=== PATIENT | female | born 1990 | race Caucasian/White ===

== ENCOUNTER → 2018-07-16 16:11 | Outpatient (CLI) | payer SELFPAY ==
[2018-07-16 17:53] LABS: Hemoglobin 14.2 g/dl (12.0-15.0); Mean Corp Hgb Conc 34.6 g/gl (32-36); Mean Corpuscular Hgb 30.1 pg (27.0-32.0); Mean Platelet Vol. 10.9 fl (6.2-12.0); Platelet Count 227 K/mm3 (150-450); RBC Distribution Width CV 12.6 % (11.6-14.6); RBC Distribution Width SD 40.6 fl (35.1-43.9); Red Blood Count 4.71 M/mm3 (4.2-5.4); White Blood Count 7.9 K/mm3 (4.4-11.0)
[2018-07-16 17:55] LABS: Scan Indicated on CBC? Y/N NO
[2018-07-16 17:57] LABS: AST(SGOT) 16 U/L (15-37); Alanine Aminotransfer ALT/SGPT 34 U/L (13-56); Albumin, Serum 4.3 g/dL (3.2-5.0); Alkaline Phosphatase 28 U/L (45-117); Globulin 3.3 g/dL (2.2-4.2); Protein, Total 7.6 g/dL (6.4-8.2)
== END ==
PROVIDERS: Visit Provider Obstetrics & Gynecology
DX: R10.11 Right upper quadrant pain (principal)
CPT/HCPCS: 36415; 80076; 85027

== ENCOUNTER → 2018-07-29 | Outpatient (CLI) | payer SELFPAY ==
--- NOTE | 2018-07-29 07:37 | CT_ITS ---
STUDY: CT ABDOMEN WITH CONTRAST REASON FOR EXAM: Female, 27 years old. 1 1/2 year history of right upper quadrant pain. RADIATION DOSAGE (If Supplied By Facility): CTDIvol = ( 11.93 ) mGy, DLP = ( 534.23 ) mGycm TECHNIQUE: Transaxial images were obtained post I.V. administration of 100 IV/Oral Isovue 300, and with oral contrast. Sagittal and coronal images were reconstructed. Individualized dose optimization techniques were used for this CT. COMPARISON: None. FINDINGS: The visualized lung bases are unremarkable. The visualized portions of the heart are within normal limits. There is decreased attenuation of the liver consistent with steatosis. Normal gallbladder and extrahepatic biliary system. Normal spleen. Normal pancreas. Normal bilateral adrenal glands. Normal right kidney. Normal left kidney. There is a small hiatal hernia. Normal small intestine. Moderate amount of fecal material is seen in the colon. The appendix is visualized and appears normal. Normal abdominal aorta. Normal inferior vena cava. Normal retroperitoneum. Normal abdominal wall. Normal osseous structures. CT/Abdomen WITH IV Contrast IMPRESSION: Normal enhanced CT of the abdomen. Electronically Signed: Abdias Thornton, at 15:55 EDT , Service support ,
== END | disposition home or self-care (01) ==
LOC: CT 07:35
PROVIDERS: Family Provider Family Medicine; PCP Family Medicine; Referring Provider Obstetrics & Gynecology; Visit Provider Obstetrics & Gynecology
DX: R10.11 Right upper quadrant pain (principal)
CPT/HCPCS: 74160; Q9967

== ENCOUNTER → 2019-10-05 11:36 | Outpatient (CLI) | payer OTHER, SELFPAY ==
[2019-10-05 12:15] LABS: Absolute Lymphocyte Count 2.44 X10^3/uL (0.83-4.51); Absolute Neutrophil Count 3.7 X10^3/uL (2.0-7.7); Basophil# 0.02 X10^3/uL; Basophil% 0.3 % (0-1); Eosinophil# 0.09 X10^3/uL; Eosinophils% 1.4 % (0-5); Hematocrit 38.9 % (37-47); Hemoglobin 13.2 g/dL (12.0-15.0); Lymphocyte # 2.44 X10^3/ul (4.0); Lymphocyte % 36.6 % (19-41); Mean Corp Hgb Conc 33.9 g/dL (32-36); Mean Corpuscular Hgb 30.6 pg (27.0-32.0); Mean Platelet Vol. 10.5 fl (6.2-12.0); NRBC Flagged by Analyzer 0 % (0-5); Neutrophil % 55.5 % (47-70); Platelet Count 202 K/mm3 (150-450); RBC Distribution Width CV 11.9 % (11.6-14.6); RBC Distribution Width SD 39.1 fl (35.1-43.9); Red Blood Count 4.32 M/mm3 (4.2-5.4); White Blood Count 6.7 K/mm3 (4.4-11.0)
[2019-10-05 12:30] LABS: Color, Urine Yellow (Yellow); Glucose, Dipstick Normal (Normal); Ketone-Dipstick 5 mg/dl (Negative); Leukocyte Esterase-Dipstick 500 /ul (Negative); Nitrite-Dipstick Negative (Negative); Occult Blood-Urine 150 /ul (Negative); Protein-Dipstick 15 mg/dl (Negative); Urine Bilirubin Dipstick Negative (Negative); Urine Clarity Sl. Cloudy (Clear); Urine Urobilinogen Normal (Normal)
[2019-10-05 13:15] LABS: Thyroid Stim Hormone (TSH) 2.45 uIU/mL (0.358-3.74)
[2019-10-05 13:28] LABS: Amphetamine Urine VISTA NEGATIVE (<1000 ng/mL); Barbiturate Urine VISTA NEGATIVE (< 200 ng/mL); Benzodiazepine Urine VISTA NEGATIVE (< 200 ng/mL); Cocaine Urine VISTA NEGATIVE (< 300 ng/mL); Ecstacy Urine VISTA NEGATIVE (< 500 ng/mL); Methadone Urine VISTA NEGATIVE (< 300 ng/mL); PCP Urine VISTA NEGATIVE (< 25 ng/mL); THC Urine VISTA NEGATIVE (< 50 ng/mL); Vista UDS pH Range 5
[2019-10-05 13:42] LABS: HIV - WCH Non-Reactive (Nonreactive); Hepatitis B Surface Antigen Non-Reactive (Nonreactive); Hepatitis C Antibody Non-Reactive (Nonreactive); Rubella IgG > 500.0 IU/mL
[2019-10-07 06:07] LABS: Chlamydia By Nucleic Acid AMP Negative (Negative)
[2019-10-07 07:37] LABS: Gonococcus By Nucleic Acid AMP Negative (Negative)
[2019-10-07 11:06] LABS: Prenatal RPR NONREACTIVE (NONREACTIVE)
[2019-10-07 15:31] LABS: HPV Reflexed? NOT INDICATED
== END ==
PROVIDERS: PCP Family Medicine; Visit Provider Obstetrics & Gynecology
DX: Z34.81 Encounter for supervision of other normal pregnancy, first trimester (principal); Z11.3 Encounter for screening for infections with a predominantly sexual mode of transmission; Z12.4 Encounter for screening for malignant neoplasm of cervix
CPT/HCPCS: 36415; 80307; 81002; 84443; 85025; 86703; 86762; 86803; 87086; 87088; 87340; 87491; 87591; 88175; G0145

== ENCOUNTER → 2020-02-23 08:59 | Outpatient (CLI) | payer OTHER, SELFPAY ==
[2020-02-23 11:30] LABS: Hematocrit 33.1 % (37-47); Mean Corp Hgb Conc 33.2 g/dL (32-36); Mean Corpuscular Hgb 30.6 pg (27.0-32.0); Mean Corpuscular Volume 92.2 fL (81-99); Mean Platelet Vol. 10.6 fl (6.2-12.0); Platelet Count 179 K/mm3 (150-450); RBC Distribution Width CV 13.5 % (11.6-14.6); Red Blood Count 3.59 M/mm3 (4.2-5.4); White Blood Count 5.7 K/mm3 (4.4-11.0)
[2020-02-23 11:33] LABS: Glucose Challenge Gest 1H 50g 169 mg/dL (70-140)
== END ==
PROVIDERS: PCP Family Medicine; Visit Provider Obstetrics & Gynecology
DX: Z34.83 Encounter for supervision of other normal pregnancy, third trimester (principal)
CPT/HCPCS: 36415; 82950; 85027

== ENCOUNTER → 2020-03-02 09:49 | Outpatient (CLI) | payer OTHER, SELFPAY ==
[2020-03-02 11:37] LABS: Glucose GTT-Gestation. Fasting 72 mg/dL (<105)
[2020-03-02 13:02] LABS: Glucose GTT-Gestational 1 Hr 118 mg/dL (<190)
[2020-03-02 13:04] LABS: Glucose GTT-Gestational 2 Hr 129 mg/dL (<165)
[2020-03-02 14:35] LABS: Glucose GTT-Gestational 3 Hr 122 L (<145)
== END ==
PROVIDERS: PCP Family Medicine; Referring Provider Obstetrics & Gynecology; Visit Provider Obstetrics & Gynecology
DX: O24.912 Unspecified diabetes mellitus in pregnancy, second trimester (principal); Z3A.00 Weeks of gestation of pregnancy not specified
CPT/HCPCS: 36415; 82951; 82952

== ENCOUNTER → 2020-04-19 11:50 | Outpatient (CLI) | payer OTHER, SELFPAY ==
[2016-12-05 06:56] VITALS: BMI 30.4
== END ==
PROVIDERS: PCP Family Medicine; Visit Provider Obstetrics & Gynecology
DX: Z36.85 Encounter for antenatal screening for Streptococcus B (principal)
CPT/HCPCS: 87081

== ENCOUNTER 2020-05-13 23:50 | Outpatient (CLI) | payer SELFPAY, OTHER ==
[2016-12-05 06:56] VITALS: BMI 30.4
[2020-05-14 00:07] VITALS: BP 132/86; PULSE 97; TEMP 36.4; O2SAT 99
[2020-05-14 00:17] VITALS: BMI 32.9
--- NOTE | 2020-05-14 09:52 | OB.TRI.HP_ITS ---
History of Present Illness Date of Service: 05/13/20 Was patient seen by the physician?: No Reason For Visit: RULE OUT LABOR Date of Service: 05/13/20 Final LE: 05/17/20 Final LE Source: US <20 weeks Gestational age: 39 Weeks and 3 Days History of Present Illness: 39+ week intrauterine presents with some contractions. Concerned she might be in labor. Allergies No Known Allergies Allergy (Verified 05/14/20 00:18) Physical Exam Vitals: Vital Signs Temp Pulse BP Pulse Ox 97.6 F L 97 132/86 H 99 05/14/20 00:07 05/14/20 00:07 05/14/20 00:07 05/14/20 00:07 NST - FHR Rate Baby A NST Reactive:: Yes FHR Category:: Category I Impression/Plan 39+ week intrauterine with some false labor. No change after monitori ng. Reactive nonstress test. To return with labor or for follow-up in the office per routine.
== END 2020-05-14 03:10 | disposition home or self-care (01) ==
LOC: WPOUT 23:59 → WP 05-14 00:09
PROVIDERS: PCP Family Medicine; Visit Provider Obstetrics & Gynecology
DX: O47.1 False labor at or after 37 completed weeks of gestation (principal); Z3A.39 39 weeks gestation of pregnancy
CPT/HCPCS: 59025; 59050; 99218; G0378

== ENCOUNTER 2020-05-17 14:46 | Inpatient (IN) | payer SELFPAY, OTHER ==
[2020-05-17] VITALS (35 sets, daily range): BP systolic 100–141; BP diastolic 55–83; PULSE 83–100; TEMP 36.1–38.1; O2SAT 89–99; BMI 34.1
[2020-05-17] MEDS: Lactated Ringers 1,000 ML 50 ML IV (15:37)
[2020-05-17] MEDS: Lactated Ringers 500 ML 999 ML IV (15:37)
[2020-05-17 16:18] LABS: Absolute Lymphocyte Count 1.76 X10^3/uL (0.83-4.51); Absolute Neutrophil Count 5.7 X10^3/uL (2.0-7.7); Basophil# 0.01 X10^3/uL; Basophil% 0.1 % (0-1); Eosinophil# 0.03 X10^3/uL; Eosinophils% 0.4 % (0-5); Hematocrit 32.9 % (37-47); Hemoglobin 10.9 g/dL (12.0-15.0); Lymphocyte # 1.76 X10^3/ul (4.0); Lymphocyte % 22.1 % (19-41); Mean Corp Hgb Conc 33.1 g/dL (32-36); Mean Corpuscular Hgb 29.3 pg (27.0-32.0); Mean Corpuscular Volume 88.4 fL (81-99); Mean Platelet Vol. 10.6 fl (6.2-12.0); Monocyte# 0.42 X10^3/uL; Monocyte% 5.3 % (0-10); NRBC Flagged by Analyzer 0 % (0-5); Neutrophil # 5.71 X10^3/uL (2.7-7.7); Neutrophil % 71.7 % (47-70); POSITIVE COUNT YES; Platelet Count 171 K/mm3 (150-450); RBC Distribution Width CV 14.8 % (11.6-14.6); RBC Distribution Width SD 47.4 fl (35.1-43.9); Red Blood Count 3.72 M/mm3 (4.2-5.4)
[2020-05-17 16:37] LABS: Differential Indicated SCAN CRITERIA MET
[2020-05-17] MEDS: fentaNYL-bupivacaine (epidural) 100 ML BAG EPIDURAL (17:17)
[2020-05-17 17:25] LABS: Platelet Estimate ADEQUATE (ADEQ); Red Cell Morphology NORM C+C NORMAL (NORM C&C)
[2020-05-17] MEDS: Oxytocin 30 units/NS 500 ml 30 UNITS/500 ML IV.SOLN IV (18:07)
--- NOTE | 2020-05-17 19:28 | PCM.HP.BLA ---
History and Physical Date of Admission: 05/17/20 ACOG ANTEPARTUM RECORD - HISTORY AND PHYSICAL (05/17/2020) Name: ZAN SANTOS History of this : This is a 29 year old [id number] presents at 40 wks + 0 days gestation in active labor. OB Physician: Froilan Parker MD [place] Physician: Sigifredo ...................................................................... : 1990 Age: 29 Address: [address] [place] [address] Phone: ([phone] Insurance Carrier: [employer] [id number] Emergency Contact: WILLIAM VAUGHNMARCO A [phone] ...................................................................... Final LE: 05/17/20 By Ultrasound: 12 weeks 0 days PARITY: (G-Total Pregnancies P-Fullterm,Premature,Induced AB,Spont AB, Ectopics, Multiple,Living) LE CONFIRMATION: By LMP: 08/11/19 Initial Exam: 05/17/20 By First Ultrasound Exam: 05/12/20 Final LE: 05/17/20 OB PROBLEM LIST: 4 hour 2nd stage with her first child, vac assisted vaginal delivery BILATERAL HYDRONEPHROSIS, HYDROURETER --resolved EPDS on 10/05/2019 = 2 Formula feeding Hx of UTI's MALE msAFP/CF/SMA screening declined Plans to have an epidural Weekly headaches since - Resolved with peppermint oil ALLERGIES: No Known Drug Allergies MEDICATIONS: Calcium 600 600 mg calcium (1,500 mg) tablet Mybite Calcium + DHA 28 mg iron- 975 mcg-200 mg combo pack One pill by mouth once a day SOCIAL HISTORY: Smoking - Never Alcohol Use - denies drinking Diet - moderate, balanced diet and caffeine < 2 drinks per day Lifestyle - Exercise - active 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 Drug Use - denies use of street drugs Sexual Activity - Residence - lives with Place of - [place], [place] Spouse-Sig Other Name - William Santos Spouse-Sig Other Occupation - [employer] Spouse-Sig Other Phone No - [phone] Children Name(s) - Monse Barraza PRIOR DELIVERY HISTORY DEL DATE GEST LAB WT LB WT OZ TYPE ANES LABOR TX 13 Dec 10 39 24 8 1 Vacuu Epidural No ANTEPARTUM FLOW CHART VISIT RTC FU F F CO U U DATE WK MD WKS HT PN HR M SS BP ED WT CO GL D EF ST __ ____ ___ __ __ ___ __ __ __ ___ __ __ __ ___ __ 16 Apr JMW 1 38 V + + 130/76 sl 193 tr - S Apr JMW 1 37 + + 122/68 sl 193 - - 04 Apr JMW 1 37 V + + 128/72 sl 194 - - ft 75 PH 24 Mar JMW 1 36 V + + 110/64 sl 193 tr - ft 50 -2 09 Mar SHM 2 33 V + + 116/78 0 190 - - Feb SHM 2 33 V + + 128/72 0 187 tr ne 13 Mar 25 SHM 1 30 V + + 130/72 0 187 ne ne Feb 20 SHM 2 29 V + + 118/68 0 185 tr ne 02 Feb 16 SHM 4 24 ? + + 110/76 0 182 - - 04 Jan 13 SHM 4 + 118/76 0 181 tr - 07 Dec 09 SHM 4 + + 128/74 0 182 - - 09 Nov 05 SHM 4 + + 130/82 0 177 tr - ANTEPARTUM NOTE(S): May 09 2020: Ctxs-mild, Good FM May 04 2020: Low Pressure,Good FM Apr 27 2020: Low Pressure, Good FM Apr 19 2020: GBS Today,LARC form signed,Good FM Apr 04 2020: Mar 22 2020: Mar 08 2020: Feb 22 2020: US, GCT/labs today Jan 26 2020: see note Dec 29 2019: Comp u/s today, doing well Nov 30 2020: Nov 03 2019: very tired COMPREHENSIVE ANTEPARTUM NOTE(S): Apr 27 2020: H taken to OB. tkg Apr 11 2020: MFM US 04/10/20: LANA wnl, EFW 2748g (6lb1oz in 63rd%). b/l hydronephrosis with hydroureter (r. 5.4 and L. pelvix 7.1mm). Pt declined Peds Uro consultation. Apr 04 2020: Zan is here for a appt at 33.6 w. Baby active. No concerns today. Sleeping better the past week or so. Tired with 3 yo at home. DRC. Apr 04 2020: [facility] follow up pending for pyelectasis this week. Feels less anxious about transition from 1 to 2 little ones. Discussed packing hospital bag later this month. Mar 22 2020: Zan is here for PNV, Feeling really good. Ready at home. Having good FM. No edema noted. Eating and taking fluids without difficulty, No concerns today. Urine tr and neg. LSS Mar 22 2020: pyelectasis, reviewed MFM recommendations for surveillance. US scheduled with MFM in 2 weeks. Pt understands that abnormality is more common in fetuses with DS however overall risk for DS associated with isolated dilation is low. Discussed aneuploidy screening further, pt declines. c/o low back pain, discussed PT vs. chiropractry. Pt plans to f/u with chiropractor. Mar 09 2020: MFM eval 03/09/20 appreciated: EFW 1576g (55th%), LANA 14.6cm with bilateral hydronephrosis and hydroureter. Recommend: -q4week growth and renal assessment at [facility] - consultation with Peds Uro - MFM to arrange. -Normal delivery indications. -Peds eval prior to hospital discharge to r/o need for additional eval. -Amoxicillin ppx 10mg/kg per day neonatally - renal US and Ped Mar 08 2020: Zan is here for PNV. Has no concerns for today. States that she feels real good. Able to eat and drinking plenty of fluids. Having good FM. Mentions that she does get some swelling in her feet by end of day but no edema noted presently. LSS Mar 08 2020: No complaints. MFM appt tomorrow to evaluated pyelectasis. PTL, FM precautions. Feb 23 2020: Zan is here for PNV. Having US today as well as GCT/labs. States she is feeling very well. Headaches are gone. Eating and takig fluids without difficulty. Good FM. No edema noted. Urine dipped tr and neg. LSS Feb 23 2020: pyelectasis persists. EFW 1236g (56th%), LANA 16.6cm. Refer to MFM. PTL precautions. Discussed PPBC. Plans condoms. Jan 26 2020: Zan is here for visit. She is feeling well except for R sciatic pain. Does not have pain all the time but does have this intermittently. Reviewed may consider Chiropractor, Massage, heating pad. Glucola given with instructions. LMT Jan 26 2020: Discussed exercises to improve sciatica. May also consider PT, chiropractry. PTL, ROM precautions. Dec 29 2019: Zan is here for comp u/s today. She is doing well, without question or concern. LMT Dec 29 2019: Headaches improved with peppermint oil temporally. Anatomy scan today, AGA, 65th%, mildly dilated renal pelvices bilaterally, anatomy otherwise wnl, POSTERIOR placenta. Ok for . Discussed renal pelvis anatomy, potential for increased risk for UTI , possible obstruction vs. variant. No other soft markers noted. Plan for rpt US at 28-32wga - if persists will refer to [facility]. Dec 01 2019: Declines genetics testing. She has been having SOLER's more often. Most of the time they are resolved w/Tylenol and rest. Wearing her glasses also offer some help. Switched Ca-Mg-Zn supplement to night time, which helped her daytime fatigue. Encouraged plenty of water. Could also try Zyrtec or Claritin during the day and Benadryl @ bedtime for SOLER's. Denies any associated visual disturbances. BP WNL t Dec 01 2019: Headaches improved since changing timing of vitamins/supplements to evening. I also recommended APAP/caffeine/benadryl for persistent headaches. Discussed movement. Discomforts of . Nov 04 2019: TELEHEALTH NOB VISIT, TOTAL TIME: 30 MINUTES. Zan is a 29 year old with an LE of 05/17/2020, current GA is 12 w 1 d. She reports that, aside form fatigue and weekly headaches, she is feeling well. Discussed making sure that she is getting plenty of water, eating regularly with protein included throughout the day, and resting. She is taking a supplement containing Magnesium/Calcium/Zinc Nov 03 2019: More fatigue than with first . Advised this is pretty normal and should start to improve soon. CBC was WNL, no anemia. LMT +++++++++NEW +++++++++ Nov 03 2019: Reviewed labs wnl, Rh positive. Inquires about progesterone supplementation for her mood, hx baby blues. Discussed potential benefits . Do not recommend at this time. Will take Magnesium to help with sleep. Like has fatigue, CBC wnl. REVIEW OF SYSTEMS: GENERAL - Denies fever, or chills SKIN - Denies rash, new skin lesions, or change in moles EYES - Denies blurred vision, or change in visual acuity EARS - Denies ear pain, or difficulty hearing NOSE - Denies nasal congestion, discharge, or bleeding MOUTH - Denies sore throat, or difficulty swallowing NECK - Denies pain or swelling RESPIRATORY - Denies shortness of breath, cough, wheezing CARDIOVASCULAR - Denies palpitations, chest pain, orthopnea, PND, peripheral edema, syncope or claudication GASTROINTESTINAL - Denies nausea, vomiting, diarrhea, constipation, Denies abdominal pain, melena and or bright red blood GENITOURINARY - Denies dysuria, frequency of urination, urgency, or hesitancy MUSCULOSKELETAL - Denies joint or muscle pain, or back pain NEUROLOGICAL - Denies localized numbness, weakness, or tingling PSYCHIATRIC - Denies depression, anxiety, substance abuse or suicide attempts ENDOCRINE - Denies heat or cold intolerance, weight loss or gain, increasing thirst HEMATO-IMMUNOLOGIC - Denies easy bruising, bleeding, oral ulcerations or recurrent infections GENETICS SCREENING: Age 35+ years: No Thalassemia: No Neural Tube Defect: No Down Syndrome: No SHANON-SACHS: No Sickle Cell Disease: No Hemophilia: No Musc. Dystrophy: No Cystic Fibrosis: No-declines screening [place] Chorea: No Mental Retardation: No Fragile X: No Other genetic: No Other defects: No SABs/still births: No Drugs since LMP: No INFECTION HISTORY: High risk AIDS: No High risk Hepatitis: No Exposed to TB: No Exposed to Herpes: No Rash/viral illness since LMP: No History of STD: No MENSTRUAL HISTORY: *Menses Amount/Duration: extendedMenses Regularity: IrregularFrequency: monthlyMenarche (Age Onset): 15* PAST SUMMARY: PARITY: 1. Total Pregnancies............ 2 2. Full Term Pregnancies........ 1 3. Premature.................... 0 4. Abortions - Induced.......... 0 5. Abortions - Spontaneous...... 0 6. Ectopics..................... 0 7. Multiple Births.............. 0 8. Living Children.............. 1 PAST #1: Date of :.................. 12/06/16 Gestation Weeks:................ 39 Length of labor(hours):......... 24 Sex:............................ F Weight-lbs:............... 8 Weight-oz:................ 1 Type of Delivery:............... Vacuum Type of Anesthesia:............. Epidural Place of Delivery:.............. [place] Treatment of Labor?:.... No Comment: 4 HR 2ND STAGE PHYSICAL EXAMINATION General Appearence: 29 yo female in no acute distress Vital Signs: AF, VSS Heart: RRR without rubs or gallops Lungs: CTA x 2 Breasts: deferred Abdomen: gravid Pelvis: Cervix: 4/90 BBOW Presentation: cephalic Station: -2 Fetus: Size: AGA Movement: present Heart: present LAB TEST(S) ORDERED SINCE:08/21/19 02/23/2020 GLUCOSE CHALLENGE GEST 1H 50G 02/23/2020 CBC-COMPLETE BLOOD CNT NO DIFF 10/07/2019 RPR 10/07/2019 PAP I-G W/RFX HRHPV-APTIMA 10/07/2019 CULTURE, URINE 10/07/2019 CHLAMYDIA/GC KEIKO APTIMA 10/05/2019 URINE DRUG SCREEN (VISTA) 10/05/2019 URINALYSIS, ROUTINE (DIPSTICK) 10/05/2019 THYROID STIM HORMONE (TSH) 10/05/2019 RUBELLA IGG 10/05/2019 T AND S-NO CHARGE W/PNP 10/05/2019 HIV - [facility] 10/05/2019 HEPATITIS C ANTIBODY 10/05/2019 HEPATITIS B SURFACE ANTIGEN 10/05/2019 CBC W/DIFF, AUTOMATED 05/17/2020 TYPE AND SCREEN 05/17/2020 COVID 19 AG RAPID (RN COLLECT) 05/17/2020 CBC W/DIFF, AUTOMATED 04/22/2020 CULTURE, GROUP B STREPTOCOCCUS 03/02/2020 GESTATIONAL GTT 3HR 100G == ==== Order Observation Description Value Ref_Range A* Site == ==== COVID 19 AG RAP NOTE [facility]~[address] [place], [address]~ TYPE AND SCRE AB SCREEN GEL NEGATIVE ML CBC W/DIFF, AUT NOTE [facility] CBC W/DIFF, AUT PLT EST ADEQUATE ADEQ ML CBC W/DIFF, AUT RED CELL MORPH NORM C+C NORMAL NORM C C ML CULTURE, GROUP NOTE [facility] GESTATIONAL GTT NOTE [facility] GESTATIONAL GTT GLU GTT-FASTING 72 mg/dL <105 ML GLUCOSE TOLERANCE TEST FOR Reference Interval GESTATIONAL DIABETES Fasting <105 mg/dL 1 hour <190 mg/dl 2 hour <165 mg/dl 3 hour <145 mg/dl GESTATIONAL GTT GLU GTT- 1HR 118 mg/dL <190 ML GESTATIONAL GTT GLU GTT- 2HR 129 mg/dL <165 ML GESTATIONAL GTT GLU GTT- 3HR 122 L <145 ML GLUCOSE CHALLEN NOTE [facility] GLUCOSE CHALLEN GLU GEST 50G 1H 169 mg/dL 70-140 H ML CBC-COMPLETE BL NOTE [facility] CBC-COMPLETE BL WBC 5.7 K/mm3 4.4-11.0 ML CBC-COMPLETE BL RBC 3.59 M/mm3 4.2-5.4 L ML CBC-COMPLETE BL HGB 11.0 g/dL 12.0-15.0 L ML CBC-COMPLETE BL HCT 33.1 % 37-47 L ML CBC-COMPLETE BL MCV 92.2 fL 81-99 ML CBC-COMPLETE BL MCH 30.6 pg 27.0-32.0 ML CBC-COMPLETE BL MCHC 33.2 g/dL 32-36 ML CBC-COMPLETE BL RDW CV 13.5 % 11.6-14.6 ML CBC-COMPLETE BL RDW SD 45.0 fl 35.1-43.9 H ML CBC-COMPLETE BL PLT 179 K/mm3 150-450 ML CBC-COMPLETE BL MPV 10.6 fl 6.2-12.0 ML RPR NOTE [facility] RPR RPR NONREACTIVE NONREACTIVE ML CULTURE, URINE NOTE [facility] HEPATITIS C ANT NOTE [facility] HEPATITIS C ANT HEPATITIS C AB Non-Reactive Nonreactive ML Non Reactive: < 0.8 Equivocal: >/= 0.8 to < 1.0 Reactive: >/= 1.0 The CDC recommends that a reactive/equivocal HCV antibody result be followed up by the HCV Nucleic Acid Amplification test (137184) HEPATITIS B MELISSA NOTE [facility] HEPATITIS B MELISSA HEPB SURFACE AG Non-Reactive Nonreactive ML HIV - [facility] NOTE [facility] HIV - [facility] HIV - [facility] Non-Reactive Nonreactive ML RUBELLA IGG NOTE [facility] RUBELLA IGG RUBELLA IGG > 500.0 IU/mL ML Antibody results Interpretation of Immune Status < 5 IU/ml Presumed Non-immune 5 - < 10 IU/ml Equivocal > or = 10 IU/ml Presumed Immune URINE DRUG SCRE NOTE [facility] URINE DRUG SCRE TO BE CONFIRMED ML CONFIRMATORY TESTING FOR ALL POSITIVE URINE DRUG SCREEN RESULTS WILL ONLY BE SENT OUT UPON PHYSICIAN ORDER. VISTA Urine Drug Screen methods provide only preliminary analytical test results. A more specific alternate chemical method must be used in order to obtain a confirmed analytical result. Gas chromatography/mass spectrometery (GC/MS) is the preferred confirmatory method. Clinical consideration and professional judgement should be applied to any drug of abuse test result, particularly when preliminary positive results are used. URINE TCA TESTING MUST BE ORDERED SEPARATELY. USE TEST MNEMONIC: UTCA URINE DRUG SCRE VISTA UDS PH 5 ML URINE DRUG SCRE AMPHETAMINES NEGATIVE <1000 ng/mL ML URINE DRUG SCRE BARBITIURATES NEGATIVE < 200 ng/mL ML URINE DRUG SCRE BENZODIAZIPINE NEGATIVE < 200 ng/mL ML URINE DRUG SCRE COCAINE NEGATIVE < 300 ng/mL ML URINE DRUG SCRE ECSTACY NEGATIVE < 500 ng/mL ML URINE DRUG SCRE METHADONE NEGATIVE < 300 ng/mL ML URINE DRUG SCRE OPIATES NEGATIVE < 300 ng/mL ML URINE DRUG SCRE PCP NEGATIVE < 25 ng/mL ML URINE DRUG SCRE THC NEGATIVE < 50 ng/mL ML THYROID STIM HO NOTE [facility] THYROID STIM HO TSH 2.45 uIU/mL 0.358-3.74 ML Reason for Type AND Screen/Red Cells: Surgery? N [facility]~[address] [place], [address]~ T AND BLOOD TYPE GEL A POSITIVE N ML T AND AB SCREEN GEL NEGATIVE N ML URINALYSIS, ROU NOTE [facility] URINALYSIS, ROU COLOR Yellow Yellow ML URINALYSIS, ROU CLARITY Sl. Cloudy Clear ML URINALYSIS, ROU GLUCOSE, UR Normal mg/dl Normal ML URINALYSIS, ROU BILIRUBIN URINE Negative mg/dL Negative ML URINALYSIS, ROU KETONE UR 5 mg/dl Negative H ML URINALYSIS, ROU SP.GR. DIPSTX 1.020 1.002-1.030 ML URINALYSIS, ROU PH UR 6.0 5.0 - 8.0 ML URINALYSIS, ROU PROT DIPSTX 15 mg/dl Negative H ML URINALYSIS, ROU UROBILI Normal mg/dl Normal ML URINALYSIS, ROU NITRITE UR Negative Negative ML URINALYSIS, ROU OCCULT BLOOD-UR 150 /ul Negative H ML URINALYSIS, ROU LEUK ESTERASE 500 /ul Negative H ML CBC W/DIFF, AUT NOTE [facility] CBC W/DIFF, AUT WBC 6.7 K/mm3 4.4-11.0 ML CBC W/DIFF, AUT RBC 4.32 M/mm3 4.2-5.4 ML CBC W/DIFF, AUT HGB 13.2 g/dL 12.0-15.0 ML CBC W/DIFF, AUT HCT 38.9 % 37-47 ML CBC W/DIFF, AUT MCV 90.0 fL 81-99 ML CBC W/DIFF, AUT MCH 30.6 pg 27.0-32.0 ML CBC W/DIFF, AUT MCHC 33.9 g/dL 32-36 ML CBC W/DIFF, AUT RDW CV 11.9 % 11.6-14.6 ML CBC W/DIFF, AUT RDW SD 39.1 fl 35.1-43.9 ML CBC W/DIFF, AUT PLT 202 K/mm3 150-450 ML CBC W/DIFF, AUT MPV 10.5 fl 6.2-12.0 ML CBC W/DIFF, AUT NEUT% 55.5 % 47-70 ML CBC W/DIFF, AUT LY% 36.6 % 19-41 ML CBC W/DIFF, AUT MONO% 6.0 % 0-10 ML CBC W/DIFF, AUT EO% 1.4 % 0-5 ML CBC W/DIFF, AUT BASO% 0.3 % 0-1 ML CBC W/DIFF, AUT IM GRAN % 0.200 % 0.0-0.9 ML IG% - Immature Granulocytes (promyelocytes, myelocytes and metamyelocytes) > 1% indicates that a LEFT SHIFT is Present. CBC W/DIFF, AUT ABSOLUTE NEUT 3.7 X10 3/uL 2.0-7.7 ML CBC W/DIFF, AUT ABSOLUTE LYMPH 2.44 X10 3/uL 0.83-4.51 ML CBC W/DIFF, AUT NRBC, FLAGGED 0 % 0-5 ML PAP I-G W/RFX H NOTE [facility] PAP I-G W/RFX H DIAGN Comment . LC NEGATIVE FOR INTRAEPITHELIAL LESION OR MALIGNANCY. PAP I-G W/RFX H ADEQ Comment . LC Satisfactory for evaluation. Endocervical and/or squamous metaplastic cells (endocervical component) are present. PAP I-G W/RFX H PERFORM Comment . DREW Tuttle, [employer] Office Telephone Clerk (ASCP) PAP I-G W/RFX H TEST METHOD Comment . LC This liquid based ThinPrep(R) pap test was screened with the use of an image guided system. PAP I-G W/RFX H COMM . . LC PAP I-G W/RFX H PAPSMR Comment . LC The Pap smear is a screening test designed to aid in the detection of premalignant and malignant conditions of the uterine cervix. It is not a diagnostic procedure and should not be used as the sole means of detecting cervical cancer. Both false-positive and false-negative reports do occur. PAP I-G W/RFX H HPV RFLX Comment . LC The HPV DNA reflex criteria were not met with this specimen result therefore, no HPV testing was performed. Performed at: [address] [id number] Facilities Operator: Radha Thompson MD, Phone: [phone] CHLAMYDIA/GC NA NOTE [facility] CHLAMYDIA/GC NA CHLAMY,NUC ACID Negative Negative LC CHLAMYDIA/GC NA GC BY NUC ACID Negative Negative LC Performed at: =[address] [id number] Facilities Operator: Radha Thompson MD, Phone: [phone] COVID AG -RAPID *Negative results from patients with symptom onset beyond five days should be treated as presumptive and confirmed by a molecular assay if clinically necessary. Negative results should not be used as the sole basis for treatment or for patient management. *Positive results do not differentiate between SARS-CoV and SARS-CoV-2. If differentation of the specific SARS virus is desired an additional sample and an additional order is required. * This test has not been FDA cleared or approved; the test has been authorized by FDA under an Emergency Use Authorization (EAU) for use by laboratories certified under CLIA that meet the requirements to perform moderate, high, or waived complexity tests. Normal Reference Range: Negative Testing performed on [employer] analyzer CHRISTINA (lateral flow immunofluorescent assay) SARS-CoV-2 (COVID 19) Negative A POSITIVE BEULAH Culture Group B Beta Streptococcus is not isolated. CULTURE TUBE IN MICRO. THANK YOU. Urine Culture ORGANISM 1: Mixed Gram Positive Organisms Supply Count 11,000-25,000 MIX CULTURE Mixed contaminants. Submit a new specimen if indicated. == ==== Impression /Plan: 40 wks + 0 days intrauterine in active labor. Preparations in progress for delivery.
[2020-05-17] MEDS: Oxytocin 30 units/NS 500 ml 30 UNITS/500 ML IV.SOLN 334 UNITS IV (20:47)
[2020-05-17] MEDS: Methylergonovine 0.2 MG/ML Ampul IM (20:55)
--- NOTE | 2020-05-17 20:59 | PCM.OPRPT ---
Vaginal Delivery Maternal Presentation: Active Labor Amniotic Membrane Rupture Type: Artificial Amniotic Fluid Description: Clear Final LE: 05/17/20 Final EL Source: US <20 weeks Gestational age: 40 Weeks and 0 Days [place] doctor who attended delivery (if requested by OB): Lida Cifuentes Date of Procedure: 05/17/20 Pre-Operative Diagnosis: IUP Post-Operative Diagnosis: IUP Surgery/ Procedure Performed: Spontaneous Vaginal Delivery Type of Anesthesia: Epidural Description of Procedure: Spontaneous vaginal delivery of a viable male infant with Apgars of 8/8 from an occiput anterior presentation with clear amniotic fluid and normal three-vessel placenta. First-degree midline episiotomy extended to a second-degree midline laceration repaired with 3-0 Rapide suture under epidural. Sponges okay. Delivery physician: Froilan Parker MD. Presentation: Vertex Placental Delivery Description: Spontaneous Placenta Disposition: [facility] Cord Vessel Description: 3 Vessels Cord Entanglement: None Estimated Blood Loss: 250 cc A gender: Male (1 minute): 8 (5 minute): 8 Episiotomy Description: Midline, 1st degree Laceration: Midline, 2nd degree Medications given after delivery: IV Pitocin, IM Methergin Complications: None
--- NOTE | 2020-05-17 21:01 | DCINST_ITS ---
<Froilan Parker - Last Filed: 05/17/20 21:01> Discharge Diet: No Restrictions Discharge Activity: May Shower, May Take a Tub Bath May resume sexual activity in: 4-6 weeks Additional Activity Instructions:: Nothing in the vagina for 4-6 weeks. You may return to work/school in 6 weeks. Call your doctor if you observe: Inability to urinate, Inability to have a bowel movement, Using more than one pad per hour Additional Instructions: If you experience any of the following, contact your healthcare provider. * Bleeding that soaks a pad every hour for 2 hours * Fever 100.4 or higher * Unrelieved incision or abdominal pain * Swelling, redness, discharge or bleeding from your incision or episiotomy site * Your incision begins to separate * Problems urinating (including inability to urinate or burning while urinating). * Visual changes * Severe headache * Flu-like symptoms * Pain or redness in one of both of your breasts * Pain, warmth, tenderness or swelling in your legs, especially the calf area * Frequent nausea and vomiting * Symptoms of depression or anxiety If you experience any of the following, call 911 or go to the nearest Emergency Room. * Chest pain * Problems breathing * Seizure activity * Partial or complete paralysis of a body part, slurred speech, weakness or drooping of the face, or a sudden inability to walk or hold your balance Allergies/Adverse Reactions: Allergies No Known Allergies Allergy (Verified 05/14/20 00:18) Medications to take at Discharge Calcium Carbonate [Calcium] 500 mg PO DAILY 12/05/16 No122/Iron/Folic Acid [ Multi Tablet] 1 tab PO DAILY 12/05/16 Docusate Sodium [Colace] 100 mg PO BID PRN PRN #60 capsule 12/06/16 Ibuprofen [Motrin] 800 mg PO TID PRN PRN #30 tablet 12/06/16 Ferrous Gluconate 325 mg PO BIDCM #60 tablet 12/07/16 Calcium Carb,Gluc/Mag Ox,Gluc [Calcium Magnesium Caplet] 1 each PO DAILY 05/14/20 Please Follow Up With: Froilan Parker MD - [phone] When: Call to make an appointment with your doctor in 6 weeks. Primary Care Physician: Mu Mei MD [Primary Care Provider] - Test Results: Test results from this visit will be discussed in further detail at your follow- up appointment, if applicable. <Fox Singletary - Last Filed: 05/19/20 08:42> Additional Instructions: If you experience any of the following, contact your healthcare provider. * Bleeding that soaks a pad every hour for 2 hours * Fever 100.4 or higher * Unrelieved incision or abdominal pain * Swelling, redness, discharge or bleeding from your incision or episiotomy site * Your incision begins to separate * Problems urinating (including inability to urinate or burning while urinating). * Visual changes * Severe headache * Flu-like symptoms * Pain or redness in one of both of your breasts * Pain, warmth, tenderness or swelling in your legs, especially the calf area * Frequent nausea and vomiting * Symptoms of depression or anxiety If you experience any of the following, call 911 or go to the nearest Emergency Room. * Chest pain * Problems breathing * Seizure activity * Partial or complete paralysis of a body part, slurred speech, weakness or drooping of the face, or a sudden inability to walk or hold your balance Test Results: Test results from this visit will be discussed in further detail at your follow- up appointment, if applicable.
[2020-05-17] MEDS: Ibuprofen 600 MG Tablet PO (21:45)
[2020-05-17] MEDS: 0.9% Saline Lock 10 ML Syringe IV (23:20)
[2020-05-18 04:05] VITALS: BP 112/62; PULSE 85; RESP 16; TEMP 36.5
[2020-05-18 08:00] VITALS: BP 117/72; PULSE 88; RESP 16; TEMP 36.3; O2SAT 98
[2020-05-18] MEDS: Acetaminophen 500 MG Tablet 1000 MG PO ×2 (08:01→21:09)
--- NOTE | 2020-05-18 09:49 | PN.OBGYN_ITS ---
Subjective: Patient without complaints. Bottlefeeding. Minimal vaginal bleeding reported. Thinking about going home today but unsure. - Physical Exam Vitals/I&O's: Vital Signs Temp Pulse Resp BP Pulse Ox 97.3 F L 88 16 117/72 98 05/18/20 08:00 05/18/20 08:00 05/18/20 08:00 05/18/20 08:00 05/18/20 08:00 Oxygen Delivery Method Room Air Weight: 192 lb 10.944 oz Body Mass Index (BMI) 34.1 Intake and Output for Last 24 Hours 05/16/20 05/17/20 05/18/20 23:59 23:59 23:59 Intake Total 1398.23 / 1398.23 Output Total 550 / 550 200 / 200 Balance 848.23 / 848.23 -200 / -200 Microbiology Past 72 Hours 05/17/20 15:59 Mucosa - Nose SARS-CoV-2 Antigen (Rapid) - Final Laboratory Results 05/17/20 15:50: WBC 8.0, RBC 3.72 L, Hgb 10.9 L, Hct 32.9 L, MCV 88.4, MCH 29.3, MCHC 33.1, RDW Std Deviation 47.4 H, RDW Coeff of Ken 14.8 H, Plt Count 171, MPV 10.6, Immature Gran % (Auto) 0.400, Neut % (Auto) 71.7 H, Lymph % (Auto) 22.1, [place] % (Auto) 5.3, Eos % (Auto) 0.4, Baso % (Auto) 0.1, Absolute Neuts (auto) 5.7, Absolute Lymphs (auto) 1.76, Nucleated RBC % 0, Platelet Estimate ADEQUATE, RBC Morphology NORM C+C 05/17/20 15:50: Blood Type A POSITIVE, Antibody Screen NEGATIVE Current Medications Acetaminophen (Acetaminophen 500 Mg Tablet) 1,000 mg PO Q8H PRN PRN PRN Reason: Pain Score 1-3 Last Admin: 05/18/20 08:01 Dose: 1,000 mg Documented by: Bisacodyl (Bisacodyl 10 Mg Suppository) 10 mg RC UD PRN PRN Reason: If no BM Dibucaine (Dibucaine 30 Gm Tube) 1 applic TOPICAL TID PRN PRN; Protocol PRN Reason: Discomfort Hydrocortisone (Hydrocortisone 2.5% Crm) 1 applic TOPICAL TID PRN PRN; Protocol PRN Reason: Discomfort Ibuprofen (Ibuprofen 600 Mg Tablet) 600 mg PO Q6H PRN PRN PRN Reason: Pain Score 1-3 Last Admin: 05/17/20 21:45 Dose: 600 mg Documented by: Methylergonovine Maleate (Methylergonovine 0.2 Mg/Ml Ampul) 0.2 mg IM X1 PRN PRN Reason: Excess bleeding/uterine atony Last Admin: 05/17/20 20:55 Dose: 0.2 mg Documented by: Ondansetron HCl (Ondansetron 4 Mg/2 Ml Vial) 4 mg IV Q4H PRN PRN PRN Reason: Nausea Oxycodone HCl (Oxycodone 5 Mg Tablet) 5 - 10 mg PO Q4H PRN PRN PRN Reason: Pain Score 4-10 Senna/Docusate Sodium (Senna/Docusate Sodium 1 Tablet) 1 - 2 tablet PO DAILY PRN PRN PRN Reason: Constipation Simethicone (Simethicone 80 Mg Tablet) 80 mg PO PCHS PRN PRN Reason: Indigestion/Stomach pain Sodium Chloride (0.9% Saline Lock 10 Ml Syringe) 5 - 15 ml IV UD PRN PRN Reason: SALINE FLUSH Last Admin: 05/17/20 23:20 Dose: 10 ml Documented by: Zolpidem Tartrate (Zolpidem Tartrate 5 Mg Tablet) 5 mg PO QHS PRN PRN PRN Reason: Insomnia Medical Necessity - Tobacco Use Smoking Status: Never smoker Assessment/Plan All Active Problems Vacuum extraction, delivered, current hospitalization (Acute) 39 weeks gestation of (Acute) Doing well day #2 status post routine spontaneous vaginal delivery. Home-going instructions given in case the patient decides to go home later today.
[2020-05-18 11:45] VITALS: BP 102/52; PULSE 102; RESP 18; TEMP 36.3; O2SAT 98
[2020-05-18 16:00] VITALS: BP 109/71; PULSE 88; RESP 16; TEMP 36.3; O2SAT 99
[2020-05-18 21:01] VITALS: BP 109/67; PULSE 98; RESP 16; TEMP 36.6
[2020-05-19 02:39] VITALS: BP 111/71; PULSE 83; RESP 16; TEMP 37
[2020-05-19 08:00] VITALS: BP 115/71; PULSE 87; RESP 16; TEMP 36.2; O2SAT 97
--- NOTE | 2020-05-19 08:42 | PCM.PN.OB ---
Subjective: No overnight complaints. - Physical Exam Vitals/I&O's: Vital Signs Temp Pulse Resp BP Pulse Ox 97.2 F L 87 16 115/71 97 05/19/20 08:00 05/19/20 08:00 05/19/20 08:00 05/19/20 08:00 05/19/20 08:00 Oxygen Delivery Method Room Air Weight: 192 lb 10.944 oz Body Mass Index (BMI) 34.1 Intake and Output for Last 24 Hours 05/17/20 05/18/20 05/19/20 23:59 23:59 23:59 Intake Total 1398.23 / 1398.23 Output Total 550 / 550 200 / 200 Balance 848.23 / 848.23 -200 / -200 General: Alert, Oriented x3, Cooperative, No apparent distress HEENT: Atraumatic, Normocephalic Oral: Moist Mucosa Neck: Supple Abdomen: Soft, Non Tender, - - Uterus firm and below umbilicus Extremities: No clubbing, No cyanosis, No edema Neurological: Neuro grossly intact Psych/Mental Status: Normal Affect, Appropriate, Alert and oriented to time, place, person, mood and affect Microbiology Past 72 Hours 05/17/20 15:59 Mucosa - Nose SARS-CoV-2 Antigen (Rapid) - Final Current Medications Acetaminophen (Acetaminophen 500 Mg Tablet) 1,000 mg PO Q8H PRN PRN PRN Reason: Pain Score 1-3 Last Admin: 05/18/20 21:09 Dose: 1,000 mg Documented by: Bisacodyl (Bisacodyl 10 Mg Suppository) 10 mg RC UD PRN PRN Reason: If no BM Dibucaine (Dibucaine 30 Gm Tube) 1 applic TOPICAL TID PRN PRN; Protocol PRN Reason: Discomfort Hydrocortisone (Hydrocortisone 2.5% Crm) 1 applic TOPICAL TID PRN PRN; Protocol PRN Reason: Discomfort Ibuprofen (Ibuprofen 600 Mg Tablet) 600 mg PO Q6H PRN PRN PRN Reason: Pain Score 1-3 Last Admin: 05/17/20 21:45 Dose: 600 mg Documented by: Methylergonovine Maleate (Methylergonovine 0.2 Mg/Ml Ampul) 0.2 mg IM X1 PRN PRN Reason: Excess bleeding/uterine atony Last Admin: 05/17/20 20:55 Dose: 0.2 mg Documented by: Ondansetron HCl (Ondansetron 4 Mg/2 Ml Vial) 4 mg IV Q4H PRN PRN PRN Reason: Nausea Oxycodone HCl (Oxycodone 5 Mg Tablet) 5 - 10 mg PO Q4H PRN PRN PRN Reason: Pain Score 4-10 Senna/Docusate Sodium (Senna/Docusate Sodium 1 Tablet) 1 - 2 tablet PO DAILY PRN PRN PRN Reason: Constipation Simethicone (Simethicone 80 Mg Tablet) 80 mg PO PCHS PRN PRN Reason: Indigestion/Stomach pain Sodium Chloride (0.9% Saline Lock 10 Ml Syringe) 5 - 15 ml IV UD PRN PRN Reason: SALINE FLUSH Last Admin: 05/17/20 23:20 Dose: 10 ml Documented by: Zolpidem Tartrate (Zolpidem Tartrate 5 Mg Tablet) 5 mg PO QHS PRN PRN PRN Reason: Insomnia Medical Necessity - Tobacco Use Smoking Status: Never smoker Assessment/Plan All Active Problems Vacuum extraction, delivered, current hospitalization (Acute) 39 weeks gestation of (Acute) day 2. Pain well controlled. Minimal lochia. Okay to discharge home today if okay with community development planner
== END 2020-05-19 11:10 | disposition home or self-care (01) | DRG 807 ==
LOC: WPOUT 14:52 → WP 20:51
PROVIDERS: Admitting Provider Obstetrics & Gynecology; PCP Family Medicine; Referring Provider Obstetrics & Gynecology; Visit Provider Obstetrics & Gynecology
DX: O70.1 Second degree perineal laceration during delivery (principal); Z37.0 Single live birth; Z3A.40 40 weeks gestation of pregnancy; Z87.440 Personal history of urinary (tract) infections
CPT/HCPCS: 59025; 59050; 85025; 86850; 86900; 86901; 87426; 99218; J7120; A4216; G0378

== ENCOUNTER → 2021-08-20 | Outpatient (CLI) | payer OTHER, SELFPAY ==
[2021-08-20 11:32] LABS: Hemoglobin A1c 5.3 % (3.8-5.6)
[2021-08-20 11:54] LABS: ALB/GLOB Ratio 1.1 RATIO (0.9-2.4); AST(SGOT) 13 U/L (15-37); Alanine Aminotransfer ALT/SGPT 28 U/L (13-56); Albumin, Serum 3.7 g/dL (3.2-5.0); Alkaline Phosphatase 26 U/L (45-117); Anion Gap 7 (5-15); BUN 16 mg/dL (7-18); BUN/Creat Ratio 23.9 RATIO (10-20); Calcium,Total 8.8 mg/dL (8.5-10.1); Chloride 105 mmol/L (98-107); Creatinine, Serum 0.67 mg/dL (0.55-1.02); EST Glomerular Filtration Rate 111 mL/min (>60); Est Glom Filt Rate - Afr Amer 134 mL/min (>60); Estradiol 113.5 pg/mL; Globulin 3.5 g/dL (2.2-4.2); Glucose 97 mg/dL (74-106); Potassium 3.8 mmol/L (3.5-5.1); Protein, Total 7.2 g/dL (6.4-8.2); Sodium Level 137 mmol/L (136-145); T4 Free Direct 0.83 ng/dL (0.76-1.46); Thyroid Stim Hormone (TSH) 3.32 uIU/mL (0.358-3.74)
[2021-08-20 11:59] LABS: Vitamin D,25 Hydroxy 30.8 ng/mL
[2021-08-21 07:55] LABS: Sex Hormone-binding Globulin 24.6 nmol/L (24.6-122.0)
[2021-08-25 15:35] LABS: Anti-Thyroglobulin AB < 1.0 IU/mL (0.0-0.9); Thyroglobulin, Serum Qt. 6.3 ng/mL (1.5-38.5)
== END | disposition home or self-care (01) ==
PROVIDERS: PCP Family Medicine; Visit Provider Obstetrics & Gynecology
DX: E03.9 Hypothyroidism, unspecified (principal); R63.5 Abnormal weight gain; L65.8 Other specified nonscarring hair loss; K75.81 Nonalcoholic steatohepatitis (NASH); R10.811 Right upper quadrant abdominal tenderness
CPT/HCPCS: 36415; 80053; 82306; 82627; 82670; 83036; 83525; 84144; 84270; 84432; 84439; 84443; 84481; 86800; 82626

== ENCOUNTER 2024-07-05 07:00 | Inpatient (IN) | payer SELFPAY, OTHER ==
[2024-07-05] VITALS (40 sets, daily range): BP systolic 105–137; BP diastolic 56–87; PULSE 73–100; RESP 16; TEMP 36.1–37.1; O2SAT 92–99; BMI 35.3
[2024-07-05] MEDS: Lactated Ringers 1,000 ML 50 ML IV (08:30)
[2024-07-05] MEDS: Oxytocin 15 Units/NS 250ml 15 UNITS/250 ML IV.SOLN 2 UNITS IV (08:45)
[2024-07-05 08:48] LABS: Absolute Lymphocyte Count 2.07 X10^3/uL (0.83-4.51); Absolute Neutrophil Count 4.5 X10^3/uL (2.0-7.7); Basophil# 0.03 X10^3/uL; Basophil% 0.4 % (0-1); Eosinophil# 0.07 X10^3/uL; Hematocrit 35.7 % (37-47); Hemoglobin 11.9 g/dL (12.0-15.0); Lymphocyte # 2.07 X10^3/ul (0.83-4.51); Lymphocyte % 29.4 % (19-41); Mean Corp Hgb Conc 33.3 g/dL (32-36); Mean Corpuscular Hgb 29.3 pg (27.0-32.0); Mean Corpuscular Volume 87.9 fL (81-99); Mean Platelet Vol. 10.2 fl (6.2-12.0); Monocyte# 0.37 X10^3/uL; Monocyte% 5.3 % (0-10); NRBC Flagged by Analyzer 0 % (0-5); Neutrophil # 4.45 X10^3/uL (2.7-7.7); Neutrophil % 63.2 % (47-70); Platelet Count 174 K/mm3 (150-450); RBC Distribution Width CV 15.6 % (11.6-14.6); RBC Distribution Width SD 50.3 fl (35.1-43.9); Red Blood Count 4.06 M/mm3 (4.2-5.4)
[2024-07-05 09:56] LABS: AST(SGOT) 13 U/L (<=31); Alanine Aminotransfer ALT/SGPT 10 U/L (<=34); Creatinine, Serum 0.46 mg/dL (0.70-1.20); EST Glomerular Filtration Rate 131 (>60); Estimated Creatinine Clearance 196.21 ml/min (50-250); Uric Acid 5.3 mg/dL (2.6-6.0)
[2024-07-05 09:58] LABS: Syphilis Antibodies Nonreactive (Nonreactive)
[2024-07-05 10:08] LABS: Protein, Urine (Random) 8.2 mg/dL (0.0-12.0); Protein:Creat Ratio 239 mg/g CRE (0-200)
[2024-07-05] MEDS: Lactated Ringers 1,000 ML 999 ML IV (10:41)
[2024-07-05] MEDS: fentaNYL-bupivacaine (epidural) 100 ML BAG EPIDURAL (11:45)
--- NOTE | 2024-07-05 12:31 | HP.PCM.OB_ITS ---
HPI - General General Date of Admission: 07/05/24 Date of Service: 07/05/24 Chief Complaint: IOL HPI Narrative ZAN SANTOS, is a 33 F who presents for scheduled IOL. Offers no complaints. [facility] Medical History (Updated 07/05/24 @ 12:[address] Karla Howard, DO) Superficial varicosities Headache Home Medications ?Medication ?Instructions ?Recorded ?Last Taken ?Type vit 122-ferrous fumarate 1 tab PO DAILY pregn glen 12/05/16 07/04/24 History 27 mg iron-folic acid 800 mcg tablet ( Multi) ferrous gluconate 324 mg (37.5 mg 325 mg (1.0031 x 324 mg (37.5 mg 12/07/16 07/04/24 Rx iron) tablet iron)) PO BIDCM anemia #60 T ABLETS calcium 500 mg 1 each PO DAILY cramps and s leep 05/14/20 07/04/24 History (carb,gluconate)-magnesium 250 mg (gluc,oxide) tablet Allergy/AdvReac Type Severity Reaction Status Date / Time No Known Allergies Allergy Verified 07/05/24 07:33 Social History Smoking Status: Never smoker History Elective abortions Hx Para 2 Spontaneous abortions Hx # Term Pregnancies Ectopic pregnancies Hx # Pregnancies Multiple births # of living children NST FHR Rate Baby A FHR Category:: Category I Vital Signs Vital Signs Vital Signs: 07/05/24 07:18 07/05/24 07:18 07/05/24 07:19 Temperature Temperature Source Pulse Rate 89 Respiratory Rate Blood Pressure 133/87 H BP Systolic 133 BP Diastolic 87 Pulse Ox 97 07/05/24 07:19 07/05/24 08:57 07/05/24 08:57 Temperature Temperature Source Pulse Rate 93 89 Respiratory Rate Blood Pressure 115/65 BP Systolic 115 BP Diastolic 65 Pulse Ox 07/05/24 08:57 07/05/24 08:57 07/05/24 09:03 Temperature Temperature Source Temporal Pulse Rate 88 Respiratory Rate Blood Pressure BP Systolic BP Diastolic Pulse Ox 92 07/05/24 09:03 07/05/24 09:03 07/05/24 09:03 Temperature 97.9 F Temperature Source Pulse Rate Respiratory Rate 16 Blood Pressure BP Systolic BP Diastolic Pulse Ox 97 07/05/24 10:19 07/05/24 10:19 07/05/24 10:19 Temperature Temperature Source Temporal Pulse Rate 83 Respiratory Rate Blood Pressure 119/73 BP Systolic 119 BP Diastolic 73 Pulse Ox 07/05/24 10:19 07/05/24 10:19 07/05/24 10:19 Temperature 98.0 F Temperature Source Pulse Rate Respiratory Rate 16 Blood Pressure BP Systolic BP Diastolic Pulse Ox 98 07/05/24 11:32 07/05/24 11:32 07/05/24 11:37 Temperature Temperature Source Pulse Rate 80 74 Respiratory Rate Blood Pressure BP Systolic BP Diastolic Pulse Ox 99 07/05/24 11:37 07/05/24 11:38 07/05/24 11:38 Temperature Temperature Source Pulse Rate 75 Respiratory Rate Blood Pressure 131/78 H BP Systolic 131 BP Diastolic 78 Pulse Ox 99 07/05/24 11:41 07/05/24 11:41 07/05/24 11:41 Temperature Temperature Source Pulse Rate 80 Respiratory Rate 16 Blood Pressure 130/77 H BP Systolic 130 BP Diastolic 77 Pulse Ox 07/05/24 11:42 07/05/24 11:42 07/05/24 11:44 Temperature Temperature Source Pulse Rate 86 Respiratory Rate Blood Pressure BP Systolic BP Diastolic Pulse Ox 98 94 07/05/24 11:46 07/05/24 11:47 07/05/24 11:47 Temperature Temperature Source Pulse Rate 82 Respiratory Rate 16 Blood Pressure 127/76 H BP Systolic 127 BP Diastolic 76 Pulse Ox 07/05/24 11:47 07/05/24 11:47 07/05/24 11:47 Temperature Temperature Source Pulse Rate 82 Respiratory Rate Blood Pressure 124/71 H BP Systolic 124 BP Diastolic 71 Pulse Ox 97 07/05/24 11:51 07/05/24 11:51 07/05/24 11:51 Temperature Temperature Source Pulse Rate 95 Respiratory Rate 16 Blood Pressure 130/74 H BP Systolic 130 BP Diastolic 74 Pulse Ox 07/05/24 11:52 07/05/24 11:52 07/05/24 11:56 Temperature Temperature Source Temporal Pulse Rate 90 Respiratory Rate Blood Pressure BP Systolic BP Diastolic Pulse Ox 98 07/05/24 11:56 07/05/24 11:56 07/05/24 11:57 Temperature 97.8 F Temperature Source Pulse Rate 88 Respiratory Rate 16 Blood Pressure BP Systolic BP Diastolic Pulse Ox 07/05/24 11:57 07/05/24 11:57 07/05/24 11:57 Temperature Temperature Source Pulse Rate 83 Respiratory Rate Blood Pressure 118/56 L BP Systolic 118 BP Diastolic 56 Pulse Ox 97 07/05/24 12:02 07/05/24 12:02 07/05/24 12:02 Temperature Temperature Source Pulse Rate 85 Respiratory Rate Blood Pressure 111/59 L BP Systolic 111 BP Diastolic 59 Pulse Ox 96 07/05/24 12:02 07/05/24 12:02 07/05/24 12:02 Temperature Temperature Source Pulse Rate 86 Respiratory Rate 16 Blood Pressure BP Systolic BP Diastolic Pulse Ox 97 07/05/24 12:07 07/05/24 12:07 07/05/24 12:07 Temperature Temperature Source Pulse Rate 92 Respiratory Rate 16 Blood Pressure 105/57 L BP Systolic 105 BP Diastolic 57 Pulse Ox 07/05/24 12:07 07/05/24 12:12 07/05/24 12:12 Temperature Temperature Source Pulse Rate 96 Respiratory Rate Blood Pressure 109/67 BP Systolic 109 BP Diastolic 67 Pulse Ox 98 07/05/24 12:12 07/05/24 12:17 07/05/24 12:17 Temperature Temperature Source Pulse Rate 82 Respiratory Rate Blood Pressure BP Systolic BP Diastolic Pulse Ox 97 93 Weight Weight: 205 lb 11.06 oz Body Mass Index (BMI) 35.3 Physical Exam Const alert and no apparent distress General Appearance: comfortable Narrative: Cvx /-1, vertex Labs Labs Labs: Blood Type A POSITIVE Antibody Screen NEGATIVE Hct 35.7 % (37-47) L Hgb 11.9 g/dL (12.0-15.0) L Syphilis Total Ab Nonreactive (Nonreactive) Rubella IgG Antibody > 500.0 IU/mL Hep Bs Antigen Non-Reactive (Nonreactive) Hepatitis C Antibody Non-Reactive (Nonreactive) Hepatitis C Ab (EIA) <0.1 s/co ratio (0.0-0.9) Chlamydia DNA (KEIKO) Negative (Negative) N.gonorrhoeae DNA (KEIKO) Negative (Negative) HIV 1&2 Antibody Non-Reactive (Nonreactive) Glucose 1 Hr 50 gm 169 mg/dL (70-140) H Gest Glucose Tolerance MG/DL Group B Strep DNA Negative (Negative) Rhogam given: No Assessment & Plan (1) 40 weeks gestation of : PLAN: Discussed r/b/a elective IOL and patient desires to proceed. Cvx 3/50/-1, vertex and head well applied. AROM performed for clear fluid. Pitocin per protocol. GBS negative. Pelvis adequate and EFW < 3500 grams. Amticipate vaginal delivery. (2) Elective induction of labor planned:
--- NOTE | 2024-07-05 16:17 | EX.PCM.OBVAG ---
Assessment & Plan (1) 40 weeks gestation of : (2) Elective induction of labor planned: (3) Vaginal delivery: (4) Second degree perineal laceration: Vaginal Delivery Maternal Presentation Maternal Presentation: Elective Induction Type of Induction: Pitocin and Amniotomy Vaginal Delivery Information Procedure Performed: Spontaneous Vaginal Delivery Surgeon/Practitioner: Karla Howard Date of Procedure: 07/05/24 Pre-Procedure Diagnosis: 40 week gestation, elective IOL Post-Procedure Diagnosis: As above Type of anesthesia: Epidural Special Medications: None Estimated Blood Loss: 250 mL Fluids Replaced: N/A Findings Description of procedure: The patient was complete and pushing. The head of the infant delivered in FAN position. A tight nuchal cord x 1 was noted around the neck without compression. The anterior shoulder was delivered through the nuchal cord, followed by the posterior shoulder and body without any traction, force, delay. A vigorous viable male was placed on maternal abdomen. The cord was clamped and cut after a 60 second delay by the father of the baby. Placenta was delivered spontaneously and noted to be normal-appearing and intact with a three-vessel cord. 3-0 Vicryl was used to repair second-degree perineal laceration in usual fashion. Fundus firm and bleeding scant. A vaginal sweep was performed. Sharp and sponge counts were correct. Procedure findings: Vigorous VMI Apgars 8, 9. Normal appearing placenta with 3 VC Presentation: Vertex Amniotic Membrane Rupture Type: Artificial Amniotic Fluid Description: Clear Placental Delivery Description: Spontaneous Cord Vessel Description: 3 Vessels Cord Entanglement: Around neck x 1, tight Nuchal Cord Compression: Without compression Infant A Gender: Male (1 minute): 8 (5 minute): 9 Delayed Cord Clamping: Yes Machine Design Checker tray service worker: No Post Vaginal Deli Medications given after delivery: IV Pitocin Episiotomy Description: None Laceration: 2nd degree Complication Complications: No
[2024-07-05] MEDS: Oxytocin 15 Units/NS 250ml 15 UNITS/250 ML IV.SOLN 83 UNITS IV (16:25)
[2024-07-05] MEDS: 0.9% Saline Lock 10 ML Syringe IV (19:45)
[2024-07-05] MEDS: Ibuprofen 600 MG Tablet PO (23:19)
[2024-07-06 04:45] VITALS: BP 107/67; PULSE 90; RESP 16; TEMP 36.4; O2SAT 98
[2024-07-06 07:28] VITALS: BP 127/83; PULSE 91; RESP 16; O2SAT 97
[2024-07-06] MEDS: Benzocaine/Lanolin/Aloe Vera 85 GM Spray 1 SPRAY TOPICAL (07:48)
[2024-07-06] MEDS: Ibuprofen 600 MG Tablet PO (07:48)
--- NOTE | 2024-07-06 08:49 | PN.OBGYN_ITS ---
Subjective Subjective Denies complaints Objective Data Objective Data Vital Signs: Vital Signs Temp Pulse Resp BP Pulse Ox O2 Del Method 97.6 F L 91 16 127/83 H 97 Room Air 07/06/24 04:45 07/06/24 07:28 07/06/24 07:28 07/06/24 07:28 07/06/24 07:28 07/06/24 07:28 Oxygen Delivery Method Room Air Weight: 205 lb 11.06 oz Body Mass Index (BMI) 35.3 Intake & Output: Intake and Output for Last 24 Hours 07/04/24 07/05/24 07/06/24 23:59 23:59 23:59 Intake Total 2596.71 / 2596.71 Output Total 1050 / 1050 400 / 400 Balance 1546.71 / 1546.71 -400 / -400 Lab / Micro Data 07/05/24 08:30 07/05/24 08:30 Labs: Laboratory Results - last 24 hr 07/05/24 08:30: Creatinine 0.46 L, Estim Creat Clear Calc 196.21, Est GFR (MDRD) Non-Af 131, Uric Acid 5.3, AST 13, ALT 10, Syphilis Total Ab Nonreactive, Blood Type A POSITIVE, Antibody Screen NEGATIVE 07/05/24 09:30: U Random Total Protein 8.2, Urine Creatinine 34.40, P rotein/Creatinin Ratio 239 H Physical Exam Const alert, oriented x3 and no apparent distress HEENT normocephalic GI soft to palpation, non-tender and non-distended GI Narrative: fundus firm, mid & below umbilicus Extremity normal to inspection and no calf tenderness Assessment & Plan (1) Vaginal delivery: COMMENT: PPD#1 PLAN: Plan D/c home per patient request
--- NOTE | 2024-07-06 08:51 | PCM.DC.SUM ---
Providers Date of Admission: 07/05/24 Primary Care Physician: Dr. Mu Mei MD Reason For Visit: VAGINAL DELIVERY Diagnosis Discharge Diagnosis (1) Vaginal delivery: Status: Acute Code(s): O80 - Encounter for full-term uncomplicated delivery Plan D/c home per patient request Medications at Discharge Home Medications vit 122-ferrous fumarate 27 mg iron-folic acid 800 mcg tablet ( Multi) 1 tab PO DAILY 12/05/16 calcium 500 mg (carb,gluconate)-magnesium 250 mg (gluc,oxide) tablet 1 each PO DAILY cramps and sleep 05/14/20 acetaminophen 500 mg tablet 1,000 mg (2 x 500 mg) PO Q6H PRN PRN Pain 1-10 Or Fever #0 tabs 07/06/24 ibuprofen 600 mg tablet 600 mg PO Q6H PRN PRN Pain Score 1-10 #0 tabs 07/06/24 Hospital Course Operations None Procedures None Summary of Care Provided Minutes Spent on Discharge: 15 Weight / BMI Weight Weight: 205 lb 11.06 oz Body Mass Index (BMI) 35.3 ABG / Lab / Microbiology Data 07/05/24 08:30 07/05/24 08:30 Laboratory: Laboratory Results - last 24 hr 07/05/24 08:30: Creatinine 0.46 L, Estim Creat Clear Calc 196.21, Est GFR (MDRD) Non-Af 131, Uric Acid 5.3, AST 13, ALT 10, Syphilis Total Ab Nonreactive, Blood Type A POSITIVE, Antibody Screen NEGATIVE 07/05/24 09:30: U Random Total Protein 8.2, Urine Creatinine 34.40, Protein/Creatinin Ratio 239 H D/C Instructions Discharge Diet: No restrictions Discharge Activity: May Shower May resume sexual activity in: 6 weeks Weight Bearing Status: Weight bearing as tolerated Call your doctor if you observe: Fever of 101 or Higher, Coldness, Increased Pain, Change in Color, Inability to urinate, Inability to have a bowel movement, Using more than 1 pad per hour, Shortness of breath, Dizziness, Fainting spells, Chest pain, Increased palpitations (irregular heartbeat), Calf discomfort and Uncontrolled pain DC O2, CPAP, BIPAP Needs Home O2 Discharge instructions: No Please Follow Up With: Karla Howard DO When: Follow up in 2 and 6 weeks for visits. Meaningful Use Info Meaningful Use Meaningful Use Diagnoses (Choose all that apply): None applicable Ischemic Stroke Statin Dosing Therapy Reference: STATIN DOSE THERAPY REFERENCE: * Patients > 75 years receive moderate or high dose statin therapy. * Patients 75 years or YOUNGER should receive HIGH intensity statin dose unless contraindicated. You will be required to document reason for non-treatment if statin daily dose does not meet guidelines. HIGH DOSE STATIN THERAPY DAILY Atorvastatin > than or = to 40 mg Rosuvastatin > than or = to 20 mg Amlodipine + Atorvastatin > than or = to 2.5/40 mg Ezetimibe + Simvastatin 10/80 mg Simvastatin 80mg Discharge Plan Admission Admit Date/Time: 07/05/24 07:00 Primary Reason for Your Visit: vaginal delivery Attending Provider: Karla Howard Primary Care Provider: Mu Mei Discharge Orders/Prescriptions Prescriptions: New acetaminophen 500 mg Tablet 1,000 mg PO Q6H PRN PRN (Reason: Pain 1-10 Or Fever) Qty: 0 0RF ibuprofen 600 mg Tablet 600 mg PO Q6H PRN PRN (Reason: Pain Score 1-10) Qty: 0 0RF Continued Multi 1 EACH tablet 1 tab PO DAILY calcium carb,gluc-mag gluc,ox 1 EACH tablet 1 each PO DAILY Discontinued ferrous gluconate 325 MG tablet 325 mg PO BIDCM Qty: 60 1RF Referrals / Follow Up: Mu Mei MD [Primary Care Provider] - Disposition Disposition (needs filled in before D/C Order can be placed): Home, Self Care
[2024-07-06 12:08] VITALS: BP 119/81; PULSE 89; RESP 16; O2SAT 98
== END 2024-07-06 17:00 | disposition home or self-care (01) | DRG 807 ==
PROVIDERS: Obstetrics & Gynecology; Admitting Provider Obstetrics & Gynecology; PCP Family Medicine; Referring Provider Obstetrics & Gynecology; Visit Provider Obstetrics & Gynecology
DX: O69.81X0 Labor and delivery complicated by cord around neck, without compression, not applicable or unspecified (principal); Z37.0 Single live birth; O70.1 Second degree perineal laceration during delivery; Z3A.40 40 weeks gestation of pregnancy
CPT/HCPCS: 59025; 59050; 82565; 82570; 84156; 84450; 84460; 84550; 85025; 86780; 86850; 86900; 86901; 99221; A4216; G0378

== ENCOUNTER 2024-08-26 05:55 | Day surgery (SDC) | payer SELFPAY, OTHER ==
[2024-08-26] VITALS (9 sets, daily range): BP systolic 107–131; BP diastolic 73–93; PULSE 70–78; RESP 16; TEMP 36.2–36.4; O2SAT 95–99; BMI 32.8
--- OUTSIDE RECORDS SUMMARY | 2024-08-26 06:08 | XMS RPT_ITS | CCD ---
Author Organization [facility] Care Team Providers Care [employer] Worker Name Role Phone MU FITZGERALD Admitting Unavailable MU FITZGERALD Attending Unavailable MU FITZGERALD Primary Care Unavailable [facility] Attending Unavailable [facility] Primary Care Unavailable [facility] Admitting Unavailable Lia MEDINA, Mu Uribe Primary Care Provider Tea MEDINA, Froilan Haque Unavailable [phone] Alma MEDINA, Nilsa Christian Unavailable Mu Fitzgerald MD Unavailable Nanette LOCKHART, Mimi Peralta Unavailable Varun MARTE, Zulma Unavailable Unavailable Mutersbaperry TAYLORN, Rachel K Unavailable Unavai alexei Mcgrath PA-C, Ilsa Perez Unavailable Javier LOCKHART, Verena Perez Unavailable Tierney Jason MA Unavailable Unavailable Unavailable Unavailable Dr. Mu Fitzgerald MD Primary Care Provider Dr. Amelia Howard DO Admit Provider Dr. Amelia Howard DO Attending Provider Dr. Amelia Howard DO Referring Provider MU FITZGERALD Primary Care Unavailable JEANNA FERRERA Attending Unavailable MU FITZGERALD Primary Care Unavailable SARKIS WEBBER Referring Unavailable MU FITZGERALD Primary Care Unavailable VERENA GARCIA Attending Unavailable MU FITZGERALD Primary Care Unavailable SHIV MCKEON Attending Unavailable MU FITZGERALD Primary Care Unavailable SARKIS WEBBER Attending Unavailable MU FITZGERALD Primary Care Unavailable SHIV MCKEON Attending Unavailable SARA BLANKENSHIP Referring Unavail able MU FITZGERALD Primary Care Unavailable [facility] Primary Care Unavailable HAURY, SARKIS Referring Unavailable [facility] Primary Care Unavailable SARA BLANKENSHIP Attending Unavail able [facility] Primary Care Unavailable HAURY, SARKIS Referring Unavailable WISWELL, AMELIA Attending Unavailable [facility] Primary Care Unavailable MIKE, SHIV Attending Unavailable [facility] Primary Care Unavailable MIKE, KARMON Attending Unavailable [facility] Primary Care Unavailable WISWELL, AMELIA Attending Unavailable [facility] Primary Care Unavailable WISWELL, AMELIA Attending Unavailable [facility] Primary Care Unavailable [facility] Primary Care Unavailable WISWELL, AMELIA Attending Unavailable [facility] Primary Care Unavailable SELF Referring Unavailable HAURY, SARKIS Attending Unavailable [facility] Primary Care Unavailable WISWELL, AMELIA Attending Unavailable [facility] Primary Care Unavailable ALEXANDRA HARO Attending Unavailable [facility] Primary Care Unavailable WISWELL, AMELIA Attending Unavailable [facility] Primary Care Unavailable VERENA GARCIA Referring Unavailable Wiswell, Amelia Admitting Unavailable [facility] [place] Primary Care Unavailable Wiswell, Amelia Referring Unavailable Wiswell, Amelia Attending Unavailable Wiswell, Amelia Attending Unavailable [facility] Care Unavailable Wiswell, Amelia Referring Unavailable Medications Current Medications Medication Drug Class(es) Dates Sig (Normalized) Sig (Original) acetaminophen 500 mg oral tablet (1 source) Start: 07-06-2024 take 1-10 tablets by mouth every six hours as needed for pain Acetaminophen 500 mg Tablet Active 1000 mg PO EVERY 6 HOURS NEEDED as needed for Pain 1-10 Or Fever 0 July 06, 2024 12:00am Azithromycin (20 sources) Macrolide Antimicrobial Start: 05-13-2024 Zithromax Z-Suman 250 mg tablet ; 2 (two) Tabs day one, then one daily for 4 days for 5 days Quantity: 6 {Packet} Refills: 0 Ordered: 13-May-2024 MD Mu Fitzgerald Start: 13-May-2024 Start: 03-08-2024 End: 05-13-2024 Zithromax Z-Suman 250 mg table t ; 2 (two) Tabs day one, then one daily for 4 days for 0 days Quantity: 1 {Packet} Refills: 0 Ordered: 13-May-2024 ROSANNA Bond Start: 08-Mar-2024 End: 13-May-2024 Status: Inactive Start: 03-08-2024 Zithromax Z-Pa k 250 mg tablet ; 2 (two) Tabs day one, then one daily for 4 days for 0 days Quantity: 1 {Packet} Refills: 0 Ordered: 08-Mar-2024 CHANTELLE Herrera Start: 08-Mar-2024 Start: 08-01-2017 End: 12-25-2022 Zithromax Z-Suman 250 mg table t ; 2 (two) Tablet today and then 1 tablet daily x 4 days for 0 days Quantity: 1 {Package} Refills: 0 Ordered: 25-Dec-2022 ROSANNA Bond Zulma Start: 01-Aug-2017 End: 25-Dec-2022 Status: Inactive Ca Carb-Ca Gluc-Mg Ox-Mg Gluco (1 source) Start: 05-14-2020 take 1 mg by mouth once daily Ca Carb-Ca Gluc-Mg Ox-Mg Gluco Active 1 EACH PO DAILY May 14, 2020 12:00am Calcium Carb,Gluc-Mag Gluc,Ox 1 EACH tablet (1 source) Start: 05-14-2020 take 1 tablet by mouth once daily Calcium Carb,Gluc-Mag Gluc,Ox 1 EACH tablet Active 1 NMA PO DAILY May 14, 2020 12:00am ibuprofen 600 mg oral tablet (3 sources) Nonsteroidal Anti-inflammatory Drug Start: 07-06-2024 take 1 tablet by mouth every six hours as needed for pain Ibuprofen 600 mg Tablet Active 600 mg PO EVERY 6 HOURS NEEDED as needed for Pain Score 1-10 0 July 06, 2024 12:00am Start: 12-06-2016 End: 07-05-2024 take 1 tablet by mouth three times daily as needed for pain Ibuprofen (Motrin) 800 MG tablet Discontinued 800 mg PO 3 TIMES DAILY NEEDED as needed for Pain December 06, 2016 12:00am July 05, 2024 7:35am Hd426-Lyqo-Rpiow Acid ( Multi Tablet) 1 EACH tablet (1 source) Start: 12-05-2016 take 1 tablet by mouth once daily Xv841-Nben-Oryjm Acid ( Multi Tablet) 1 EACH tablet Active 1 TABLET PO DAILY December 05, 2016 12:00am Bt528-Mvkp-Ueqlf Acid ( Multi) 1 EACH tablet (1 source) Start: 12-05-2016 take 1 tablet by mouth once daily Xe561-Gyjy-Oosyc Acid ( Multi) 1 EACH tablet Active 1 {tbl} PO DAILY December 05, 2016 12:00am vits62/FA/om3/dha/epa ( GUMMY ORAL) (20 sources) vits62/FA/om3/dha/epa ( GUMMY ORAL) Take 2 Pieces by mouth once daily. Active Completed/Discontinued Medications Medication Drug Class(es) Dates Sig (Normalized) Sig (Original) amoxicillin 500 mg oral tablet (13 sources) Penicillin-class Antibacterial Start: 04-13-2012 End: 04-23-2012 take 1 tablet by mouth three times daily AMOXICILLIN, 500MG (Oral Tablet) ; 1 Tab three times daily for 10 days Quantity: 30 {Tab} Refills: 0 Ordered: 13-Apr-2012 CHANTELLE Fitzpatrick Start: 13-Apr-2012 End: 23-Apr-2012 Status: Inactive amoxicillin 875 mg / clavulanate 125 mg oral tablet (9 sources) Penicillin-class Antibacterial Start: 03-01-2024 End: 03-11-2024 amoxicillin 875 mg-potassium clavulanate 125 mg tablet ; 1 (one) tablet two times daily for 10 days Quantity: 20 {Tablet} Refills: 0 Ordered: 01-Mar-2024 CHANTELLE Herrera Start: 01-Mar-2024 End: 11-Mar-2024 Status: Inactive aspirin 81 mg delayed release oral tablet (4 sources) Platelet Aggregation Inhibitor, Nonsteroidal Anti-inflammatory Drug Start: 11-14-2023 End: 01-16-2024 take 1 tablet by mouth once daily aspirin, enteric coated (ECOTRIN LOW STRENGTH) 81 mg EC tablet Indications: Encounter for supervision of other normal in first trimester , 7 weeks gestation of , with uncertain dates in first trimester Take 1 tablet by mouth once daily. 90 tablet 3 11/14/2023 01/16/2024 Discontinued calcium carbonate 1250 mg oral tablet (2 sources) Start: 12-05-2016 End: 07-05-2024 take 1 tablet by mouth once daily Calcium Carbonate 500 MG tablet Discontinued 500 mg PO DAILY December 05, 2016 12:00am July 05, 2024 7:34am docusate sodium 100 mg oral capsule (2 sources) Start: 12-06-2016 End: 07-05-2024 take 1 capsule by mouth twice daily as needed for constipation Docusate Sodium (Colace) 100 MG capsule Discontinued 100 mg PO TWICE DAILY NEEDED as needed for Constipation 60 December 06, 2016 12:00am July 05, 2024 7:35am ferrous gluconate 324 mg oral tablet (2 sources) Start: 12-07-2016 End: 07-06-2024 take 1 tablet by mouth twice daily at mealtime Ferrous Gluconate 325 MG tablet Discontinued 325 mg PO TWICE DAILY WITH MEALS December 07, 2016 12:00am July 06, 2024 8:52am ferrous sulfate 325 mg oral tablet (20 sources) End: 08-16-2024 take 1 tablet by mouth once daily ferrous sulfate (IRON) 325 mg (65 mg iron) tablet Take 325 mg by mouth once daily. 08/16/2024 Discontinued methylPREDNISolone 4 mg oral tablet (13 sources) Corticosteroid Start: 12-19-2011 End: 08-01-2017 Medrol 4 MG Oral Tablet Therapy Pack ; take Tablet as directed for 0 days Quantity: 1 {package(s)} Refills: 0 Ordered: 01-Aug-2017 ROSANNA Glaser Start: 19-Dec-2011 End: 01-Aug-2017 Status: Inactive OTC NUTRITIONAL SUPPLEMENT (20 sources) End: 08-16-2024 take 1 tablet by mouth once daily OTC NUTRITIONAL SUPPLEMENT Take 1 tablet by mouth once daily. Calcium, Magnesium, and Zinc supplement 08/16/2024 Discontinued take 1 tablet by mouth once janine y OTC NUTRITIONAL SUPPLEMENT Take 1 tablet by mouth once daily. Calcium, Magnesium, and Zinc supplement Active Problems Active Problems Problem Classification Problem Date Documented Date Episodic/Chronic Abdominal pain (20 sources) Right upper quadrant pain; Translations: [Right upper quadrant pain] Onset: 01-06-2023 Episodic Allergic reactions (20 sources) Contact dermatitis; Translations: [Unspecified contact dermatitis, unspecified cause] 12-19-2011 Episodic Chronic obstructive pulmonary disease and bronchiectasis (20 sources) Bronchitis; Translations: [Bronchitis, not specified as acute or chronic] 12-25-2022 Episodic Contraceptive and procreative management (17 sources) Sterilization requested; Translations: [Encounter for sterilization] Onset: 04-23-2024 04-23-2024 Episodic Immunizations and screening for infectious disease (6 sources) Patient encounter status; Translations: [Encounter for screening for human papillomavirus (HPV)] 11-14-2023 Episodic OB-related trauma to perineum and vulva (2 sources) Second degree perineal laceration; Translations: [Second degree perineal laceration during delivery] 07-05-2024 Episodic Other complications of ; puerperium affecting management of mother (2 sources) Deliveries by vacuum extractor; Translations: [Complication of labor and delivery, unspecified] 12-06-2016 Episodic Other complications of (20 sources) Maternal obesity complicating , childbirth and the puerperium, antepartum; Translations: [Obesity complicating , first trimester] Onset: 11-14-2023 11-14-2023 Chronic Other complications of (6 sources) Obesity; Translations: [Obesity complicating , unspecified trimester] 02-26-2024 Chronic Other complications of (2 sources) Obesity complicating , second trimester; Translations: [Obesity complicating , childbirth, or the puerperium, antepartum condition or complication] Onset: 02-26-2024 02-26-2024 Chronic Other complications of (6 sources) Anemia in mother complicating , childbirth AND/OR puerperium; Translations: [Anemia complicating , third trimester] 05-06-2024 Chronic Other complications of (1 source) Anemia complicating , third trimester; Translations: [Anemia complicating , third trimester (HCC)] Onset: 06-11-2024 Chronic Other complications of (2 sources) Obesity complicating , unspecified trimester; Translations: [Obesity in , antepartum (HCC)] Onset: 02-26-2024 Chronic Other female genital disorders (1 source) Vaginal odor; Translations: [Other specified noninflammatory disorders of vagina] 03-31-2024 Episodic Other nutritional; endocrine; and metabolic disorders (1 source) Obesity caused by energy imbalance; Translations: [Class 1 obesity due to excess calories with body mass index (BMI) of 33.0 to 33.9 in adult, unspecified whether serious comorbidity present] 02-26-2024 Chronic Other nutritional; endocrine; and metabolic disorders (1 source) Body mass index (BMI) 33.0-33.9, adult; Translations: [Class 1 obesity due to excess calories with body mass index (BMI) of 33.0 to 33.9 in adult, unspecified whether serious comorbidity present] Onset: 02-26-2024 Chronic Other nutritional; endocrine; and metabolic disorders (1 source) Other obesity due to excess calories; Translations: [Class 1 obesity due to excess calories with body mass index (BMI) of 33.0 to 33.9 in adult, unspecified whether serious comorbidity present] Onset: 02-26-2024 Chronic Other nutritional; endocrine; and metabolic disorders (20 sources) Overweight in adulthood with body mass index of 25 or more but less than 30; Translations: [Body mass index (BMI) 27.0-27.9, adult] 12-25-2022 Episodic Other and delivery including normal (20 sources) Normal ; Translations: [Encounter for supervision of other normal , first trimester] Onset: 11-14-2023 11-14-2023 Episodic Comment on above: PPD#1 Other upper respiratory infections (20 sources) Upper respiratory infection; Translations: [Acute upper respiratory infection, unspecified] 03-01-2024 Episodic Residual codes; unclassified (2 sources) Gestation period, 39 weeks; Translations: [39 weeks gestation of ] 12-06-2016 Episodic Residual codes; unclassified (1 source) Gestation period, 7 weeks; Translations: [Less than 8 weeks gestation of ] 11-14-2023 Episodic Residual codes; unclassified (2 sources) Gestation period, 12 weeks; Translations: [12 weeks gestation of ] 12-19-2023 Episodic Residual codes; unclassified (1 source) Gestation period, 16 weeks; Translations: [16 weeks gestation of ] 01-16-2024 Episodic Residual codes; unclassified (2 sources) Gestation period, 21 weeks; Translations: [21 weeks gestation of ] 02-26-2024 Episodic Residual codes; unclassified (2 sources) Gestation period, 26 weeks; Translations: [26 weeks gestation of ] 03-26-2024 Episodic Residual codes; unclassified (1 source) Gestation period, 30 weeks; Translations: [30 weeks gestation of ] 04-23-2024 Episodic Residual codes; unclassified (1 source) Gestation period, 31 weeks; Translations: [31 weeks gestation of ] 05-06-2024 Episodic Residual codes; unclassified (1 source) Gestation period, 33 weeks; Translations: [33 weeks gestation of ] 05-19-2024 Episodic Residual codes; unclassified (1 source) Gestation period, 36 weeks; Translations: [36 weeks gestation of ] 06-04-2024 Episodic Residual codes; unclassified (1 source) Gestation period, 37 weeks; Translations: [37 weeks gestation of ] 06-11-2024 Episodic Residual codes; unclassified (3 sources) Gestation period, 40 weeks; Translations: [40 weeks gestation of ] 07-02-2024 Episodic Residual codes; unclassified (1 source) 40 weeks gestation of ; Translations: [40 weeks gestation of (HCC)] Onset: 07-02-2024 Episodic Residual codes; unclassified (1 source) 38 weeks gestation of ; Translations: [38 weeks gestation of (HCC)] Onset: 06-18-2024 Episodic Residual codes; unclassified (1 source) 37 weeks gestation of ; Translations: [37 weeks gestation of (HCC)] Onset: 06-11-2024 Episodic Unclassified (20 sources) [facility] Education - COMMON Onset: 11-14-2023 11-14-2023 Unclassified (20 sources) Education - [place] Onset: 11-14-2023 11-14-2023 Unclassified (9 sources) Number of Children 03-01-2024 Comment on above: 2. Unclassified (9 sources) Number of Pregnancies 03-01-2024 Comment on above: 3. Unclassified (9 sources) Vaginal deliveries 03-01-2024 Comment on above: 2. Unclassified (2 sources) Planned procedure 07-05-2024 Unclassified (1 source) Early Onset: 07-26-2024 Unclassified (1 source) Class 1 obesity due to excess calories with body mass index (BMI) of 33.0 to 33.9 in adult, unspecified whether serious comorbidity present; Translations: [Class 1 obesity due to excess calories with body mass index (BMI) of 33.0 to 33.9 in adult, unspecified whether serious comorbidity present] Onset: 02-26-2024 Past or Other Problems Problem Classification Problem Date Documented Date Episodic/Chronic Diabetes or abnormal glucose tolerance complicating ; childbirth; or the puerperium (15 sources) Abnormal glucose level; Translations: [Abnormal glucose complicating ] Onset: 04-26-2024 04-26-2024 Episodic Nausea and vomiting (20 sources) Nausea; Translations: [Nausea] Onset: 12-19-2023 12-19-2023 Episodic Other female genital disorders (1 source) Other specified noninflammatory disorders of vagina; Translations: [Vaginal discharge] Onset: 11-14-2023 Episodic Other screening for suspected conditions (not mental disorders or infectious disease) (2 sources) Encounter for screening for diabetes mellitus; Translations: [Encounter for screening for malformations] Onset: 02-26-2024 Episodic Residual codes; unclassified (20 sources) History of headache; Translations: [Personal history of other specified conditions] Onset: 11-14-2023 11-14-2023 Episodic Residual codes; unclassified (1 source) 26 weeks gestation of ; Translations: [26 weeks gestation of ] Onset: 04-23-2024 Episodic Residual codes; unclassified (1 source) 21 weeks gestation of ; Translations: [21 weeks gestation of ] Onset: 02-26-2024 Episodic Residual codes; unclassified (1 source) Less than 8 weeks gestation of ; Translations: [7 weeks gestation of ] Onset: 12-19-2023 Episodic Unclassified (13 sources) Abdominal pain - The onset of the abdominal pain has been gradual and has been occurring in an intermittent pattern for 2 months. The course has been increasing. The pain is described as a mild stabbing. The pain is located in the right upper quadrant and radiates to the left groin and right groin. The symptoms are aggravated by meals (1/2 to 1 hour after eating) (leafy greens and pizza make it worse) but have no relieving factors. The symptoms have been associated with bloating, diarrhea, heartburn, nausea and vomiting. Note for Abdominal pain: pt wonders if this is a hernia . reviewed by [facility] 12-25-2022 Unclassified (13 sources) Cold Symptoms - Symptoms include nasal congestion, runny nose, sore throat, scratchy throat, dry cough, productive cough and fever (low grade), but do not include ear pain, ear fullness or headache. The onset was gradual 1 week(s) ago. The symptoms occur constantly. The patient describes this as moderate in severity and worsening. Current treatment includes NSAIDs. Risk factors do not include child in daycare or smoking. The patient has been exposed to an individual with similar symptoms (daughter), but has not been exposed to an individual with a cough, an individual with an upper respiratory infection, an individual with strep or secondhand smoke. 08-01-2017 Unclassified (13 sources) Rash - The onset of the rash has been sudden and has been occurring in a persistent pattern for 4 days. The rash is characterized as red and raised above the skin. The rash was first seen on the face. There has been associated itching. Note for Rash: She has treated with otc cortisone cream as well as poison jennifer cream. It is mostly on the right side of her face and it is getting near her right eye. No eye drainage, no vision problems; it does hurt to blink. Was deer hunting this past weekend. Did use a spray while in the [place]. 12-19-2011 Unclassified (9 sources) Cold Symptoms - Symptoms include nasal congestion, runny nose, scratchy throat, dry cough, productive cough, general malaise and facial pain, but do not include ear pain, wheezing, fever, chills or headache. The onset was gradual 10 day(s) ago. The symptoms occur constantly. The patient describes this as mild and unchanged. Current treatment includes acetaminophen and home remedies. Risk factors do not include child in daycare or smoking. The patient has been exposed to an individual with similar symptoms (family members). Patient denies history of seasonal allergies, recurrent sinusitis or asthma. Note for Upper respiratory infection: Patient is currently about 5 months 03-01-2024 Unclassified (1 source) Cold Symptoms 05-13-2024 Unclassified (4 sources) Cold Symptoms - Symptoms include scratchy throat, hoarseness, dry cough, productive cough, chills and general malaise. The onset was gradual 3 day(s) ago. The symptoms occur constantly. The patient describes this as moderate in severity and worsening. Current treatment includes cough suppressants (robittusin) and acetaminophen (none yet today). Note for Upper respiratory infection: patient is currently 33 weeks reviewed by [facility] 05-13-2024 Results Test Name Value Interpretation Reference Range Facil ity CNOVon 08-16-2024 CNOV Office Visit (OBGYWM) ---- ZAN SANTOS ([id number]) 1990 F Date Time Provider Department 08/16/24 10:10 AM AMELIA HOWARD OBJACOBOWBertrand During your visit today, we recorded the following information about you: Pulse Respiration Blood pressure Weight 76/minute 14/minute 110/70 86.2 kg Height 1.626 m Amelia Howard MD 08/16/2024 12:41 PM Signed DATE OF SERVICE: August 16, 2024 PROBLEM: request for sterilization PAST SURGICAL HISTORY: PAST SURGICAL HISTORY Procedure Laterality Date NONE PAST MEDICAL HISTORY: PAST MEDICAL HISTORY Diagnosis Date No known health problems SUBJECTIVE: Pt doing well and offers no complaints SOCIAL HISTORY: Social History Tobacco Use Smoking status: Never Smokeless tobacco: Never Vaping Use Vaping status: Never Used Substance Use Topics Alcohol use: Not Currently Drug use: Never Current Outpatient Medications on File Prior to Visit Medication Sig vits62/FA/om3/dha/e pa ( GUMMY ORAL) Take 2 Pieces by mouth once daily. No current facility-administer ed medications on file prior to visit. ALLERGIES No Known Allergies OBJECTIVE: VITALS: BP 110/70 Pulse 76 Resp 14 Ht 162.6 cm (5' 4) Wt 86.2 kg (190 lb) LMP 09/26/2023 (Exact Date) No BMI 32.61 kg/m? HEENT: Normocephalic, atraumatic, Mucus membranes moist without lesions. SKIN: No lesions. CHEST: Clear to auscultation. No wheezes or rales. Good air exchange. HEART: Regular rate and rhythm No S3 or S4. No gallops or rubs. BACK: Nontender. ABDOMEN: Soft, non-tender, non-distended, no masses, no hepatosplenomegaly. LOWER EXTREMITIES: There was no pitting edema, no palpable cords and no skin changes. ASSESSMENT: pre op visit, request for sterilization PLAN: 1) Discussed r/b/a laparoscopic bilateral salpingectomy. She understands the surgery is permanent and irreversible with risk of regret. The rationale for the proposed surgery was discussed in addition to risks, benefits, and alternatives. General pre- and post-operative care was reviewed. Questions were answered. After discussion, the patient indicated a desire to proceed with the planned surgery. Amelia Howard DO Medical Decision Making: Problems: Moderate: New problem with uncertain prognosis Risk: Moderate: Decision on minor surgery w/ risk factors Medical Decision Making Level: 4 - Moderate Allergies As of Date: 08/16/2024 (No Known Allergies) Date Reviewed: 08/16/2024 Reviewed by: Amelia Howard MD - Fully Assessed Reason for Visit: Pre-Op Visit [1235] Primary Visit Diagnosis:Request for sterilization [Z30.2] Other Visit Diagnosis:Visit for pre-operative examination [Z01.818] Prescriptions as of 08/16/2024 - vits62/FA/om3/dha/e pa ( GUMMY ORAL) Take 2 Pieces by mouth once daily. Problem List As Of Date 08/16/2024 Noted Resolved Supervision of normal [Z34.90] 11/14/2023 History of headache [Z87.898] 11/14/2023 Obesity affecting in second trimester* Nausea [R11.0] 12/19/2023 Request for sterilization [Z30.2] 04/23/2024 Abnormal glucose complicating [O99.81*04/26/2024 Medications Discontinued During This Encounter Prescriptions - ferrous sulfate (IRON) 325 mg (65 mg iron) tablet (Discontinued) Reported on 07/26/2024 - OTC NUTRITIONAL SUPPLEMENT (Discontinued) Reported on 07/26/2024 Disposition: Return in about 2 weeks (around 08/30/2024) for post op SW. Follow-up and Disposition History for Encounter Date Provider Department Center 08/16/2024 [id number] HOWARD Encounter Status:Closed by AMELIA HOWARD on 08/16/24 Normal [facility] HISTORY PHYSICALon HISTORY PHYSICAL HNO ID: [id number] Author: AMELIA HOWARD MD Service: ? Author Type: Physician Type: H&P Filed: 08/16/2024 12:41 Note Text: DATE OF SERVICE: August 16, 2024 PROBLEM: request for sterilization PAST SURGICAL HISTORY: PAST SURGICAL HISTORY Procedure Laterality Date NONE PAST MEDICAL HISTORY: PAST MEDICAL HISTORY Diagnosis Date No known health problems SUBJECTIVE: Pt doing well and offers no complaints SOCIAL HISTORY: Social History Tobacco Use Smoking status: Never Smokeless tobacco: Never Vaping Use Vaping status: Never Used Substance Use Topics Alcohol use: Not Currently Drug use: Never Current Outpatient Medications on File Prior to Visit Medication Sig vits62/FA/om3/dha/e pa ( GUMMY ORAL) Take 2 Pieces by mouth once daily. No current facility-administer ed medications on file prior to visit. ALLERGIES No Known Allergies OBJECTIVE: VITALS: BP 110/70 Pulse 76 Resp 14 Ht 162.6 cm (5' 4) Wt 86.2 kg (190 lb) LMP 09/26/2023 (Exact Date) No BMI 32.61 kg/m? HEENT: Normocephalic, atraumatic, Mucus membranes moist without lesions. SKIN: No lesions. CHEST: Clear to auscultation. No wheezes or rales. Good air exchange. HEART: Regular rate and rhythm No S3 or S4. No gallops or rubs. BACK: Nontender. ABDOMEN: Soft, non-tender, non-distended, no masses, no hepatosplenomegaly. LOWER EXTREMITIES: There was no pitting edema, no palpable cords and no skin changes. ASSESSMENT: pre op visit, request for sterilization PLAN: 1) Discussed r/b/a laparoscopic bilateral salpingectomy. She understands the surgery is permanent and irreversible with risk of regret. The rationale for the proposed surgery was discussed in addition to risks, benefits, and alternatives. General pre- and post-operative care was reviewed. Questions were answered. After discussion, the patient indicated a desire to proceed with the planned surgery. Amelia Howard, Medical Decision Making: Problems: Moderate: New problem with uncertain prognosis Risk: Moderate: Decision on minor surgery w/ risk factors Medical Decision Making Level: 4 - Moderate Normal [facility] AST(SGOT)on 07-05-2024 AST [Catalytic activity/Vol] 13 U/L Normal <=31 [facility] Comment on above: Performed By: #### L 501.1400, L501.1105, L501.0900, L501.4405, L501.4100 #### [facility] [address] [place], [address] Absolute lymphocyte countOrd ered By: Verena Garcia on 07-05-2024 Lymphocytes Auto (Unsp spec) [#/Vol] 2.07 10*3/uL 0.83-4.51 [facility] Absolute neutrophil countOrd ered By: Verena Garcia on 07-05-2024 Neutrophils (Bld) [#/Vol] 4.5 10*3/uL 2.0-7.7 [facility] Alanine Aminotransferas (SGP T)on 07-05-2024 ALT [Catalytic activity/Vol] 10 U/L Normal <=34 [facility] Comment on above: Performed By: #### L 501.1400, L501.1105, L501.0900, L501.4405, L501.4100 #### [facility] [address] [place], [address] Automated lymphocyte count a s percentage of total leukocytesOrdered By: Verena Garcia on 07-05-2024 Lymphocytes/100 WBC Auto (Unsp spec) 29.4 % 19-41 [facility] Basophil percentageOrdered B y: Verena Garcia on 07-05-2024 Basophils/100 WBC (Bld) 0.4 % 0-1 [facility] CBC W/Diff, Automatedon - Absolute Lymph 2.07 X10 3/uL Normal 0.83-4.51 [facility] Comment on above: Performed By: #### L 100.0100, BTS #### [facility] [address] [place], [address] Absolute Neut 4.5 X10 3/uL Normal 2.0-7.7 [facility] Comment on above: Performed By: #### L 100.0100, BTS #### [facility] [address] [place], [address] Basophils/100 WBC (Bld) 0.4 % Normal 0-1 [facility] Comment on above: Performed By: #### L 100.0100, BTS #### [facility] [address] [place], [address] Eosinophils/100 WBC (Bld) 1.0 % Normal 0-5 [facility] Comment on above: Performed By: #### L 100.0100, BTS #### [facility] [address] [place], [address] Erythrocyte distribution width (RBC) [Ratio] 15.6 % High 11.6-14.6 [facility] Comment on above: Performed By: #### L 100.0100, BTS #### [facility] [address] [place], [address] Hematocrit (Bld) [Volume fraction] 35.7 % Low 37-47 [facility] Comment on above: Performed By: #### L 100.0100, BTS #### [facility] [address] [place], [address] Hemoglobin (Bld) [Mass/Vol] 11.9 g/dL Low 12.0-15.0 [facility] Comment on above: Performed By: #### L 100.0100, BTS #### [facility] [address] [place], [address] IG% 0.700 Normal 0.0-0.9 [facility] Comment on above: Result Comment: IG% - Immature Granulocytes (promyelocytes, myelocytes and metamyelocytes) > 1% indicates that a LEFT SHIFT is Present. Performed By: #### L 100.0100, BTS #### [facility] [address] [place], [address] Lymphocytes/100 WBC (Bld) 29.4 % Normal 19-41 [facility] Comment on above: Performed By: #### L 100.0100, BTS #### [facility] [address] [place], [address] MCH (RBC) [Entitic mass] 29.3 pg Normal 27.0-32.0 [facility] Comment on above: Performed By: #### L 100.0100, BTS #### [facility] [address] [place], [address] MCHC (RBC) [Mass/Vol] 33.3 g/dL Normal 32-36 [facility] Comment on above: Performed By: #### L 100.0100, BTS #### [facility] [address] [place], [address] MCV (RBC) [Entitic vol] 87.9 fL Normal 81-99 [facility] Comment on above: Performed By: #### L 100.0100, BTS #### [facility] [address] [place], [address] Monocytes/100 WBC (Bld) 5.3 % Normal 0-10 [facility] Comment on above: Performed By: #### L 100.0100, BTS #### [facility] [address] [place], [address] Neutrophils/100 WBC (Bld) 63.2 % Normal 47-70 [facility] Comment on above: Performed By: #### L 100.0100, BTS #### [facility] [address] [place], [address] Nucleated RBC (Bld) [#/Vol] 0 10*3/uL Normal 0-5 [facility] Comment on above: Performed By: #### L 100.0100, BTS #### [facility] [address] [place], [address] Platelet mean volume (Bld) [Entitic vol] 10.2 fL Normal 6.2-12.0 [facility] Comment on above: Performed By: #### L 100.0100, BTS #### [facility] [address] [place], [address] Platelets (Bld) [#/Vol] 174 10*3/uL Normal 150-450 [facility] Comment on above: Performed By: #### L 100.0100, BTS #### [facility] [address] [place], [address] RBC (Bld) [#/Vol] 4.06 10*6/uL Low 4.2-5.4 [facility] Comment on above: Performed By: #### L 100.0100, BTS #### [facility] [address] [place], [address] RDW SD 50.3 fl High 35.1-43.9 [facility] Comment on above: Performed By: #### L 100.0100, BTS #### [facility] [address] [place], [address] WBC (Bld) [#/Vol] 7.0 10*3/uL Normal 4.4-11.0 [facility] Comment on above: Performed By: #### L 100.0100, BTS #### [facility] [address] [place], [address] Eosinophil percentageOrdered By: Verena Garcia on 07-05-2024 Eosinophils/100 WBC (Bld) 1.0 % 0-5 [facility] Erythrocyte distribution wid th ratioOrdered By: Verena Garcia on 07-05-2024 Erythrocyte distribution width (RBC) [Ratio] 15.6 % High 11.6-14.6 [facility] Erythrocyte distribution wid th standard deviationOrdered By: Verena Garcia on 07-05-2024 Erythrocyte distribution width (RBC) [Ratio] 50.3 fl High 35.1-43.9 [facility] Glomerular filtration rate ( GFR) estimation/1.73 sq m using serum, plasma, or whole bOrdered By: Amelia Howard on 07-05-2024 GFR/1.73 sq M.predicted among non-blacks MDRD (S/P/Bld) [Vol rate/Area] 131 mL/min/{1.73_m2} >60 [facility] Comment on above: mL/min/1.73m2 CKD-EP I Creatinine Equation (2020) H AND P Exam - OB/GYNon 06-24 H&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 Mu Fitzgerald MD Status:ADM IN Location: [id number] HPI - General General Date of Admission: 07/05/24 Date of Service: 07/05/24 Chief Complaint: IOL HPI Narrative ZAN SANTOS, is a 33 F who presents for scheduled IOL. Offers no complaints. [facility] Medical History (Updated 07/05/24 @ 12:[address] Amelia Howard, DO) Superficial varicosities Headache Home Medications ???Medication ???Instructions ???Recorded ???Last Taken ???Type vit 122-ferrous fumarate 1 tab PO DAILY 12/05/16 07/04/24 History 27 mg iron-folic acid 800 mcg tablet ( Multi) ferrous gluconate 324 mg (37.5 mg 325 mg (1.0031 x 324 mg (37.5 mg 12/07/16 07/04/24 Rx iron) tablet iron)) PO BIDCM anemia #60 TABLETS calcium 500 mg 1 each PO DAILY cramps and sleep 0 05/14/20 07/04/24 History (carb,gluconate)-ma gnesium 250 mg (gluc,oxide) tablet Allergy/AdvReac Type Severity Reaction Status Date / Time No Known Allergies Allergy Verified 07/05/24 07:33 Social History Smoking Status: Never smoker History Elective abortions Hx Para 2 Spontaneous abortions Hx # Term Pregnancies Ectopic pregnancies Hx # Pregnancies Multiple births # of living children NST FHR Rate Baby A FHR Category:: Category I Vital Signs Vital Signs Vital Signs: 07/05/24 07:18 07/05/24 07:18 07/05/24 07:19 Temperature Temperature Source Pulse Rate 89 Respiratory Rate Blood Pressure 133/87 H BP Systolic 133 BP Diastolic 87 Pulse Ox 97 07/05/24 07:19 07/05/24 08:57 07/05/24 08:57 Temperature Temperature Source Pulse Rate 93 89 Respiratory Rate Blood Pressure 115/65 BP Systolic 115 BP Diastolic 65 Pulse Ox 07/05/24 08:57 07/05/24 08:57 07/05/24 09:03 Temperature Temperature Source Temporal Pulse Rate 88 Respiratory Rate Blood Pressure BP Systolic BP Diastolic Pulse Ox 92 07/05/24 09:03 07/05/24 09:03 07/05/24 09:03 Temperature 97.9 F Temperature Source Pulse Rate Respiratory Rate 16 Blood Pressure BP Systolic BP Diastolic Pulse Ox 97 07/05/24 10:19 07/05/24 10:19 07/05/24 10:19 Temperature Temperature Source Temporal Pulse Rate 83 Respiratory Rate Blood Pressure 119/73 BP Systolic 119 BP Diastolic 73 Pulse Ox 07/05/24 10:19 07/05/24 10:19 07/05/24 10:19 Temperature 98.0 F Temperature Source Pulse Rate Respiratory Rate 16 Blood Pressure BP Systolic BP Diastolic Pulse Ox 98 07/05/24 11:32 07/05/24 11:32 07/05/24 11:37 Temperature Temperature Source Pulse Rate 80 74 Respiratory Rate Blood Pressure BP Systolic BP Diastolic Pulse Ox 99 07/05/24 11:37 07/05/24 11:38 07/05/24 11:38 Temperature Temperature Source Pulse Rate 75 Respiratory Rate Blood Pressure 131/78 H BP Systolic 131 BP Diastolic 78 Pulse Ox 99 07/05/24 11:41 07/05/24 11:41 07/05/24 11:41 Temperature Temperature Source Pulse Rate 80 Respiratory Rate 16 Blood Pressure 130/77 H BP Systolic 130 BP Diastolic 77 Pulse Ox 07/05/24 11:42 07/05/24 11:42 07/05/24 11:44 Temperature Temperature Source Pulse Rate 86 Respiratory Rate Blood Pressure BP Systolic BP Diastolic Pulse Ox 98 94 07/05/24 11:46 07/05/24 11:47 07/05/24 11:47 Temperature Temperature Source Pulse Rate 82 Respiratory Rate 16 Blood Pressure 127/76 H BP Systolic 127 BP Diastolic 76 Pulse Ox 07/05/24 11:47 07/05/24 11:47 07/05/24 11:47 Temperature Temperature Source Pulse Rate 82 Respiratory Rate Blood Pressure 124/71 H BP Systolic 124 BP Diastolic 71 Pulse Ox 97 07/05/24 11:51 07/05/24 11:51 07/05/24 11:51 Temperature Temperature Source Pulse Rate 95 Respiratory Rate 16 Blood Pressure 130/74 H BP Systolic 130 BP Diastolic 74 Pulse Ox 07/05/24 11:52 07/05/24 11:52 07/05/24 11:56 Temperature Temperature Source Temporal Pulse Rate 90 Respiratory Rate Blood Pressure BP Systolic BP Diastolic Pulse Ox 98 07/05/24 11:56 07/05/24 11:56 07/05/24 11:57 Temperature 97.8 F Temperature Source Pulse Rate 88 Respiratory Rate 16 Blood Pressure BP Systolic BP Diastolic Pulse Ox (more content not included)... Normal [facility] Hematocrit Auto (Bld) [Volum e fraction]Ordered By: Verena Garcia on 07-05-2024 Hematocrit (Bld) [Volume fraction] 35.7 % Low 37-47 [facility] Hemoglobin measurementOrdere d By: Verean Garcia on 07-05-2024 Hemoglobin (Bld) [Mass/Vol] 11.9 g/dL Low 12.0-15.0 [facility] Immature granulocytes/100 WB C Auto (Bld)Ordered By: Verena Garcia on 07-05-2024 Immature granulocytes/100 WBC (Bld) 0.700 % 0.0-0.9 [facility] Comment on above: IG% - Immature Granu locytes (promyelocytes, myelocytes and metamyelocytes) > 1% indicates that a LEFT SHIFT is Present. Laboratory - Chemistry and C hemistry - challengeOrdered By: Amelia Howard on 07-05-2024 AST [Catalytic activity/Vol] 13 U/L <32 [facility] MCV (mean corpuscular volume ) determinationOrdered By: Verena Garcia on 07-05-2024 MCV (RBC) [Entitic vol] 87.9 fL 81-99 [facility] MR/OB.VAGDELIon 07-05-2024 MR/OB.JAVANI [facility] Medical Records Department [address] [place] [address] OB Vaginal Delivery 07/05/24 1617 MR#: [id number] Acct: [id number] Name: ZAN SANTOS Rep #: [id number] : 1990 33 From: Amelia Howadr DO PCP: Dr. Mu Fitzgerald MD Status:ADM IN Location: [place] [id number] Assessment Plan (1) 40 weeks gestation of : (2) Elective induction of labor planned: (3) Vaginal delivery: (4) Second degree perineal laceration: Vaginal Delivery Maternal Presentation Maternal Presentation: Elective Induction Type of Induction: Pitocin and Amniotomy Vaginal Delivery Information Procedure Performed: Spontaneous Vaginal Delivery Surgeon/Maria Ee r: Amelia Howard Date of Procedure: 07/05/24 Pre-Procedure Diagnosis: 40 week gestation, elective IOL Post-Procedure Diagnosis: As above Type of anesthesia: Epidural Special Medications: None Estimated Blood Loss: 250 mL Fluids Replaced: N/A Findings Description of procedure: The patient was complete and pushing. The head of the delivered in FAN position. A tight nuchal cord x 1 was noted around the neck without compression. The anterior shoulder was delivered through the nuchal cord, followed by the posterior shoulder and body without any traction, force, delay. A vigorous viable male was placed on maternal abdomen. The cord was clamped and cut after a 60 second delay by the father of the baby. Placenta was delivered spontaneously and noted to be normal-appearing and intact with a three-vessel cord. 3-0 Vicryl was used to repair second- degree perineal laceration in usual fashion. Fundus firm and bleeding scant. A vaginal sweep was performed. Sharp and sponge counts were correct. Procedure findings: Vigorous VMI Apgars 8, 9. 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 Amelia Howard DO; Dr. Mu Fitzgerald MD Signed Normal [facility] Mean corpuscular hemoglobin (MCH) determinationOrdered By: Verena Garcia on 07-05-2024 MCH (RBC) [Entitic mass] 29.3 pg 27.0-32.0 [facility] Mean corpuscular hemoglobin concentration (MCHC) determinationOrdered By: Verena Garcia on 07-05-2024 MCHC (RBC) [Mass/Vol] 33.3 g/dL 32-36 [facility] Mean platelet volume determi nationOrdered By: Verena Garcia on 07-05-2024 Platelet mean volume (Bld) [Entitic vol] 10.2 fL 6.2-12.0 [facility] Monocyte percentageOrdered B y: Verena Garcia on 07-05-2024 Monocytes/100 WBC (Bld) 5.3 % 0-10 [facility] Neutrophil percentageOrdered By: Verena Garcia on 07-05-2024 Neutrophils/100 WBC (Bld) 63.2 % 47-70 [facility] Nucleated red blood cell per centageOrdered By: Verena Garcia on 07-05-2024 Nucleated RBC/100 WBC (Bld) [Ratio] 0 % 0-5 [facility] Platelet countOrdered By: Alena Garcia on 07-05-2024 Platelets (Bld) [#/Vol] 174 10*3/uL 150-450 [facility] Protein+Creatinine Ratio,Uri neon 07-05-2024 PROT:CRE RATIO 239 mg/g CRE High 0-200 [facility] Comment on above: Performed By: #### L 501.1400, L501.1105, L501.0900, L501.4405, L501.4100 #### [facility] [address] [place], [address] Protein (U) [Mass/Vol] 8.2 mg/dL Normal 0.0-12.0 [facility] Comment on above: Performed By: #### L 501.1400, L501.1105, L501.0900, L501.4405, L501.4100 #### [facility] [address] [place], [address] UR CREAT 34.40 mg/dL Normal 28.00-217.00 [facility] Comment on above: Performed By: #### L 501.1400, L501.1105, L501.0900, L501.4405, L501.4100 #### [facility] [address] [place], [address] RBC Auto (Bld) [#/Vol]Ordere d By: Verena Garcia on 07-05-2024 RBC (Bld) [#/Vol] 4.06 10*6/uL Low 4.2-5.4 [facility] Random urine creatinine neal urement (mass/volume)Ordered By: Amelia Howard on 07-05-2024 Creatinine Unsp time (U) [Mass/Vol] 34.40 mg/dL 28.00-217.00 [facility] Serum Creatinine AND GFRon 0 07-05-2024 Creatinine [Mass/Vol] 0.46 mg/dL Low 0.70-1.20 [facility] Comment on above: Performed By: #### L 501.1400, L501.1105, L501.0900, L501.4405, L501.4100 #### [facility] [address] [place], [address] ECRCL 196.21 ml/min Normal 50-250 [facility] Comment on above: Performed By: #### L 501.1400, L501.1105, L501.0900, L501.4405, L501.4100 #### [facility] [address] [place], [address] GFR/1.73 sq M.predicted among non-blacks MDRD (S/P/Bld) [Vol rate/Area] 131 mL/min/{1.73_m2} Normal >60 [facility] Comment on above: Result Comment: mL/m in/1.73m2 CKD-EPI Creatinine Equation (2020) Performed By: #### L 501.1400, L501.1105, L501.0900, L501.4405, L501.4100 #### [facility] [address] [place], [address] Serum creatinine measurement (mass/volume)Ordered By: Amelia Howard on 07-05-2024 Creatinine [Mass/Vol] 0.46 mg/dL Low 0.70-1.20 [facility] Serum or plasma alanine hearn otransferase (ALT) measurementOrdered By: Amelia Howard on 07-05-2024 ALT [Catalytic activity/Vol] 10 U/L <35 [facility] Serum or plasma uric acid me asurement (mass/volume)Ordered By: Amelia Howard on 07-05-2024 Urate [Mass/Vol] 5.3 mg/dL 2.6-6.0 [facility] Comment on above: The drugs N-Acetylcy steine and Metamizole may falsely depress this assay. Syphilis Antibodieson 2024 Syphilis Abs Non-Reactive Normal Nonreactive [facility] Comment on above: Performed By: #### L 509.8002 ####[facility] [address] [place], [address] Type AND Screenon 07-05-2024 Ab SCREEN GEL Negative Normal [facility] Comment on above: Order Comment: Labor Performed By: #### L 100.0100, BTS #### [facility] [address] [place], [address] Uric Acidon 07-05-2024 URIC 5.3 mg/dL Normal 2.6-6.0 [facility] Comment on above: Result Comment: The drugs N-Acetylcysteine and Metamizole may falsely depress this assay. Performed By: #### L 501.1400, L501.1105, L501.0900, L501.4405, L501.4100 #### [facility] [address] [place], [address] Urine protein measurement (m ass/volume)Ordered By: Amelia Howard on 07-05-2024 Protein (U) [Mass/Vol] 8.2 mg/dL 0.0-12.0 [facility] Urine protein/creatinine mas s ratioOrdered By: Amelia Howard on 07-05-2024 Protein/Creatinine (U) [Mass ratio] 239 mg/g CRE High 0-200 [facility] White blood cell (WBC) count Ordered By: Verena Garcia on 07-05-2024 WBC (Bld) [#/Vol] 7.0 10*3/uL 4.4-11.0 [facility] URINE OB DIP B/Oon 5 Glucose Ql (U) Negative Neg mg/dL [facility] Interpretation and review of laboratory results Normal [facility] Protein.monoclonal (U) [Mass/Vol] Negative Neg mg/dL [facility] URINE OB DIP B/Oon 5 Glucose Ql (U) Negative Neg mg/dL [facility] Interpretation and review of laboratory results Normal [facility] Protein.monoclonal (U) [Mass/Vol] Negative Neg mg/dL [facility] URINE OB DIP B/Oon 5 Glucose Ql (U) Negative Neg mg/dL [facility] Interpretation and review of laboratory results Normal [facility] Protein.monoclonal (U) [Mass/Vol] Negative Neg mg/dL [facility] ROUTINE, GROUP B ST REPTOCOCCUS BY PCRon 06-04-2024 ROUTINE, GROUP B STREPTOCOCCUS BY PCR Not detected Normal [facility] Comment on above: Performed By: #### L [id number] #### [facility] CLIA [id number] [address] [place] [address] [place] [facility] CLIA [id number] [address] [place] [address] [place] #### HPVHRT #### [facility] CLIA [id number] [facility] [place] [address] [place] URINE OB DIP B/Oon 5 Glucose Ql (U) Negative Neg mg/dL [facility] Interpretation and review of laboratory results Normal [facility] Protein.monoclonal (U) [Mass/Vol] Negative Neg mg/dL [facility] GLUCOSE GESTATIONAL, 1 HOURo n 04-30-2024 Glucose 1 Hr post Unsp challenge [Mass/Vol] 123 mg/dL Normal 74-179 [facility] Comment on above: Order Comment: Rufina szymanski Type: FLUID SPECIMEN Ordering Facility: [facility] Address: [address] [place] [address] Result Comment: [facility] Congress of Obstetricians and Gynecologists (Ryan/Gavi) guidelines state gestational diabetes mellitus is present when 2 or more of the plasma glucose concentrations meet or exceed the following levels: fastin mg/dl, 1 hr: 180 mg/dl, 2 hr: 155 mg/dl, and 3 hr: 140 mg/dl. Performed By: #### L [id number] #### [facility] CLIA [id number] [address] [place] [address] [place] [facility] CLIA [id number] [address] [place] [address] [place] #### HPVHRT #### [facility] CLIA [id number] [address] [place] [address] [place] GLUCOSE GESTATIONAL, 2 HOURo n 04-30-2024 Glucose 2 Hr post Unsp challenge [Mass/Vol] 133 mg/dL Normal 74-154 [facility] Comment on above: Order Comment: Rufina szymanski Type: BLOOD SPECIMEN Ordering Facility: [facility] Address: [address] [place] [address] Result Comment: [facility] Congress of Obstetricians and Gynecologists (Davis/Gavi) guidelines state gestational diabetes mellitus is present when 2 or more of the plasma glucose concentrations meet or exceed the following levels: fastin mg/dl, 1 hr: 180 mg/dl, 2 hr: 155 mg/dl, and 3 hr: 140 mg/dl. Performed By: #### G [id number] #### [facility] CLIA [id number] [address] [place], [place] [id number] [place] GLUCOSE GESTATIONAL, 3 HOURo n 04-30-2024 Glucose 3 Hr post Unsp challenge [Mass/Vol] 134 mg/dL Normal 74-139 [facility] Comment on above: Order Comment: Specodalis szymanski Type: FLUID SPECIMEN Ordering Facility: [facility] Address: [address] [place] [address] Result Comment: [facility] Congress of Obstetricians and Gynecologists (Ryan/Gavi) guidelines state gestational diabetes mellitus is present when 2 or more of the plasma glucose concentrations meet or exceed the following levels: fastin mg/dl, 1 hr: 180 mg/dl, 2 hr: 155 mg/dl, and 3 hr: 140 mg/dl. Performed By: #### L [id number] #### [facility] CLIA [id number] [address] [place] [address] [place] [facility] CLIA [id number] [address] [place] [address] [place] #### HPVHRT #### [facility] CLIA [id number] [address] [place] [address] [place] GLUCOSE GESTATIONAL, FASTING on 04-30-2024 Glucose post fast [Mass/Vol] 79 mg/dL Normal 74-94 [facility] Comment on above: Order Comment: Rufina szymanski Type: BLOOD SPECIMEN Ordering Facility: [facility] Address: [address] [place] [address] Result Comment: [facility] Congress of Obstetricians and Gynecologists (Ryan/Gavi) guidelines state gestational diabetes mellitus is present when 2 or more of the plasma glucose concentrations meet or exceed the following levels: fastin mg/dl, 1 hr: 180 mg/dl, 2 hr: 155 mg/dl, and 3 hr: 140 mg/dl. Performed By: #### T SPN #### [facility] CLIA [id number] [address] [place] [address] [place] CBC W Auto Differential pane l (Bld)on 02-28-2025 Basophils (Bld) [#/Vol] 10*3/uL Normal <0.11 [facility] Comment on above: Order Comment: Speci men Type: FLUID SPECIMEN Ordering Facility: [facility] Address: [address] [place] [address] Performed By: #### L [id number] #### [facility] CLIA [id number] [address] [place] [address] [place] [facility] CLIA [id number] [address] [place] [address] [place] #### HPVHRT #### [facility] CLIA [id number] [address] [place] [address] [place] Basophils/100 WBC (Bld) 0.3 % Normal C [facility] Comment on above: Order Comment: Speci men Type: FLUID SPECIMEN Ordering Facility: [facility] Address: [address] [place] [address] Performed By: #### L [id number] #### [facility] CLIA [id number] [address] [place] [address] [place] [facility] CLIA [id number] [address] [place] [address] [place] #### HPVHRT #### [facility] CLIA [id number] [address] [place] [address] [place] Differential cell count method Nom (Bld) Auto Normal [facility] Comment on above: Order Comment: Speci men Type: FLUID SPECIMEN Ordering Facility: [facility] Address: [address] [place] [address] Performed By: #### L [id number] #### [facility] CLIA [id number] [address] [place] [address] [place] [facility] CLIA [id number] [address] [place] [address] [place] #### HPVHRT #### [facility] CLIA [id number] [address] [place] [address] [place] Eosinophils (Bld) [#/Vol] 0.05 10*3/uL Normal <0.46 [facility] Comment on above: Order Comment: Speci men Type: FLUID SPECIMEN Ordering Facility: [facility] Address: [address] [place] [address] Performed By: #### L [id number] #### [facility] CLIA [id number] [address] [place] [address] [place] [facility] CLIA [id number] [address] [place] [address] [place] #### HPVHRT #### [facility] CLIA [id number] [address] [place] [address] [place] Eosinophils/100 WBC (Bld) 0.8 % Normal [facility] Comment on above: Order Comment: Speci men Type: FLUID SPECIMEN Ordering Facility: [facility] Address: [address] [place] [address] Performed By: #### L [id number] #### [facility] CLIA [id number] [address] [place] [address] [place] [facility] CLIA [id number] [address] [place] [address] [place] #### HPVHRT #### [facility] CLIA [id number] [address] [place] [address] [place] Erythrocyte distribution width (RBC) [Ratio] 14.2 % Normal 11.5-15.0 [facility] Comment on above: Order Comment: Speci men Type: FLUID SPECIMEN Ordering Facility: [facility] Address: [address] [place] [address] Performed By: #### L [id number] #### [facility] CLIA [id number] [address] [place] [address] [place] [facility] CLIA [id number] [address] [place] [address] [place] #### HPVHRT #### [facility] CLIA [id number] [address] [place] [address] [place] Hematocrit (Bld) [Volume fraction] 32.1 % Low 36.0-46.0 [facility] Comment on above: Order Comment: Speci men Type: FLUID SPECIMEN Ordering Facility: [facility] Address: [address] [place] [address] Performed By: #### L [id number] #### [facility] CLIA [id number] [address] [place] [address] [place] [facility] CLIA [id number] [address] [place] [address] [place] #### HPVHRT #### [facility] CLIA [id number] [address] [place] [address] [place] Hemoglobin (Bld) [Mass/Vol] 10.7 g/dL Low 11.5-15.5 [facility] Comment on above: Order Comment: Speci men Type: FLUID SPECIMEN Ordering Facility: [facility] Address: [address] [place] [address] Performed By: #### L [id number] #### [facility] CLIA [id number] [address] [place] [address] [place] [facility] CLIA [id number] [address] [place] [address] [place] #### HPVHRT #### [facility] CLIA [id number] [address] [place] [address] [place] Immature granulocytes (Bld) [#/Vol] 0.04 10*3/uL Normal <0.10 [facility] Comment on above: Order Comment: Speci men Type: FLUID SPECIMEN Ordering Facility: [facility] Address: [address] [place] [address] Performed By: #### L [id number] #### [facility] CLIA [id number] [address] [place] [address] [place] [facility] CLIA [id number] [address] [place] [address] [place] #### HPVHRT #### [facility] CLIA [id number] [address] [place] [address] [place] Immature granulocytes/100 WBC (Bld) 0.7 % Normal [facility] Comment on above: Order Comment: Speci men Type: FLUID SPECIMEN Ordering Facility: [facility] Address: [address] [place] [address] Performed By: #### L [id number] #### [facility] CLIA [id number] [address] [place] [address] [place] [facility] CLIA [id number] [address] [place] [address] [place] #### HPVHRT #### [facility] CLIA [id number] [address] [place] [address] [place] Lymphocytes (Bld) [#/Vol] 1.74 10*3/uL Normal 1.00-4.0 0 [facility] Comment on above: Order Comment: Speci men Type: FLUID SPECIMEN Ordering Facility: [facility] Address: [address] [place] [address] Performed By: #### L [id number] #### [facility] CLIA [id number] [address] [place] [address] [place] [facility] CLIA [id number] [address] [place] [address] [place] #### HPVHRT #### [facility] CLIA [id number] [address] [place] [address] [place] Lymphocytes/100 WBC (Bld) 29.2 % Normal [facility] Comment on above: Order Comment: Speci men Type: FLUID SPECIMEN Ordering Facility: [facility] Address: [address] [place] [address] Performed By: #### L [id number] #### [facility] CLIA [id number] [address] [place] [address] [place] [facility] CLIA [id number] [address] [place] [address] [place] #### HPVHRT #### [facility] CLIA [id number] [address] [place] [address] [place] MCH (RBC) [Entitic mass] 29.2 pg Normal 26.0-34.0 [facility] Comment on above: Order Comment: Speci men Type: FLUID SPECIMEN Ordering Facility: [facility] Address: [address] [place] [address] Performed By: #### L [id number] #### [facility] CLIA [id number] [address] [place] [address] [place] [facility] CLIA [id number] [address] [place] [address] [place] #### HPVHRT #### [facility] CLIA [id number] [address] [place] [address] [place] MCHC (RBC) [Mass/Vol] 33.3 g/dL Normal 30.5-36.[address] [facility] Comment on above: Order Comment: Speci men Type: FLUID SPECIMEN Ordering Facility: [facility] Address: [address] [place] [address] Performed By: #### L [id number] #### [facility] CLIA [id number] [address] [place] [address] [place] [facility] CLIA [id number] [address] [place] [address] [place] #### HPVHRT #### [facility] CLIA [id number] [address] [place] [address] [place] MCV (RBC) [Entitic vol] 87.5 fL Normal 80.0-100.0 C [facility] Comment on above: Order Comment: Speci men Type: FLUID SPECIMEN Ordering Facility: [facility] Address: [address] [place] [address] Performed By: #### L [id number] #### [facility] CLIA [id number] [address] [place] [address] [place] [facility] CLIA [id number] [address] [place] [address] [place] #### HPVHRT #### [facility] CLIA [id number] [address] [place] [address] [place] Monocytes (Bld) [#/Vol] 0.30 10*3/uL Normal <0.87 [facility] Comment on above: Order Comment: Speci men Type: FLUID SPECIMEN Ordering Facility: [facility] Address: [address] [place] [address] Performed By: #### L [id number] #### [facility] CLIA [id number] [address] [place] [address] [place] [facility] CLIA [id number] [address] [place] [address] [place] #### HPVHRT #### [facility] CLIA [id number] [address] [place] [address] [place] Monocytes/100 WBC (Bld) 5.0 % Normal C [facility] Comment on above: Order Comment: Speci men Type: FLUID SPECIMEN Ordering Facility: [facility] Address: [address] [place] [address] Performed By: #### L [id number] #### [facility] CLIA [id number] [address] [place] [address] [place] [facility] CLIA [id number] [address] [place] [address] [place] #### HPVHRT #### [facility] CLIA [id number] [address] [place] [address] [place] Neutrophils (Bld) [#/Vol] 3.81 10*3/uL Normal 1.45-7.5 0 [facility] Comment on above: Order Comment: Speci men Type: FLUID SPECIMEN Ordering Facility: [facility] Address: [address] [place] [address] Performed By: #### L [id number] #### [facility] CLIA [id number] [address] [place] [address] [place] [facility] CLIA [id number] [address] [place] [address] [place] #### HPVHRT #### [facility] CLIA [id number] [address] [place] [address] [place] Neutrophils/100 WBC (Bld) 64.0 % Normal [facility] Comment on above: Order Comment: Speci men Type: FLUID SPECIMEN Ordering Facility: [facility] Address: [address] [place] [address] Performed By: #### L [id number] #### [facility] CLIA [id number] [address] [place] [address] [place] [facility] CLIA [id number] [address] [place] [address] [place] #### HPVHRT #### [facility] CLIA [id number] [address] [place] [address] [place] Nucleated RBC (Bld) [#/Vol] 10*3/uL Normal <0.01 [facility] Comment on above: Order Comment: Speci men Type: FLUID SPECIMEN Ordering Facility: [facility] Address: [address] [place] [address] Performed By: #### L [id number] #### [facility] CLIA [id number] [address] [place] [address] [place] [facility] CLIA [id number] [address] [place] [address] [place] #### HPVHRT #### [facility] CLIA [id number] [address] [place] [address] [place] Nucleated RBC/100 WBC (Bld) [Ratio] 0.0 /100 WBC Normal [facility] Comment on above: Order Comment: Speci men Type: FLUID SPECIMEN Ordering Facility: [facility] Address: [address] [place] [address] Performed By: #### L [id number] #### [facility] CLIA [id number] [address] [place] [address] [place] [facility] CLIA [id number] [address] [place] [address] [place] #### HPVHRT #### [facility] CLIA [id number] [address] [place] [address] [place] Platelet mean volume (Bld) [Entitic vol] 9.8 fL Normal 9.0-12.7 [facility] Comment on above: Order Comment: Speci men Type: FLUID SPECIMEN Ordering Facility: [facility] Address: [address] [place] [address] Performed By: #### L [id number] #### [facility] CLIA [id number] [address] [place] [address] [place] [facility] CLIA [id number] [address] [place] [address] [place] #### HPVHRT #### [facility] CLIA [id number] [facility] [place] [address] [place] Platelets (Bld) [#/Vol] 198 10*3/uL Normal 150-400 [facility] Comment on above: Order Comment: Speci men Type: FLUID SPECIMEN Ordering Facility: [facility] Address: [address] [place] [address] Performed By: #### L [id number] #### [facility] CLIA [id number] [address] [place] [address] [place] [facility] CLIA [id number] [address] [place] [address] [place] #### HPVHRT #### [facility] CLIA [id number] [address] [place] [address] [place] RBC (Bld) [#/Vol] 3.67 10*6/uL Low 3.90-5.20 [facility] Comment on above: Order Comment: Speci men Type: FLUID SPECIMEN Ordering Facility: [facility] Address: [address] [place] [address] Performed By: #### L [id number] #### [facility] CLIA [id number] [address] [place] [address] [place] [facility] CLIA [id number] [address] [place] [address] [place] #### HPVHRT #### [facility] CLIA [id number] [address] [place] [address] [place] WBC (Bld) [#/Vol] 5.96 10*3/uL Normal 3.70-11.00 [facility] Comment on above: Order Comment: Speci men Type: FLUID SPECIMEN Ordering Facility: [facility] Address: [address] [place] [address] Performed By: #### L [id number] #### [facility] CLIA [id number] [address] [place] [address] [place] [facility] CLIA [id number] [address] [place] [address] [place] #### HPVHRT #### [facility] CLIA [id number] [address] [place] [address] [place] GESTATIONAL GLUCOSE SCREEN, 1-HOUR, 50 GRAM, NON-FASTINGon 04-23-2024 Glucose [Mass/Vol] 152 mg/dL High 74-134 [facility] Comment on above: Order Comment: Speci men Type: FLUID SPECIMEN Ordering Facility: [facility] Address: [address] [place] [address] Result Comment: [facility] Congress of Obstetricians and Gynecologists (Davis/Gavi) guidelines state a gestational diabetes mellitus positive screen is made, in women not previously diagnosed with overt diabetes, when the 1 hr plasma glucose level is equal to or above 140 mg/dL. The [facility] Count Team [facility] and [facility] [place] recommends a 135 mg/dL cutoff. Performed By: #### L [id number] #### [facility] [place] [id number] [address] [place] [address] [place] [facility] CLIA [id number] [address] [place] [address] [place] #### HPVHRT #### [facility] CLIA [id number] [address] [place] [address] [place] Reagin and Treponema pallidu m IgG and IgM [Interp]on 04-23-2024 T. pallidum IgG+IgM IA Ql (S) Non-Reactive Normal Nonreactive [facility] Comment on above: Order Comment: Speci men Type: BLOOD SPECIMEN Ordering Facility: [facility] Address: [address] [place] [address] Performed By: #### T SPN #### [facility] CLIA [id number] [address] [place] [address] [place] Reagin+T pallidum IgG+IgM Se rPl-Impon 04-23-2024 Reagin and Treponema pallidum IgG and IgM [Interp] Cannot exclude recent Treponemal infection if specimen collected within 7-10 days after appearance of suspect lesions or 2-3 weeks after an exposure. Clinical correlation is required. Normal [facility] Comment on above: Order Comment: Speci men Type: BLOOD SPECIMEN Ordering Facility: [facility] Address: [address] [place] [address] Performed By: #### T SPN #### [facility] CLIA [id number] [address] [place] [address] [place] BACTERIAL VAGINOSIS NAATon 0 03-31-2024 Lactobacillus crispatus+gasseri+jenseni i + Gardnerella vaginalis + Atopobium vaginae rRNA KEIKO+probe Ql (Vag fld) Not detected Normal Not detected [facility] Comment on above: Order Comment: Speci men Type: FLUID SPECIMEN Ordering Facility: [facility] Address: [address] [place] [address] Performed By: #### L [id number] #### [facility] CLIA [id number] [address] [place] [address] [place] [facility] CLIA [id number] [address] [place] [address] [place] #### HPVHRT #### [facility] CLIA [id number] [address] [place] [address] [place] KALINA/TRICHOMONAS NAATon 0 03-31-2024 C. glabrata RNA KEIKO+probe Ql (Vag fld) Not detected Normal Not detected [facility] Comment on above: Order Comment: Speci men Type: FLUID SPECIMEN Ordering Facility: [facility] Address: [address] [place] [address] Performed By: #### L [id number] #### [facility] CLIA [id number] [address] [place] [address] [place] [facility] CLIA [id number] [address] [place] [address] [place] #### HPVHRT #### [facility] CLIA [id number] [address] [place] [address] [place] Kalina sp DNA KEIKO+probe Ql (Vag fld) Not detected Normal Not detected [facility] Comment on above: Order Comment: Speci men Type: FLUID SPECIMEN Ordering Facility: [facility] Address: [address] [place] [address] Result Comment: The Kalina species group target includes C. albicans, C. tropicalis, C. parapsilosis, and C. dubliniensis. Performed By: #### L [id number] #### [facility] CLIA [id number] [address] [place] [address] [place] [facility] CLIA [id number] [address] [place] [address] [place] #### HPVHRT #### [facility] CLIA [id number] [address] [place] [address] [place] T. vaginalis DNA KEIKO+probe Ql (Unsp spec) Not detected Normal Not detected [facility] Comment on above: Order Comment: Speci men Type: FLUID SPECIMEN Ordering Facility: [facility] Address: [address] [place] [address] Performed By: #### L [id number] #### [facility] CLIA [id number] [address] [place] [address] [place] [facility] CLIA [id number] [address] [place] [address] [place] #### HPVHRT #### [facility] CLIA [id number] [address] [place] [address] [place] Nakia 02-26-2024 CNPN Telephone (OBGRIN PublishingW) ---- ZAN SANTOS ([id number]) 1990 F Date Time Provider Department 02/26/24 JEANNA FERRERA OBPETR During your visit today, we recorded the following information about you: Audi Thompson 02/26/2024 8:57 AM Signed Heike, Can I get an anatomy scan order for this PT. She is here now. Allergies As of Date: 02/26/2024 (No Known Allergies) Date Reviewed: 02/26/2024 Reviewed by: Shiv Mckeon MD - Fully Assessed Primary Visit Diagnosis:Obesity in , antepartum [O99.210] Order(s):OBSTETRIC ULTRASOUND [facility] [[id number]] Order #: [id number]: 1 FUTURE Prescriptions as of 07/13/2024 - ferrous sulfate (IRON) 325 mg (65 mg iron) tablet Take 325 mg by mouth once daily. - vits62/FA/om3/dha/e pa ( GUMMY ORAL) Take 2 Pieces by mouth once daily. - OTC NUTRITIONAL SUPPLEMENT Take 1 tablet by mouth once daily. Calcium, Magnesium, and Zinc supplement Problem List As Of Date 02/26/2024 Noted Resolved Supervision of normal [Z34.90] 11/14/2023 History of headache [Z87.898] 11/14/2023 Obesity affecting in second trimester* 4 Nausea [R11.0] 12/19/2023 Encounter Status:Closed by AUDI THOMPSON on 07/13/24 Normal [facility] Examination level ultrasound on 02-26-2024 Indication Detailed anatomic survey Maternal obesity, BMI >30 Impression REMOTE READ The patient is referred for a standard anatomic survey. - Single, live, intrauterine . - biometry is consistent with the established gestational age. - No malformations were visualized on a complete standard anatomic survey. - The amniotic fluid volume is normal amount. - The placenta is posterior, fundal. - The Transabdominal cervical length measures 37.1 mm with no evidence of funneling or other dynamic changes. - Not all structural malformations can be detected by ultrasound examination. Recommendations Additional follow-up as clinically indicated. Maternal Assessment Height 163 cm Height (ft) 5 ft Height (in) 4 in Physical Exam Initial weight (lb) 192 lb Initial BMI 32.96 kg/m Maternal assessment other: 3 Para 2 Method Transabdominal ultrasound examination. View: Adequate visualization [place] . Number of fetuses: 1 Dating LMP on: 09/26/2023 GA by LMP 21 w + 6 d LE by LMP: 07/02/2024 GA by prior assessment 21 w + 6 d LE by prior assessment: 07/02/2024 Ultrasound examination on: 02/26/2024 GA by U/S based upon: AC, BPD, Femur, HC GA by U/S 21 w + 5 d LE by U/S: 07/03/2024 Assigned: based on stated LE, selected on 12/19/2023 Assigned GA 21 w + 6 d Assigned LE: 07/02/2024 General Evaluation Cardiac activity present. FHR 155 bpm. movements: present. Presentation: cephalic Placenta: Placental site: posterior, fundal Umbilical cord: Cord vessels: 3 vessel cord Amniotic fluid: Amount of AF: normal amount. MVP 6.5 cm Growth Overview Exam date GA BPD (mm) HC (mm) AC (mm) FL (mm) HL (mm) EFW (g) 02/26/2024 21w 6d 52.2 47% 200.4 60% 170.2 47% 34.5 31% 34.1 40% 436 31% Biometry Standard BPD 52.2 mm 21w 6d 47% Hadlock OFD 72.5 mm 22w 3d 89% Nicolaides HC 200.4 mm 22w 1d 60% Francisca Cerebellum tr 22.9 mm 21w 2d 51% Hill Nuchal fold 5.4 mm AC 170.2 mm 22w 0d 47% Hadlock Femur 34.5 mm 21w 0d 31% Francisca Humerus 34.1 mm 21w 4d 40% Francisca EFW 436 g 21w 3d 31% Hadlock EFW (lb) 0 lb EFW (oz) 15 oz EFW by: Hadlock (HC-AC-FL) Extended Software Applications Designer 4.0 mm CM 5.4 mm 49% Nicolaides Extremities / Bony Struc FL / HC 0.17 Other Structures FHR 155 bpm Anatomy Cranium: normal Lateral ventricles: normal Choroid plexus: normal Midline falx: normal Cavum septi pellucidi: normal Cerebellum: normal Cisterna magna: normal Head / Neck Vermis: normal Neck: normal Nuchal fold: normal Lips: normal Profile: normal Nose: normal Face Maxilla: normal Mandible: normal Orbits: normal Lens: normal 4-chamber view: normal RVOT view: normal LVOT view: normal 3-vessel view: normal 0-uqangb-gyppzxh view: normal Heart / Thorax Situs: situs solitus (normal) Aortic arch view: normal SVC: normal IVC: normal Cardiac axis: normal Rt lung: normal Lt lung: normal Diaphragm: normal Cord insertion: normal Stomach: normal Kidneys: normal Bladder: normal Genitals: normal Abdomen Abdom. wall: normal Cervical spine: normal Thoracic spine: normal Lumbar spine: normal Sacral spine: normal Arms: normal Legs: normal Rt upper arm: normal Rt forearm: normal Rt hand: normal Rt fingers: normal Lt upper arm: normal Lt forearm: normal Lt hand: normal Lt fingers: normal Rt upper leg: normal Rt lower leg: normal Rt foot: normal Lt upper leg: normal Lt lower leg: normal Lt foot: normal sex: male Wants to know sex: yes Maternal Structures Uterus / Cervix Uterus: Visualized Cervix: Visualized Approach: Transabdominal Cervical length 37.1 mm Other: Patient declined transvaginal ultrasound for cervical length. Ovaries / Tubes / Adnexa Rt ovary: Visualized Lt ovary: Visualized Performed By: Vanessa Jimenez RDMS, RVT Read By: Nancy Jaimes MD MATERNAL MEDICINE [facility] Radiology Study observation (narrative) [facility] nuchal translucency me asured by Manolo 12-19-2023 Indication First trimester anatomic survey Maternal obesity, BMI >30 Impression REMOTE READ The patient is referred for a first trimester anatomy scan including nuchal translucency measurement as clinically indicated. - Single, live, intrauterine . - [place] rump length measurement is consistent with the established gestational age. - No malformations visualized on first trimester anatomic assessment. - The nuchal translucency measurement is 1.4 mm. - Not all structural malformations can be detected by ultrasound examination. Maternal Structures: Right Ovary: Size 28 mm x 21 mm x 19 mm Left Ovary: Size 34 mm x 24 mm x 18 mm Recommendations - A standard anatomic survey at 16 weeks can be offered and a detailed exam at 20 weeks is recommended for increased risk. Maternal Assessment Height 163 cm Height (ft) 5 ft Height (in) 4 in Physical Exam Initial weight (lb) 192 lb Initial BMI 32.96 kg/m Maternal assessment other: 3 Para 2 Method Transabdominal ultrasound examination [place] . Number of fetuses: 1 Dating LMP on: 09/26/2023 GA by LMP 12 w + 0 d LE by LMP: 07/02/2024 GA by prior assessment 12 w + 0 d EL by prior assessment: 07/02/2024 Ultrasound examination on: 12/19/2023 GA by U/S based upon: CRL GA by U/S 12 w + 4 d LE by U/S: 06/28/2024 Assigned: based on stated LE, selected on 12/19/2023 Assigned GA 12 w + 0 d Assigned LE: 07/02/2024 General Evaluation Cardiac activity present Placenta: posterior Cord vessels: 3 vessel cord Amniotic fluid: normal amount Biometry Standard FHR 178 bpm CRL 60.0 mm 12w 4d 74% Hadlock NT 1.40 mm First Trimester Anatomy Calvarium: normal Falx cerebri: normal Choroid plexus: normal Profile: suboptimal Nasal bone: normal Retronasal triangle: normal Maxilla: normal Mandible: normal Nuchal translucency: Unremarkable Situs: normal Cardiac position: normal Cardiac axis: normal 4-chamber view: suboptimal 4-chamber view with color: normal 2-ppvvtx-zexrujr view: suboptimal Abdominal cord insertion: normal Stomach: normal Kidneys: normal Bladder: normal Color doppler of perivesical umbilical arteries: normal Vertebral alignment: normal Arms: normal Hands: normal Legs: normal Feet: normal Maternal Structures Uterus / Cervix Uterus: Visualized Uterus length 161 mm Uterus width 86 mm Uterus height 70 mm Uterus Vol 507.2 cm Ovaries / Tubes / Adnexa Rt ovary: Visualized Rt ovary D1 28 mm Rt ovary D2 21 mm Rt ovary D3 19 mm Rt ovary Vol 5.9 cm Lt ovary: Visualized Lt ovary D1 34 mm Lt ovary D2 24 mm Lt ovary D3 18 mm Lt ovary Vol 7.7 cm Performed By: Vanessa Jimenez RDMS, RVT Read By: Anali Montoya M.D. MATERNAL MEDICINE [facility] Radiology Study observation (narrative) [facility] CBC panel Auto (Bld)on 11-23 Erythrocyte distribution width (RBC) [Ratio] 12.0 % Normal 11.5-15.0 [facility] Comment on above: Order Comment: Speci men Type: FLUID SPECIMEN Ordering Facility: [facility] Address: [address] [place] [address] Performed By: #### L [id number] #### [facility] CLIA [id number] [address] [place] [address] [place] [facility] CLIA [id number] [address] [place] [address] [place] #### HPVHRT #### [facility] CLIA [id number] [address] [place] [address] [place] Hematocrit (Bld) [Volume fraction] 37.0 % Normal 36.0-46.0 [facility] Comment on above: Order Comment: Speci men Type: FLUID SPECIMEN Ordering Facility: [facility] Address: [address] [place] [address] Performed By: #### L [id number] #### [facility] CLIA [id number] [address] [place] [address] [place] [facility] CLIA [id number] [address] [place] [address] [place] #### HPVHRT #### [facility] CLIA [id number] [address] [place] [address] [place] MCHC (RBC) [Mass/Vol] 34.9 g/dL Normal 30.5-36.[address] [facility] Comment on above: Order Comment: Speci men Type: FLUID SPECIMEN Ordering Facility: [facility] Address: [address] [place] [address] Performed By: #### L [id number] #### [facility] CLIA [id number] [address] [place] [address] [place] [facility] CLIA [id number] [address] [place] [address] [place] #### HPVHRT #### [facility] CLIA [id number] [address] [place] [address] [place] MCV (RBC) [Entitic vol] 88.3 fL Normal 80.0-100.0 [facility] Comment on above: Order Comment: Speci men Type: FLUID SPECIMEN Ordering Facility: [facility] Address: [address] [place] [address] Performed By: #### L [id number] #### [facility] CLIA [id number] [address] [place] [address] [place] [facility] CLIA [id number] [address] [place] [address] [place] #### HPVHRT #### [facility] CLIA [id number] [address] [place] [address] [place] Nucleated RBC (Bld) [#/Vol] 10*3/uL Normal <0.01 [facility] Comment on above: Order Comment: Speci men Type: FLUID SPECIMEN Ordering Facility: [facility] Address: [address] [place] [address] Performed By: #### L [id number] #### [facility] CLIA [id number] [address] [place] [address] [place] [facility] CLIA [id number] [address] [place] [address] [place] #### HPVHRT #### [facility] CLIA [id number] [address] [place] [address] [place] Platelet mean volume (Bld) [Entitic vol] 10.2 fL Normal 9.0-12.7 [facility] Comment on above: Order Comment: Speci men Type: FLUID SPECIMEN Ordering Facility: [facility] Address: [address] [place] [address] Performed By: #### L [id number] #### [facility] CLIA [id number] [address] [place] [address] [place] [facility] CLIA [id number] [address] [place] [address] [place] #### HPVHRT #### [facility] CLIA [id number] [address] [place] [address] [place] Platelets (Bld) [#/Vol] 211 10*3/uL Normal 150-400 [facility] Comment on above: Order Comment: Speci men Type: FLUID SPECIMEN Ordering Facility: [facility] Address: [address] [place] [address] Performed By: #### L [id number] #### [facility] CLIA [id number] [address] [place] [address] [place] [facility] CLIA [id number] [address] [place] [address] [place] #### HPVHRT #### [facility] CLIA [id number] [address] [place] [address] [place] WBC (Bld) [#/Vol] 6.02 10*3/uL Normal 3.70-11.00 [facility] Comment on above: Order Comment: Speci men Type: FLUID SPECIMEN Ordering Facility: [facility] Address: [address] [place] [address] Performed By: #### L [id number] #### [facility] CLIA [id number] [address] [place] [address] [place] [facility] CLIA [id number] [address] [place] [address] [place] #### HPVHRT #### [facility] CLIA [id number] [address] [place] [address] [place] HBV surface Ag Ser Qlon 10-27 HBV surface Ag Ql (S) Negative Normal Negative [facility] Comment on above: Order Comment: Speci men Type: FLUID SPECIMEN Ordering Facility: [facility] Address: [address] [place] [address] Performed By: #### L [id number] #### [facility] CLIA [id number] [address] [place] [address] [place] [facility] CLIA [id number] [address] [place] [address] [place] #### HPVHRT #### [facility] CLIA [id number] [address] [place] [address] [place] HCV Ab Ser Qlon 11-24-2023 HCV Ab Ql (S) Negative Normal Negative [facility] Comment on above: Order Comment: Speci men Type: BLOOD SPECIMEN Ordering Facility: [facility] Address: [address] [place] [address] Result Comment: The result suggests no evidence of active infection with Hepatitis C virus. Should recent infection be suspected, repeat testing may be considered 4-6 weeks after this draw. Performed By: #### T SPN #### [facility] CLIA [id number] [address] [place] [address] [place] HGB ELECTROPHORESIS FOR EVAL (LAB ORDER)on 11-24-2023 Hemoglobin A (Bld) [Mass fraction] 97.2 % Normal 96.2-98.0 [facility] Comment on above: Order Comment: Speci men Type: FLUID SPECIMEN Ordering Facility: [facility] Address: [address] [place] [address] Performed By: #### L [id number] #### [facility] CLIA [id number] [address] [place] [address] [place] [facility] CLIA [id number] [address] [place] [address] [place] #### HPVHRT #### [facility] CLIA [id number] [address] [place] [address] [place] Hemoglobin A2 (Bld) [Mass fraction] 2.8 % Normal 2.0-3.1 [facility] Comment on above: Order Comment: Speci men Type: FLUID SPECIMEN Ordering Facility: [facility] Address: [address] [place] [address] Performed By: #### L [id number] #### [facility] CLIA [id number] [address] [place] [address] [place] [facility] CLIA [id number] [address] [place] [address] [place] #### HPVHRT #### [facility] CLIA [id number] [address] [place] [address] [place] Hemoglobin Unsp Elph (Bld) [Mass fraction] No abnormal hemoglobin identified. Normal No abnormal hemoglobin identified. [facility] Comment on above: Order Comment: Speci men Type: FLUID SPECIMEN Ordering Facility: [facility] Address: [address] [place] [address] Performed By: #### L [id number] #### [facility] CLIA [id number] [address] [place] [address] [place] [facility] CLIA [id number] [address] [place] [address] [place] #### HPVHRT #### [facility] CLIA [id number] [address] [place] [address] [place] HIV 1+2 Ab IA Qlon 4 HIV 1 and 2 Ab IA.rapid Nom (S/P/Bld) Normal [facility] Comment on above: Order Comment: Speci men Type: FLUID SPECIMEN Ordering Facility: [facility] Address: [address] [place] [address] Result Comment: Test not indicated. Performed By: #### L [id number] #### [facility] CLIA [id number] [address] [place] [address] [place] [facility] CLIA [id number] [address] [place] [address] [place] #### HPVHRT #### [facility] CLIA [id number] [address] [place] [address] [place] HIV 1+2 Ab+HIV1 p24 Ag IA Ql Non-Reactive Normal Nonreactive [facility] Comment on above: Order Comment: Speci men Type: FLUID SPECIMEN Ordering Facility: [facility] Address: [address] [place] [address] Performed By: #### L [id number] #### [facility] CLIA [id number] [address] [place] [address] [place] [facility] CLIA [id number] [address] [place] [address] [place] #### HPVHRT #### [facility] CLIA [id number] [address] [place] [address] [place] HIV immunoassay testing algorithm interpretation (S/P/Bld) [Interp] Normal [facility] Comment on above: Order Comment: Speci men Type: FLUID SPECIMEN Ordering Facility: [facility] Address: [address] [place] [address] Result Comment: No e vidence of HIV-1 or HIV-2 infection. Should recent infection be suspected, repeat testing may be considered 2-3 weeks after this draw. [place] Rev. Code 3701.243(E): This information has been disclosed to you from confidential records protected from disclosure by state law. ???You shall make no further disclosure of this information without the specific, written, and informed release of the individual to whom it pertains or as otherwise permitted by state law. A general authorization for the release of medical or other information is not sufficient for the purpose of the release of HIV test results or diagnoses. Performed By: #### L [id number] #### [facility] [place] [id number] [address] [place] [address] [place] [facility] CLIA [id number] [address] [place] [address] [place] #### HPVHRT #### [facility] CLIA [id number] [address] [place] [address] [place] HbA1c (Bld)on 11-24-2023 Average glucose Estimated from glycated hemoglobin (Bld) [Mass/Vol] 94 mg/dL Normal [facility] Comment on above: Order Comment: Speci men Type: FLUID SPECIMEN Ordering Facility: [facility] Address: [address] [place] [address] Result Comment: eAG: (Estimated average glucose) is a calculated value from HgbA1c and is customer development representative of the average blood glucose level in the last 2-3 month period. Performed By: #### L [id number] #### [facility] IA [id number] [address] [place] [address] [place] [facility] CLIA [id number] [address] [place] [address] [place] #### HPVHRT #### [facility] CLIA [id number] [address] [place] [address] [place] HbA1c (Bld) [Mass fraction] 4.9 % Normal 4.3-5.6 [facility] Comment on above: Order Comment: Speci men Type: FLUID SPECIMEN Ordering Facility: [facility] Address: [address] [place] [address] Result Comment: [place] Diabetes Association guidelines indicate that patients with HgbA1c in the range 5.7-6.4% are at increased risk for development of diabetes, and intervention by lifestyle modification may be beneficial. HgbA1c greater or equal to 6.5% is considered diagnostic of diabetes. Performed By: #### L [id number] #### [facility] CLIA [id number] [address] [place] [address] [place] [facility] CLIA [id number] [address] [place] [address] [place] #### HPVHRT #### [facility] CLIA [id number] [address] [place] [address] [place] RBC PARAMETERS FOR HB IDon 0 11-24-2023 Erythrocyte distribution width (RBC) [Ratio] 12.1 % Normal 11.5-15.0 [facility] Comment on above: Order Comment: Speci men Type: FLUID SPECIMEN Ordering Facility: [facility] Address: [address] [place] [address] Performed By: #### L [id number] #### [facility] CLIA [id number] [address] [place] [address] [place] [facility] CLIA [id number] [address] [place] [address] [place] #### HPVHRT #### [facility] CLIA [id number] [address] [place] [address] [place] Hematocrit (Bld) [Volume fraction] 38.0 % Normal 36.0-46.0 [facility] Comment on above: Order Comment: Speci men Type: FLUID SPECIMEN Ordering Facility: [facility] Address: [address] [place] [address] Performed By: #### L [id number] #### [facility] CLIA [id number] [address] [place] [address] [place] [facility] CLIA [id number] [address] [place] [address] [place] #### HPVHRT #### [facility] CLIA [id number] [address] [place] [address] [place] Hemoglobin (Bld) [Mass/Vol] 12.9 g/dL Normal 11.5-15.5 [facility] Comment on above: Order Comment: Speci men Type: FLUID SPECIMEN Ordering Facility: [facility] Address: [address] [place] [address] Performed By: #### L [id number] #### [facility] CLIA [id number] [address] [place] [address] [place] [facility] CLIA [id number] [address] [place] [address] [place] #### HPVHRT #### [facility] CLIA [id number] [address] [place] [address] [place] MCH (RBC) [Entitic mass] 30.8 pg Normal 26.0-34.0 [facility] Comment on above: Order Comment: Speci men Type: FLUID SPECIMEN Ordering Facility: [facility] Address: [address] [place] [address] Performed By: #### L [id number] #### [facility] CLIA [id number] [address] [place] [address] [place] [facility] CLIA [id number] [address] [place] [address] [place] #### HPVHRT #### [facility] CLIA [id number] [address] [place] [address] [place] MCHC (RBC) [Mass/Vol] 33.9 g/dL Normal 30.5-36.[address] [facility] Comment on above: Order Comment: Speci men Type: FLUID SPECIMEN Ordering Facility: [facility] Address: [address] [place] [address] Performed By: #### L [id number] #### [facility] CLIA [id number] [address] [place] [address] [place] [facility] CLIA [id number] [address] [place] [address] [place] #### HPVHRT #### [facility] CLIA [id number] [address] [place] [address] [place] MCV (RBC) [Entitic vol] 90.7 fL Normal 80.0-100.0 C [facility] Comment on above: Order Comment: Speci men Type: FLUID SPECIMEN Ordering Facility: [facility] Address: [address] [place] [address] Performed By: #### L [id number] #### [facility] CLIA [id number] [address] [place] [address] [place] [facility] CLIA [id number] [address] [place] [address] [place] #### HPVHRT #### [facility] CLIA [id number] [address] [place] [address] [place] RBC (Bld) [#/Vol] 4.19 10*6/uL Normal 3.90-5.20 [facility] Comment on above: Order Comment: Speci men Type: FLUID SPECIMEN Ordering Facility: [facility] Address: [address] [place] [address] Performed By: #### L [id number] #### [facility] CLIA [id number] [address] [place] [address] [place] [facility] CLIA [id number] [address] [place] [address] [place] #### HPVHRT #### [facility] CLIA [id number] [address] [place] [address] [place] RUBELLA IGG ANTIBODYon 11-23 RUBELLA IGG AB, QUAL Positive Normal Positive [facility] Comment on above: Order Comment: Speci men Type: FLUID SPECIMEN Ordering Facility: [facility] Address: [address] [place] [address] Result Comment: The result suggests recent or past exposure to Rubella virus or history of Rubella vaccination. Positive result may also be seen due to presence of passively-transferred antibodies. Please correlate with patient's history. Performed By: #### L [id number] #### [facility] CLIA [id number] [address] [place] [address] [place] [facility] CLIA [id number] [address] [place] [address] [place] #### HPVHRT #### [facility] CLIA [id number] [address] [place] [address] [place] Reagin and Treponema pallidu m IgG and IgM [Interp]on 11-24-2023 T. pallidum IgG+IgM IA Ql (S) Non-Reactive Normal Nonreactive [facility] Comment on above: Order Comment: Speci men Type: FLUID SPECIMEN Ordering Facility: [facility] Address: [address] [place] [address] Performed By: #### L [id number] #### [facility] CLIA [id number] [address] [place] [address] [place] [facility] CLIA [id number] [address] [place] [address] [place] #### HPVHRT #### [facility] CLIA [id number] [address] [place] [address] [place] Reagin+T pallidum IgG+IgM Se rPl-Impon 11-24-2023 Reagin and Treponema pallidum IgG and IgM [Interp] Cannot exclude recent Treponemal infection if specimen collected within 7-10 days after appearance of suspect lesions or 2-3 weeks after an exposure. Clinical correlation is required. Normal [facility] Comment on above: Order Comment: Speci men Type: FLUID SPECIMEN Ordering Facility: [facility] Address: [address] [place] [address] Performed By: #### L [id number] #### [facility] CLIA [id number] [address] [place] [address] [place] [facility] CLIA [id number] [address] [place] [address] [place] #### HPVHRT #### [facility] CLIA [id number] [address] [place] [address] [place] TYPE + SCREEN PRENATALon ABO A Normal [facility] Comment on above: Order Comment: Speci men Type: BLOOD SPECIMEN Ordering Facility: [facility] Address: [address] [place] [address] Performed By: #### T SPN #### [facility] CLIA [id number] [address] [place] [address] [place] Rh Nom (Bld) Positive Normal [facility] Comment on above: Order Comment: Speci men Type: BLOOD SPECIMEN Ordering Facility: [facility] Address: [address] [place] [address] Performed By: #### T SPN #### [facility] CLIA [id number] [address] [place] [address] [place] TYPE AND SCREEN EXPIRATION 11/27/2023 23:59 Normal [facility] Comment on above: Order Comment: Speci men Type: BLOOD SPECIMEN Ordering Facility: [facility] Address: [address] [place] [address] Performed By: #### T SPN #### [facility] CLIA [id number] [address] [place] [address] [place] Bacteria Ur Culton 4 Bacteria identified Cx Nom (U) ORGANISM ID: 1 <10,000 CFU/ml Normal urogenital shaun Normal [facility] Comment on above: Performed By: #### L [id number] #### [facility] CLIA [id number] [address] [place] [address] [place] [facility] CLIA [id number] [address] [place] [address] [place] #### HPVHRT #### [facility] CLIA [id number] [address] [place] [address] [place] C. trachomatis+N. gonorrhoea e DNA KEIKO+probe Ql (Unsp spec)on 11-14-2023 C. trachomatis rRNA KEIKO+probe Ql (Unsp spec) Negative Normal Negative for Chlamydia trachomatis by amplificaton [facility] Comment on above: Order Comment: Speci men Type: FLUID SPECIMEN Ordering Facility: [facility] Address: [address] [place] [address] Performed By: #### L [id number] #### [facility] CLIA [id number] [address] [place] [address] [place] [facility] CLIA [id number] [address] [place] [address] [place] #### HPVHRT #### [facility] CLIA [id number] [address] [place] [address] [place] N. gonorrhoeae rRNA KEIKO+probe Ql (Unsp spec) Negative Normal Negative for Neisseria gonorrhoeae by amplification [facility] Comment on above: Order Comment: Speci men Type: FLUID SPECIMEN Ordering Facility: [facility] Address: [address] [place] [address] Performed By: #### L [id number] #### [facility] CLIA [id number] [address] [place] [address] [place] [facility] CLIA [id number] [address] [place] [address] [place] #### HPVHRT #### [facility] CLIA [id number] [address] [place] [address] [place] HIGH RISK HUMAN PAPILLOMA ALEKSANDR (HPV), PCR FOR DETECTION AND GENOTYPINGon 11-14-2023 HPV 16 Ag Ql (Unsp spec) Not detected Normal Not detec mo [facility] Comment on above: Order Comment: Speci men Type: FLUID SPECIMEN Ordering Facility: [facility] Address: [address] [place] [address] Performed By: #### L [id number] #### [facility] CLIA [id number] [address] [place] [address] [place] [facility] CLIA [id number] [address] [place] [address] [place] #### HPVHRT #### [facility] CLIA [id number] [address] [place] [address] [place] HPV 18 Ag Ql (Unsp spec) Not detected Normal Not detec mo [facility] Comment on above: Order Comment: Speci men Type: FLUID SPECIMEN Ordering Facility: [facility] Address: [address] [place] [address] Performed By: #### L [id number] #### [facility] CLIA [id number] [address] [place] [address] [place] [facility] CLIA [id number] [address] [place] [address] [place] #### HPVHRT #### [facility] CLIA [id number] [address] [place] [address] [place] HPV 31+33+35+39+45+51+52+56+5 8+59+66+68 DNA KEIKO+probe Ql (Cvx) Not detected Normal Not detected [facility] Comment on above: Order Comment: Speci men Type: FLUID SPECIMEN Ordering Facility: [facility] Address: [address] [place] [address] Result Comment: High Risk HPV Other Type includes HPV types 31, 33, 35, 39, 45, 51, 52, 56, 58, 59, 66 and 68. Performed By: #### L [id number] #### [facility] CLIA [id number] [address] [place] [address] [place] [facility] CLIA [id number] [address] [place] [address] [place] #### HPVHRT #### [facility] CLIA [id number] [address] [place] [address] [place] PAP TESTon 11-14-2023 ADEQUACY Satisfactory for interpretation. Normal [facility] Comment on above: Order Comment: Speci men Type: FLUID SPECIMEN Ordering Facility: [facility] Address: [address] [place] [address] Performed By: #### L [id number] #### [facility] CLIA [id number] [address] [place] [address] [place] [facility] CLIA [id number] [address] [place] [address] [place] #### HPVHRT #### [facility] CLIA [id number] [address] [place] [address] [place] CASE REPORT Normal [facility] Comment on above: Order Comment: Speci men Type: FLUID SPECIMEN Ordering Facility: [facility] Address: [address] [place] [address] Result Comment: Gyne cologic Cytology Report Case: [id number] Authorizing Provider: Sarkis Webber APRN.ROVING MACHINE OPERATOR Collected: 11/14/2023 12:13 PM Ordering Location: OB/Gynecology Received: 11/14/2023 04:14 PM First Screen: [place]orc[place], [place], [place], ASCP Specimen: Pap Test, ThinPrep, Cervix Performed By: #### L [id number] #### [facility] CLIA [id number] [address] [place] [address] [place] [facility] CLIA [id number] [address] [place] [address] [place] #### HPVHRT #### [facility] CLIA [id number] [facility] [place] [address] [place] CLINICAL HISTORY, CYTOLOGY, CELLOPHANE TESTER (Indicate Weeks) Normal [facility] Comment on above: Order Comment: Speci men Type: FLUID SPECIMEN Ordering Facility: [facility] Address: [address] [place] [address] Performed By: #### L [id number] #### [facility] CLIA [id number] [address] [place] [address] [place] [facility] CLIA [id number] [address] [place] [address] [place] #### HPVHRT #### [facility] CLIA [id number] [address] [place] [address] [place] FIN[facility]FORMING LAB Normal [facility] Comment on above: Order Comment: Speci men Type: FLUID SPECIMEN Ordering Facility: [facility] Address: [address] [place] [address] Result Comment: Tech nical component, scalemaker screening performed at [facility], [address] [id number] CLIA# [id number] Diagnostic interpretation performed at [facility], [address] [id number] CLIA# [id number] Critical Care Clinical Nurse Specialist: Rhonda Crisostomo M.D. Performed By: #### L [id number] #### [facility] CLIA [id number] [address] [place] [id number] [place] [facility] CLIA [id number] [address] [place] [address] [place] #### HPVHRT #### [facility] CLIA [id number] [address] [place] [address] [place] HPV REFLEX Yes HPV Normal [facility] Comment on above: Order Comment: Speci men Type: FLUID SPECIMEN Ordering Facility: [facility] Address: [address] [place] [address] Performed By: #### L [id number] #### [facility] CLIA [id number] [address] [id number] [place] [facility] CLIA [id number] [address] [place] [address] [place] #### HPVHRT #### [facility] CLIA [id number] [address] [place], [place] [address] [place] INTERPRETATION, CYTOLOGY, CELLOPHANE TESTER Normal [facility] Comment on above: Order Comment: Speci men Type: FLUID SPECIMEN Ordering Facility: [facility] Address: [address] [place] [address] Result Comment: Nega tive for intraepithelial lesion or malignancy. Performed By: #### L [id number] #### [facility] CLIA [id number] [address] [place] [address] [place] [facility] CLIA [id number] [address] [place] [address] [place] #### HPVHRT #### [facility] CLIA [id number] [address] [place], [place] [address] [place] LMP 09/26/2023 Normal [facility] Comment on above: Order Comment: Speci men Type: FLUID SPECIMEN Ordering Facility: [facility] Address: [address] [place] [address] Performed By: #### L [id number] #### [facility] CLIA [id number] [address] [place] [id number] [place] [facility] CLIA [id number] [address] [place] [address] [place] #### HPVHRT #### [facility] CLIA [id number] [address] [place] [address] [place] PAP DISCLAIMER COMMENT The Pap Smear is a screening test for cervical cancer. False negative results occur with all screening tests, emphasizing the need for rescreening at recommended intervals, and clinical correlation. Normal [facility] Comment on above: Order Comment: Speci men Type: FLUID SPECIMEN Ordering Facility: [facility] Address: [address] [place] [address] Performed By: #### L [id number] #### [facility] CLIA [id number] [address] [place] [address] [place] [facility] CLIA [id number] [address] [place] [address] [place] #### HPVHRT #### [facility] CLIA [id number] [address] [place] [address] [place] PAP FOURTH OFFICER COMMENT This specimen has been analyzed by the ThinPrep Imaging System, an automated imaging and review system, which assists the laboratory in evaluating cells on ThinPrep Pap tests. Following automated imaging, selected sánchez from every slide are reviewed by a scalemaker. Normal [facility] Comment on above: Order Comment: Speci men Type: FLUID SPECIMEN Ordering Facility: [facility] Address: [address] [place] [address] Performed By: #### L [id number] #### [facility] CLIA [id number] [address] [place] [address] [place] [facility] CLIA [id number] [address] [place] [address] [place] #### HPVHRT #### [facility] CLIA [id number] [address] [place] [address] [place] POC MOLDER PUNCH ULTRASOUNDon 11-14-19 Indication Viability; confirm cardiac activity Impression Single intrauterine gestational sac, CRL is appropriate for clinical dates, corresponding to LE 07/02/2024 cardiac activity is visualized Recommendations Follow up for NT scan if desired Method Transabdominal ultrasound examination, Transvaginal ultrasound examination De La [place]re . Number of embryos: 1 Dating LMP on: 09/26/2023 GA by LMP 7 w + 0 d LE by LMP: 07/02/2024 Ultrasound examination on: 11/14/2023 GA by U/S based upon: CRL GA by U/S 7 w + 0 d LE by U/S: 07/02/2024 Assigned: based on the LMP, selected on 11/14/2023 Assigned GA 7 w + 0 d Assigned LE: 07/02/2024 Biometry Standard FHR 134 bpm CRL 9.4 mm 7w 0d 84% [facility]lock Assessment Gestational sac: visualized Location: intrauterine Yolk sac: visualized Embryo: visualized CRL 9.4 mm 7w 0d 84% [facility]lock Cardiac activity: present FHR 134 bpm General Evaluation Cardiac activity present. FHR 134 bpm Performed By: Sarkis Webber NP Read By: Sarkis Webber NP MATERNAL MEDICINE [facility] Radiology Study observation (narrative) [facility] US RUQ (GB/PANCREAS)on 01-06 US RUQ (GB/PANCREAS) [place] [address] Patient: ZAN SANTOS Phone#: : [phone] Age: 32 Gender: F Pt. Type: Out Account: [id number] Location: Ordering: [facility] Exam Date: 01/06/2023/7:57 Family Phys: Charge Code: [id number] Physician: [facility] Order #: [id number] Dose#: PROCEDURE: RUQ (GB) ULTRASOUND COMPARISON: None. INDICATIONS: Right upper quadrant pain. FINDINGS: LIVER: Normal. Normal size and echotexture. No significant masses. BILIARY: Normal. Normal appearing gallbladder and biliary tree. Common bile duct diameter 4.8 mm. PANCREAS: Normal. No visible mass, abnormal atrophy, or ductal dilatation. RIGHT KIDNEY: Normal. No mass or obstruction. OTHER: Negative. CONCLUSION: 1. Unremarkable biliary ultrasound. DICTATED BY: SOCORRO TALAVERA MD ON 01/06/2023 AT 13:00 APPROVED BY: SOCORRO TALAVERA MD ON 01/06/2023 AT 13:01 Normal [facility] LIVER FUNCTION/COMMUNITY OUT REACH ONLYon 08-14-2022 Albumin [Mass/Vol] 3.9 g/dL Normal 3.4 - 5.0 [facility] Comment on above: Performed By: #### 2 [id number] #### [facility],[address] [place] [address] ALK PHOS 23 U/L Low 46 - 116 [facility] Comment on above: Performed By: #### 2 [id number] #### [facility],[address] [place] [address] ALT [Catalytic activity/Vol] 49 U/L Normal 14 - 59 [facility] Comment on above: Performed By: #### 2 [id number] #### [facility],[address] [place] [address] AST [Catalytic activity/Vol] 19 U/L Normal 13 - 39 [facility] Comment on above: Performed By: #### 2 [id number] #### [facility],[address] [place] [address] LIVER FUNCTION/COMMUNITY OUTREACH ONLY Normal [facility] Comment on above: Result Comment: LIVE R FUNCTION PANEL/COMMUNITY OUTREACH Performed By: #### 2 [id number] #### [facility],[address] [place], [place] [id number] Protein [Mass/Vol] 6.7 g/dL Normal 6.4 - 8.2 [facility] Comment on above: Performed By: #### 2 [id number] #### [facility],[address] [place], [place] [id number] THYROID PANEL COMMUNITY OUTR EACHon 08-14-2022 FTI 2.1 Normal 1.0 - 4.0 [facility] Comment on above: Performed By: #### 2 [id number] #### [facility],[address] [place], [place] [address] T3u 32 % Normal 24 - 34 [facility] Comment on above: Performed By: #### 2 [id number] #### [facility],[address] [place] [address] T4 [Mass/Vol] 6.7 ug/dL Normal 4.7 - 13.3 [facility] Comment on above: Performed By: #### 2 [id number] #### [facility],[address] [place] [address] TSH Qn 2.91 m[IU]/L Normal 0.35 - 3.74 [facility] Comment on above: Performed By: #### 2 13619 #### [facility],[address] [place] [address] Basophil percentageon 2021 Bilirubin [Mass/Vol] 0.30 mg/dL 0.20-1.00 [facility] Work Phone: Comment on above: For patients on eltr ombopag therapy, use of Dimension [place] TBIL is not recommended. Chloride [Moles/Vol] 105 mmol/L 98-107 [facility] Work Phone: Glucose [Mass/Vol] 97 mg/dL 74-106 [facility] Work Phone: Potassium [Moles/Vol] 3.8 mmol/L 3.5-5.1 [facility] Work Phone: Protein [Mass/Vol] 7.2 g/dL 6.4-8.2 [facility] Work Phone: Sodium [Moles/Vol] 137 mmol/L 136-145 [facility] Work Phone: [phone] Laboratory - Chemistry and C hemistry - challengeon 08-20-2021 ALP [Catalytic activity/Vol] 26 U/L 45-117 [facility] Work Phone: ALT [Catalytic activity/Vol] 28 U/L 13-56 [facility] Work Phone: CO2 [Moles/Vol] 25.0 mmol/L 21.0-32.0 [facility] Work Phone: Free T4 [Mass/Vol] 0.83 ng/dL 0.76-1.46 [facility] Work Phone: Globulin (S) [Mass/Vol] 3.5 g/dL 2.2-4.2 [facility] Work Phone: Urea nitrogen/Creatinine [Mass ratio] 23.9 mg/mg 10-20 [facility] Work Phone: No Panel Informationon 08-20 Dehydroepiandrosterone Sulfate 108.0 ug/dL 84.8-378.0 [facility] Work Phone: Estimated GFR (MDRD) Amer 134 mL/min >60 [facility] Work Phone: Comment on above: GFR Calc Estimated GFR (MDRD) Non-Af Amer 111 mL/min >60 [facility] Work Phone: Comment on above: Non- GFR Calc Free Triiodothyronine (T3) pg/dL 3.0 pg/mL 2.18-3.98 [facility] Work Phone: Insulin Level 47.0 mU/L 2.6-37.6 [facility] Work Phone: Thyroid Stimulating Hormone (TSH) 3.32 uIU/mL 0.358-3.74 [facility] Work Phone: Vitamin D 25-Hydroxy 30.8 ng/mL [facility] Work Phone: Comment on above: Vitamin D 25(OH) Sta tus Range Deficiency <20 ng/mL (50nmol/L) Insufficiency 20 - 30 ng/mL (50 - 75 nmol/L) Sufficiency 30 - 100 ng/mL (75 - 250 nmol/L) Toxicity >100 ng/mL (>250 nmol/L) Serum or plasma albumin neal urement (mass/volume)on 08-20-2021 Albumin [Mass/Vol] 3.7 g/dL 3.2-5.0 [facility] Work Phone: Serum or plasma albumin/glob ulin mass ratioon 08-20-2021 Albumin/Globulin [Mass ratio] 1.1 {ratio} 0.9-2.4 [facility] Work Phone: Serum or plasma calcium neal urement (mass/volume)on 08-20-2021 Calcium [Mass/Vol] 8.8 mg/dL 8.5-10.1 [facility] Work Phone: Serum or plasma creatinine m easurement (mass/volume)on 08-20-2021 Creatinine [Mass/Vol] 0.67 mg/dL 0.55-1.02 [facility] Work Phone: Comment on above: The validity of the calculated GFR & GFRAA in patients over 70 years has not been determined. Clinical correlation is essential. Serum or plasma estradiol (E 2) measurement (mass/volume)on 08-20-2021 E2 [Mass/Vol] 113.5 pg/mL [facility] Work Phone: Comment on above: NORMAL REFERENCE RAN GES FEMALE FOLLICULAR 21.4 - 164.8 pg/mL MID-CYCLE PEAK 49.9 - 367.2 pg/mL LUTEAL 40.2 - 259.0 pg/mL POST-MENOPAUSAL ON MHT <11.0 - 462.1 pg/mL NOT ON MHT <11.0 - 58.3 pg/mL MALE <11.0 - 52.5 pg/mL NOTE:SIEMENS HAS CONFIRMED THE DRUG FULVETRANT (FASLODEX) MAY CAUSE FALSELY ELEVATED ESTRADIOL RESULTS WHEN USING THIS TEST METHOD. IF PATIENT IS TAKING FULVESTRANT AN ALTERNATIVE METHOD SHOULD BE USED TO DETERMINE ESTRADIOL CONCENTRATION. Serum or plasma progesterone measurement (mass/volume)on 08-20-2021 Progesterone [Mass/Vol] 15.50 ng/mL See Comment [facility] Work Phone: Comment on above: Progesterone Referen ce Table: UNITS Female: Follicular 0.15 - 1.40 ng/mL Luteal 3.34 - 25.56 ng/mL Mid-luteal 4.44 - 28.03 ng/mL Postmenopausal 0.0 - 0.73 ng/mL : 1st Trimester 11.22 - 90.00 ng/mL 2nd Trimester 25.55 - 89.40 ng/mL 3rd Trimester 48.40 -422.50 ng/mL Serum or plasma sex hormone binding globulin measurement (moles/volume)on 08-20-2021 Sex hormone binding globulin [Moles/Vol] 24.6 nmol/L 24.6-122.0 [facility] Work Phone: Comment on above: Performed at: [address] [id number] Director: Santy James PhD, Phone: [phone] Serum or plasma urea nitroge n measurement (mass/volume)on 08-20-2021 Urea nitrogen [Mass/Vol] 16 mg/dL 7-18 [facility] Work Phone: Thin prep Papanicolaou smear with manual screeningon 08-20-2021 Thin prep Papanicolaou smear with manual screening 13 U/L 15-37 [facility] Work Phone: Thin prep Papanicolaou smear with manual screening 7 5-15 [facility] Work Phone: Whole blood hemoglobin A1c/t otal hemoglobin ratio (mass fraction)on 08-20-2021 HbA1c (Bld) [Mass fraction] 5.3 % 3.8-5.6 [facility] Work Phone: Comment on above: Normal < 5.7 % Predi abetic 5.7 - 6.4 % Diabetic >or= 6.5 % Please note range changes. 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 Consent to share information with FTC team, OB and account maintenance representative signed. Pt plans [place] [facility]. Malter Operator is Dr Mu Fitzgerald. male fetus- name is not yet confirmed Method of feeding: breast Ultrasound findings today: See report in procedures for details. Reinforced continued OB care with [facility] [employer] Authentication Interface Message Text Consultation has been requested by Keith Reason for Consult hydronephrosis History: (Detailed history is noted in the genetic counselor's note) Please refer to the ultrasound report for full details. Genetic Counseling Summary I discussed with the patient the following issues: 1. Noninvasive versus invasive methods for detection of aneuploidy 2. Follow up ultrasound examinations as scheduled Follow Up She expressed understanding of the above information. Recommendations and Treatment Center Plan of Care: Diagnosis: UTD A2-3, Bilateral hydronephrosis with hydroureter Declined aneuploidy screening and invasive testing. Plan: 1. Continued obstetrical care with her primary repairer engine production is recommended. 2. Follow up q4 weeks to evaluate biometric parameters and renals. These are planned with the Treatment Center. 3. surveillance as follows: as clinically indicated. 4. consultation with Pediatric Urology will be arranged. 5. Delivery is appropriate at your local institution with follow up as indicated. 6. Mode and timing of delivery are based on the usual obstetrical indications. 7. Pediatric provider to determine if additional evaluations are recommended prior to discharge. 8. Amoxicillin prophylaxis, 10 mg/kg per day. 9. Renal ultrasound and consultation with Pediatric Urology within 1 week after . Please call [facility] at [phone]. 10. Possible additional imaging and follow up as per Pediatric Urology. 11. Other follow up as clinically indicated. The total patient time of the visit was 45 minutes, of which greater than 50% of the time was spent counseling and coordinating care. Discussion topics are listed above. Ilsa Gong MD [facility] Progress Noteon 02-28-2020 [employer] Interface Message Text Dating and hx for consult [facility] Vital Signs Date Time Vital Sign Value Performing Clinician Facility 08-16-2024 09:51-0400 Body height 162.6 cm Amelia Howard MD Work Phone: [facility] 08-16-2024 09:51-0400 Body mass index (BMI) [Ratio] 32.61 kg/m2 Amelia Howard MD Work Phone: [facility] 08-16-2024 09:51-0400 Body weight 86.18 kg Amelia Howard MD Work Phone: [facility] 08-16-2024 09:51-0400 Diastolic blood pressure 70 mm[Hg] Amelia Howard MD Work Phone: [facility] 08-16-2024 09:51-0400 Heart rate 76 /min Amelia Howard MD Work Phone: [facility] 08-16-2024 09:51-0400 Respiratory rate 14 /min Amelia Howard MD Work Phone: [facility] 08-16-2024 09:51-0400 Systolic blood pressure 110 mm[Hg] Amelia Howard MD Work Phone: [facility] 07-26-2024 10:28-0400 Body mass index (BMI) [Ratio] 32.64 kg/m2 Amelia Howard MD Work Phone: [facility] 07-26-2024 10:28-0400 Body weight 84.91 kg Amelia Howard MD Work Phone: [facility] 07-26-2024 10:28-0400 Diastolic blood pressure 72 mm[Hg] Amelia Howard MD Work Phone: [facility] 07-26-2024 10:28-0400 Systolic blood pressure 110 mm[Hg] Amelia Howard MD Work Phone: [facility] 07-06-2024 12:08-0400 Diastolic blood pressure 81 mm[Hg] Dr. Mu Fitzgerald MD Work Phone: [facility] 07-06-2024 12:08-0400 Heart rate 89 /min Dr. Mu Fitzgerald MD Work Phone: [facility] 07-06-2024 12:08-0400 Respiratory rate 16 /min Dr. Mu Fitzgerald MD Work Phone: [facility] 07-06-2024 12:08-0400 SaO2% (BldA) [Mass fraction] 98 % Dr. Mu Fitzgerald MD Work Phone: [facility] 07-06-2024 12:08-0400 Systolic blood pressure 119 mm[Hg] Dr. Mu Fitzgerald MD Work Phone: [facility] 07-06-2024 04:45-0400 Body temperature 97.6 [degF] Dr. Mu Fitzgerald MD Work Phone: [facility] 07-05-2024 07:22-0400 Body height 162.[address] Mu Fitzgerald MD Work Phone: [facility] 07-05-2024 07:22-0400 Body mass index (BMI) [Ratio] 35.3 kg/m2 Dr. Mu Fitzgerald MD Work Phone: [facility] 07-05-2024 07:22-0400 Body weight 93.[address] Mu Fitzgerald MD Work Phone: [facility] 07-02-2024 10:51-0400 Body mass index (BMI) [Ratio] 35.81 kg/m2 Amelia Howard MD Work Phone: [facility] 07-02-2024 10:51-0400 Body weight 93.17 kg Amelia Howard MD Work Phone: [facility] 07-02-2024 10:51-0400 Diastolic blood pressure 64 mm[Hg] Amelia Howard MD Work Phone: [facility] 07-02-2024 10:51-0400 Systolic blood pressure 100 mm[Hg] Amelia Howard MD Work Phone: [facility] 06-24-2024 10:30-0400 Body mass index (BMI) [Ratio] 35.74 kg/m2 Shiv Mckeon MD Work Phone: [facility] 06-24-2024 10:30-0400 Body weight 92.99 kg Shiv Mckeon MD Work Phone: [facility] 06-24-2024 10:30-0400 Diastolic blood pressure 80 mm[Hg] Shiv Mckeon MD Work Phone: [facility] 06-24-2024 10:30-0400 Systolic blood pressure 120 mm[Hg] Shiv Mckeon MD Work Phone: [facility] 06-11-2024 13:38-0400 Body mass index (BMI) [Ratio] 34.87 kg/m2 Amelia Howard MD Work Phone: [facility] 06-11-2024 13:38-0400 Body weight 90.72 kg Amelia Howard MD Work Phone: [facility] 06-11-2024 13:38-0400 Diastolic blood pressure 70 mm[Hg] Amelia Howard MD Work Phone: [facility] 06-11-2024 13:38-0400 Systolic blood pressure 110 mm[Hg] Amelia Howard MD Work Phone: [facility] 06-04-2024 09:57-0400 Body mass index (BMI) [Ratio] 35.5 kg/m2 Amelia Howard MD Work Phone: [facility] 06-04-2024 09:57-0400 Body weight 92.35 kg Amelia Howard MD Work Phone: [facility] 06-04-2024 09:57-0400 Diastolic blood pressure 72 mm[Hg] Amelia Howard MD Work Phone: [facility] 06-04-2024 09:57-0400 Systolic blood pressure 110 mm[Hg] Amelia Howard MD Work Phone: [facility] 05-19-2024 10:09-0400 Body mass index (BMI) [Ratio] 34.87 kg/m2 Sara Call MD Work Phone: [facility] 05-19-2024 10:09-0400 Body weight 90.72 kg Sara Call MD Work Phone: [facility] 05-19-2024 10:09-0400 Diastolic blood pressure 70 mm[Hg] Sara Call MD Work Phone: [facility] 05-19-2024 10:09-0400 Systolic blood pressure 126 mm[Hg] Sara Call MD Work Phone: [facility] 05-13-2024 10:57-0400 Body height 162.56 cm Zulma Bond LPN [facility], [facility].; [facility]. 05-13-2024 10:57-0400 Body mass index (BMI) [Ratio] 33.99 kg/m2 Zulma Bond LPN [facility], [facility].; [place] [employer] [facility], [facility]. 05-13-2024 10:57-0400 Body surface area Derived from formula 1.95 m2 Zulma Bond LPN [facility], [facility].; [facility], [facility]. 05-13-2024 10:57-0400 Body temperature 97.7 [degF] Zulma Bond LPN [facility], [facility].; [employer]. Comment on above: Method: Tympanic 05-13-2024 10:57-0400 Body weight 89.81 kg Zulma Bond LPN [facility], [facility].; [place] [employer]. 05-13-2024 10:57-0400 Diastolic blood pressure 76 mm[Hg] Zulma Bond LPN [facility], [facility].; [employer]. Comment on above: Patient Position: Sitting; Cuff Location : Left Arm; Cuff Size: Standard 05-13-2024 10:57-0400 Heart rate 102 /min Zulma Bond LPN [facility], [facility].; [employer]. Comment on above: Pattern: Regular 05-13-2024 10:57-0400 Inhaled oxygen concentration 21 % Zulma Bond LPN [facility], [facility].; [employer]. Comment on above: Room air 05-13-2024 10:57-0400 SaO2% (BldA) [Mass fraction] 97 % Zulma Bond LPN [facility], [facility].; [employer]. 05-13-2024 10:57-0400 Systolic blood pressure 113 mm[Hg] Zulma Bond LPN [facility], [facility].; [employer]. Comment on above: Patient Position: Sitting; Cuff Location : Left Arm; Cuff Size: Standard 05-06-2024 10:39-0400 Body mass index (BMI) [Ratio] 34.7 kg/m2 Shiv Mckeon MD Work Phone: [facility] 05-06-2024 10:39-0400 Body weight 90.27 kg Shiv Mckeon MD Work Phone: [facility] 05-06-2024 10:39-0400 Diastolic blood pressure 62 mm[Hg] Shiv Mckeon MD Work Phone: [facility] 05-06-2024 10:39-0400 Systolic blood pressure 118 mm[Hg] Shiv Mckeon MD Work Phone: [facility] 04-23-2024 10:51-0500 Body mass index (BMI) [Ratio] 34.66 kg/m2 Amelia Howard MD Work Phone: [facility] 04-23-2024 10:51-0500 Body weight 90.17 kg Amelia Howard MD Work Phone: [facility] 04-23-2024 10:51-0500 Diastolic blood pressure 72 mm[Hg] Amelia Howard MD Work Phone: [facility] 04-23-2024 10:51-0500 Systolic blood pressure 110 mm[Hg] Amelia Howard MD Work Phone: [facility] 03-31-2024 14:07-0500 Body mass index (BMI) [Ratio] 34.45 kg/m2 Alexandra Haro MD Work Phone: [facility] 03-31-2024 14:07-0500 Body weight 89.63 kg Alexandra Haro MD Work Phone: [facility] 03-31-2024 14:07-0500 Diastolic blood pressure 62 mm[Hg] Alexandra Haro MD Work Phone: [facility] 03-31-2024 14:07-0500 Systolic blood pressure 100 mm[Hg] Alexandra Haro MD Work Phone: [facility] 03-26-2024 10:05-0500 Body mass index (BMI) [Ratio] 33.83 kg/m2 Verena Garcia MD Work Phone: [facility] 03-26-2024 10:05-0500 Body weight 88 kg Verena Garcia MD Work Phone: [facility] 03-26-2024 10:05-0500 Diastolic blood pressure 68 mm[Hg] Verena Garcia MD Work Phone: [facility] 03-26-2024 10:05-0500 Systolic blood pressure 112 mm[Hg] Verena Garcia MD Work Phone: [facility] 03-01-2024 10:55-0500 Body height 162.56 cm Tierney Jason MA [facility].; [employer] [facility]. 03-01-2024 10:55-0500 Body mass index (BMI) [Ratio] 33.49 kg/m2 Tierney Jason MA [facility].; [facility]. 03-01-2024 10:55-0500 Body surface area Derived from formula 1.94 m2 Tierney Jason MA [facility].; [facility]. 03-01-2024 10:55-0500 Body weight 88.51 kg Tierney Jason MA [facility].; [place] [facility]. 03-01-2024 10:55-0500 Diastolic blood pressure 76 mm[Hg] Tierney Jason MA [facility].; [employer] [facility]. Comment on above: Patient Position: Sitting; Cuff Location : Left Arm; Cuff Size: Standard 03-01-2024 10:55-0500 Heart rate 78 /min Tierney Jason MA [facility].; [employer]. Comment on above: Pattern: Regular 03-01-2024 10:55-0500 Inhaled oxygen concentration 21 % Tierney Jason MA [facility].; [employer]. Comment on above: Room air 03-01-2024 10:55-0500 SaO2% (BldA) [Mass fraction] 100 % Tierney Jason MA [facility].; [facility]. 03-01-2024 10:55-0500 Systolic blood pressure 111 mm[Hg] Tierney Jason MA [facility].; [facility]. Comment on above: Patient Position: Sitting; Cuff Location : Left Arm; Cuff Size: Standard 02-26-2024 10:08-0500 Body mass index (BMI) [Ratio] 33.65 kg/m2 Shiv Mckeon MD Work Phone: [facility] 02-26-2024 10:08-0500 Body weight 87.54 kg Shiv Mckeon MD Work Phone: [facility] 02-26-2024 10:08-0500 Diastolic blood pressure 82 mm[Hg] Shiv Mckeon MD Work Phone: [facility] 02-26-2024 10:08-0500 Systolic blood pressure 116 mm[Hg] Shiv Mckeon MD Work Phone: [facility] 01-16-2024 14:30-0500 Body mass index (BMI) [Ratio] 33.83 kg/m2 Sarkis Hacaterina MATCHBOOK MAKER.ROVING MACHINE OPERATOR Work Phone: [facility] 01-16-2024 14:30-0500 Body weight 88 kg Sarkis Haury MATCHBOOK MAKER.ROVING MACHINE OPERATOR Work Phone: [facility] 01-16-2024 14:30-0500 Diastolic blood pressure 70 mm[Hg] Sarkis Haury MATCHBOOK MAKER.ROVING MACHINE OPERATOR Work Phone: [facility] 01-16-2024 14:30-0500 Systolic blood pressure 120 mm[Hg] Sarkis Haury MATCHBOOK MAKER.ROVING MACHINE OPERATOR Work Phone: [facility] 12-19-2023 09:06-0400 Body mass index (BMI) [Ratio] 33.65 kg/m2 Jeanna Ferrera MATCHBOOK MAKER.CNM Work Phone: [facility] 12-19-2023 09:06-0400 Body weight 87.54 kg Jeanna Ferrera MATCHBOOK MAKER.CNM Work Phone: [facility] 12-19-2023 09:06-0400 Diastolic blood pressure 72 mm[Hg] Jeanna Plotts MATCHBOOK MAKER.CNM Work Phone: [facility] 12-19-2023 09:06-0400 Systolic blood pressure 112 mm[Hg] Jeanna Addisonts MATCHBOOK MAKER.CNM Work Phone: [facility] 11-14-2023 11:11-0400 Body height 161.3 cm Sarkis Haury MATCHBOOK MAKER.ROVING MACHINE OPERATOR Work Phone: [facility] 11-14-2023 11:11-0400 Body mass index (BMI) [Ratio] 33.48 kg/m2 Sarkis Haury MATCHBOOK MAKER.ROVING MACHINE OPERATOR Work Phone: [facility] 11-14-2023 11:11040 Body weight 87.09 kg Sarkishima Rayury MATCHBOOK MAKER.ROVING MACHINE OPERATOR Work Phone: [facility] 11-14-2023 11:11-0400 Diastolic blood pressure 68 mm[Hg] Sarkis Haury MATCHBOOK MAKER.ROVING MACHINE OPERATOR Work Phone: [facility] 11-14-2023 11:11-0400 Systolic blood pressure 112 mm[Hg] Sarkis Haury MATCHBOOK MAKER.ROVING MACHINE OPERATOR Work Phone: [facility] 12-25-2022 09:54-0400 Body height 162.56 cm Zulma Bond LPN [facility], [facility].; [facility], [facility]. 12-25-2022 09:54-0400 Body mass index (BMI) [Ratio] 31.75 kg/m2 Zulma Bond LPN [facility] [employer], [facility]. 12-25-2022 09:54-0400 Body surface area Derived from formula 1.89 m2 Zulma Bond LPN [facility], [facility].; [facility], [facility]. 12-25-2022 09:54-0400 Body temperature 96.9 [degF] Zulma Bond LPN [facility], [facility].; [facility], [facility]. Comment on above: Method: Tympanic 12-25-2022 09:54-0400 Body weight 83.92 kg Zulma Bond LPN [facility], [facility] 12-25-2022 09:54-0400 Diastolic blood pressure 89 mm[Hg] Zulma Varun MARTE [place] [employer] [facility], [facility] [place], [employer]. Comment on above: Patient Position: Sitting; Cuff Location : Left Arm; Cuff Size: Standard 12-25-2022 09:54-0400 Heart rate 112 /min Zulma Bond LPN [place] [employer] [facility], [facility] [place], [employer]. Comment on above: Pattern: Regular 12-25-2022 09:54-0400 Systolic blood pressure 122 mm[Hg] Zulma Varun MARTE [place] [employer] [place], [employer]. Comment on above: Patient Position: Sitting; Cuff Location : Left Arm; Cuff Size: Standard 08-01-2017 08:40-0400 Body height 162.56 cm Rachel K Mutersbaugh REIMBURSEMENT LIAISON [place] [employer] [facility], [facility].; [employer] 08-01-2017 08:40-0400 Body mass index (BMI) [Ratio] 27.29 kg/m2 Rachel K Mutersbaugh REIMBURSEMENT LIAISON [place] [employer] [facility], [facility] [employer] 08-01-2017 08:40-0400 Body surface area Derived from formula 1.77 m2 Rachel K Mutersbaugh REIMBURSEMENT LIAISON [place] [employer] [facility], [facility].; [employer] 08-01-2017 08:40-0400 Body temperature 98.2 [degF] Rachel K Mutersbaugh REIMBURSEMENT LIAISON [place] [employer] 08-01-2017 08:40-0400 Body weight 72.12 kg Rachel K Mutersbaugh REIMBURSEMENT LIAISON [place] [employer] [place], [employer]. 08-01-2017 08:40-0400 Diastolic blood pressure 73 mm[Hg] Rachel K Mutersbaugh REIMBURSEMENT LIAISON [place] [employer] [place], [employer]. Comment on above: Patient Position: Sitting; Cuff Location : Left Arm; Cuff Size: Standard 08-01-2017 08:40-0400 Heart rate 82 /min Rachel K Mutersbaugh REIMBURSEMENT LIAISON [place] [employer]. Comment on above: Pattern: Regular 08-01-2017 08:40-0400 Inhaled oxygen concentration 21 % Rachel Farfanurban TAYLORN [employer].; [employer]. Comment on above: Room air 08-01-2017 08:40-0400 SaO2% (BldA) [Mass fraction] 97 % Rachelrima Farfanurban TAYLORN [place] [employer]. 08-01-2017 08:40-0400 Systolic blood pressure 122 mm[Hg] Rachel Inna Farfanurban REIMBURSEMENT LIAISON [employer].; [employer]. Comment on above: Patient Position: Sitting; Cuff Location : Left Arm; Cuff Size: Standard 12-19-2011 18:14-0400 Body height 162.56 cm Froilan Metcalf MD Work Phone: [employer].; [employer]. 12-19-2011 18:14-0400 Body mass index (BMI) [Percentile] Per age and sex 53 % Froilan Metcalf MD Work Phone: [employer].; [employer]. 12-19-2011 18:14-0400 Body mass index (BMI) [Ratio] 21.8 kg/m2 Froilan Metcalf MD Work Phone: [employer].; [employer]. 12-19-2011 18:14-0400 Body surface area Derived from formula 1.61 m2 Froilan Metcalf MD Work Phone: [employer].; [employer]. 12-19-2011 18:14-0400 Body weight 57.61 kg Froilan Metcalf MD Work Phone: [employer].; [employer]. 12-19-2011 18:14-0400 Diastolic blood pressure 80 mm[Hg] Froilan Metcalf MD Work Phone: [employer].; [employer]. Comment on above: Patient Position: Sitting; Cuff Location : Left Arm; Cuff Size: Standard 12-19-2011 18:14-0400 Heart rate 78 /min Froilan Metcalf MD Work Phone: [facility].; [facility]. Comment on above: Pattern: Regular 12-19-2011 18:14-0400 Systolic blood pressure 116 mm[Hg] Froilan Metcalf MD Work Phone: [facility].; [facility]. Comment on above: Patient Position: Sitting; Cuff Location : Left Arm; Cuff Size: Standard Encounters Encounter Date Encounter Type Care Provider Facility Start: 08-26-2024 ambulatory Amelia Howard Facility:[facility] Start: 08-23-2024 Encounter for other preprocedural examination Amelia Howard [facility] Start: 08-16-2024 End: 08-16-2024 Patient encounter procedure Amelia Howard MD Work Phone: OB/Gynecology Comment on above: Request for steriliz ation (Primary Dx); Visit for pre-operative examination Start: 08-16-2024 End: 08-16-2024 Preprocedural examination done Amelia Howard MD Work Phone: [facility] Work Phone: Start: 08-16-2024 End: 08-16-2024 [facility] Facility:[facility] Start: 07-26-2024 End: 07-26-2024 Patient encounter procedure Amelia Howard MD Work Phone: OB/Gynecology Comment on above: state (HC C) (Primary Dx); Request for sterilization Start: 07-26-2024 End: 07-26-2024 [facility] Facility:[facility] Start: 07-05-2024 End: 07-05-2024 ambulatory Amelia Howard MD Work Phone: OB/Gynecology Start: 07-05-2024 End: 07-06-2024 Evaluation and management of inpatient Dr. Amelia Howard DO -[facility] Work Phone: Start: 07-02-2024 End: 07-02-2024 ambulatory [facility] Facility:[facility] Start: 07-02-2024 End: 07-02-2024 Patient encounter procedure Amelia Howard MD Work Phone: OB/Gynecology Comment on above: Anemia complicating , third trimester (HCC) (Primary Dx); 40 weeks gestation of (HCC); Obesity in , antepartum (HCC) Start: 06-24-2024 End: 06-24-2024 Patient encounter procedure Shiv Mckeon MD Work Phone: OB/Gynecology Comment on above: Anemia complicating , third trimester (HCC) (Primary Dx); Obesity in , antepartum (HCC) Start: 06-24-[facility] Start: 06-22-2024 End: 06-22-2024 ambulatory Nancy Calvillo MA [facility] Start: 06-22-2024 End: 06-22-2024 Patient encounter procedure Nancy Calvillo MA [facility] Comment on above: Population Health Na vigation Outreach (Ob/peds) Start: 06-18-2024 End: 06-18-2024 [facility] Start: 06-11-2024 End: 06-11-2024 Patient encounter procedure Amelia Howard MD Work Phone: OB/Gynecology Comment on above: Obesity in , antepartum (HCC) (Primary Dx); 37 weeks gestation of (HCC); Anemia complicating , third trimester (HCC); Encounter for supervision of other normal in third trimester (HCC) Start: 06-11-2024 End: 06-11-2024 [facility] Start: 06-07-2024 End: 08-07-2024 Follow-up encounter Amelia Howard MD Work Phone: OB/Gynecology Start: 06-04-2024 End: 06-04-2024 [facility] Start: 06-04-2024 End: 06-04-2024 Patient encounter procedure Amelia Howard MD Work Phone: OB/Gynecology Comment on above: Obesity in , antepartum (HCC) (Primary Dx); 36 weeks gestation of (HCC); Anemia complicating , third trimester (HCC) Start: 05-19-2024 End: 05-19-2024 Patient encounter procedure Sara Call MD Work Phone: OB/Gynecology Comment on above: Encounter for superv ision of other normal in third trimester (Primary Dx); Anemia complicating , third trimester; Obesity in , antepartum; 33 weeks gestation of Start: 05-19-2024 End: 05-19-2024 [facility] Facility:[facility] Start: 05-13-2024 End: 05-13-2024 Office outpatient visit 15 minutes Froilan Metcalf MD [facility] Phone[facility] Start: 05-13-2024 Review Froilan norton MD Work Phone: [facility] Start: 05-06-2024 End: 05-06-2024 [facility] Facility:[facility] Start: 05-06-2024 End: 05-06-2024 Patient encounter procedure Shiv Mckeon MD Work Phone: OB/Gynecology Comment on above: Encounter for superv ision of other normal in third trimester (Primary Dx); 31 weeks gestation of ; Anemia complicating , third trimester Start: 05-03-2024 End: 07-03-2024 Follow-up encounter Verena Garcia MD Work Phone: OB/Gynecology Start: 04-30-2024 End: 04-30-2024 [facility] Facility:[facility] Start: 04-26-2024 End: 06-26-2024 Follow-up encounter Verena Garcia MD Work Phone: OB/Gynecology Start: 04-23-2024 End: 04-23-2024 Patient encounter procedure Amelia Howard MD Work Phone: OB/Gynecology Comment on above: Encounter for superv ision of other normal in third trimester (Primary Dx); 30 weeks gestation of ; Request for sterilization Start: 04-23-2024 End: 04-23-2024 ambulatory [facility] Facility:[facility] Start: 03-31-2024 End: 03-31-2024 ambulatory [facility] Facility:[facility] Start: 03-31-2024 End: 03-31-2024 Office outpatient visit 15 minutes Alexandra Haro MD Work Phone: OB/Gynecology Comment on above: 26 weeks gestation o f (Primary Dx); Vaginal odor; Encounter for supervision of other normal in second trimester Start: 03-26-2024 End: 03-26-2024 [facility] Facility:[facility] Start: 03-26-2024 End: 03-26-2024 Patient encounter procedure Verena Garcia MD Work Phone: OB/Gynecology Comment on above: 26 weeks gestation o f (Primary Dx); Screening for diabetes mellitus; Encounter for supervision of other normal in second trimester Start: 03-08-2024 End: 03-08-2024 Medication Froilan Metcalf MD Work Phone: [facility] Start: 03-01-2024 End: 03-01-2024 Office outpatient visit 15 minutes Froilan Metcalf MD Work Phone[facility] Start: 02-26-2024 End: 02-26-2024 ambulatory SARA CALL Facility:[facility] Start: 02-26-2024 End: 02-26-2024 Patient encounter procedure Shiv Mckeon MD Work Phone: OB/Gynecology Comment on above: Encounter for superv ision of other normal in second trimester (Primary Dx); 21 weeks gestation of Encounter for routin e screening for malformation using ultrasonics (Primary Dx); Obesity in , antepartum; 21 weeks gestation of ; Class 1 obesity due to excess calories with body mass index (BMI) of 33.0 to 33.9 in adult, unspecified whether serious comorbidity present; Maternal obesity syndrome in second trimester Start: 01-16-2024 End: 01-16-2024 [facility] Facility:[facility] Start: 01-16-2024 End: 01-16-2024 Patient encounter procedure Sarkis Webber APRN.CNP Work Phone: OB/Gynecology Comment on above: Encounter for superv ision of other normal in second trimester (Primary Dx); 16 weeks gestation of ; Obesity affecting in second trimester, unspecified obesity type Start: 12-19-2023 End: 12-19-2023 [facility] Facility:[facility] Start: 12-19-2023 End: 12-19-2023 Patient encounter procedure Jeanna Ferrera APRN.CNM Work Phone: OB/Gynecology Comment on above: Encounter for superv ision of other normal in first trimester (Primary Dx); 12 weeks gestation of ; Nausea Encounter for antena chris screening for malformation using ultrasound (Primary Dx); 12 weeks gestation of ; Encounter for (NT) nuchal translucency scan Start: 11-24-2023 End: 11-24-2023 [facility] Facility:[facility] Start: 11-14-2023 End: 11-14-2023 [facility] Start: 11-14-2023 End: 11-14-2023 Patient encounter procedure Sarkis Webber APRN.ROVING MACHINE OPERATOR Work Phone: OB/Gynecology Comment on above: Encounter for superv ision of other normal in first trimester (Primary Dx); 7 weeks gestation of ; with uncertain dates in first trimester; Encounter for screening for malignant neoplasm of cervix; Special screening examination for human papillomavirus (HPV); History of headache; Obesity affecting in first trimester, unspecified obesity type Start: 01-06-2023 End: 01-06-2023 Orders Froilan Metcalf MD Work Phone: [facility] Start: 01-06-2023 End: 01-06-2023 [facility] Start: 12-25-2022 End: 12-25-2022 Office outpatient visit 15 minutes Froilan Metcalf MD Work Phone: [facility] Start: 08-14-2022 End: 08-14-2022 [facility] Start: 08-20-2021 End: 08-20-2021 Patient encounter procedure [facility] Start: 10-08-2019 End: 10-08-2019 Historical Summary Froilan Metcalf MD Work Phone: [employer] Start: 08-01-2017 End: 08-01-2017 Office outpatient new 20 minutes Froilan Metcalf MD Work Phone: [employer] Start: 04-13-2012 End: 04-13-2012 Medication Froilan Metcalf MD Work Phone: [employer] Start: 12-19-2011 End: 12-19-2011 Patient encounter procedure Froilan Metcalf MD Work Phone: [employer] Procedures Date Procedure Procedure Detail Performing Clinician Start: 07-05-[address] Mu Fitzgerald MD Work Phone: Start: 07-05-2024 Serologic test for syphilis Dr. Mu Fitzgerald MD Work Phone: Start: 07-02-2024 Urnls dip stick/tabl et rgnt non-auto w/o micrscp Amelia Howard MD Work Phone: Start: 06-24-2024 Urnls dip stick/tabl et rgnt non-auto w/o micrscp Shiv Mckeon MD Work Phone: Start: 06-11-2024 Urnls dip stick/tabl et rgnt non-auto w/o micrscp Amelia Howard MD Work Phone: Start: 06-04-2024 Urnls dip stick/tabl et rgnt non-auto w/o micrscp Amelia Howard MD Work Phone: Start: 03-01-2024 End: 03-01-2024 No Known Past Surgical History Tierney Jason MA Start: 02-26-2024 Us preg uterus after 1st trimest 1/ gestation Sara Call MD Work Phone: Start: 12-19-2023 Us nuchal translucency 1st gestation Sarkis Webber APRN.CNP Work Phone: Start: 11-24-2023 Antibody screen MU VERDUZCO Comment on above: Order Comment: Speci men Type: BLOOD SPECIMEN Ordering Facility: [facility] Address: [address] [place] [address] Performed By: #### T SPN #### [facility] CLIA [id number] [place] [address] [id number] [place] [address] [place] Start: 11-14-2023 End: 11-14-2023 Microscopic examination of cervical Papanicolaou smear Froilan Metcalf MD Work Phone: Comment on above: Within Normal Limits . [facility] 11/14/23 neg Start: 11-14-2023 Us uterus l imited fetuses Sarkis Webber MATCHBOOK MAKER.ROVING MACHINE OPERATOR Work Phone: Start: 12-25-2022 End: 01-06-2023 Us abdominal real time w/image limited Mu Fitzgerald MD Work Phone: Start: 10-05-2019 End: 10-05-2019 Microscopic examination of cervical Papanicolaou smear Froilan Metcalf MD Work Phone: Comment on above: Within Normal Limits . JARETH Start: 08-01-2017 End: 08-01-2017 Body mass index documented Ilsa Chris MAHAJAN-Sanjeev Work Phone: Plan of Treatment Date Care Activity Detail Author Start: 2052 RSV Vaccine (1 - 1-d ose 60+ series) RSV Vaccine (1 - 1-dose 60+ series) [facility] Start: 11-13-2028 Screening for malign ant neoplasm of cervix Cervical Cancer Screening [facility] Start: 10-25-2024 Influenza vaccination Influenz a Vaccine (Season Ended) [facility] Start: 09-02-2024 End: 09-02-2024 Patient encounter procedure 09/02/2024 10:30 AM EDT Office Visit OB/Gynecology [address] [place], [place] [id number] Jeanna Ferrera APRN.CN [address] [place] [address] Incision check OB/Gynecology Comment on above: Incision check Start: 08-16-2024 End: 08-16-2024 Patient encounter procedure OB/Gynecology Comment on above: Post Post - surgery 08/26 @[facility] Start: 07-06-2024 Patient discharge [facility] Start: 07-05-2024 Documentation procedure [facility] Start: 07-05-2024 Administration of medication [facility] Start: 07-05-2024 Application of ice collar, cap or bag [facility] Start: 07-05-2024 Catheterization of vein [facility] Start: 07-05-2024 Introduction of urin vickie catheter [facility] Start: 07-05-2024 Measuring intake and output [facility] Start: 07-05-2024 Notification of physician [facility] Start: 07-05-2024 Procedure discontinued [facility] Start: 07-05-2024 Provision of activit y privileges [facility] Start: 07-05-2024 Vital signs measurements [facility] Start: 07-05-2024 End: 07-05-2024 [facility] Start: 07-05-2024 Admission procedure [facility] Start: 06-24-2024 End: 06-24-2024 Patient encounter procedure 06/24/2024 10:20 AM EDT Routine Office Visit OB/Gynecology [address] [place] [address] Shiv Mckeon MD [address] [place] [address] OB OB/Gynecology Comment on above: OB Start: 06-18-2024 End: 06-18-2024 Patient encounter procedure 06/18/2024 9:50 AM EDT Routine Office Visit OB/Gynecology [address] [place] [address] Shiv Mckeon MD [address] [place] [address] OB OB/Gynecology Comment on above: OB Start: 06-11-2024 End: 06-11-2024 Patient encounter procedure 06/11/2024 1:40 PM EDT Routine Office Visit OB/Gynecology [address] [place] [address] Ameila Howard MD [address] [place] [address] OB OB/Gynecology Comment on above: OB Start: 06-04-2024 End: 06-04-2024 Patient encounter procedure 06/04/2024 10:10 AM EDT Routine Office Visit OB/Gynecology [address] [place] [address] Amelia Howard MD [address] [place] [address] OB OB/Gynecology Comment on above: OB Start: 05-19-2024 End: 05-19-2024 Patient encounter procedure 05/19/2024 10:30 AM EDT Routine Office Visit OB/Gynecology [address] [place] [address] Sara Blankenship MD [address] [place] [address] OB OB/Gynecology Comment on above: OB Start: 05-06-2024 End: 05-06-2024 Patient encounter procedure 05/06/2024 10:40 AM EDT Routine Office Visit OB/Gynecology [address] [place] [address] Shiv Mckeon MD [address] [place] [address] OB OB/Gynecology Comment on above: OB Start: 04-23-2024 End: 04-23-2024 Patient encounter procedure 04/23/2024 10:30 AM EST Routine Office Visit OB/Gynecology [address] [place] [address] Amelia Howard MD [address] [place] [address] OB OB/Gynecology Comment on above: OB Start: 04-23-2024 End: 04-23-2024 ambulatory 04/23/2024 10:15 AM EST Results Only [place] [facility] [address] [place] [id number] Glucose test [facility] Comment on above: Glucose test Start: 03-26-2024 End: 06-25-2024 ANEMIA REFLEX PANEL ANEMIA REFLEX PANEL Lab Routine 26 weeks gestation of Screening for diabetes mellitus Expected: 03/26/2024, Expires: 06/25/2024 [facility] Comment on above: Expected: 03/26/2024 , Expires: 06/25/2024 Start: 03-26-2024 End: 03-26-2025 GESTATIONAL GLUCOSE SCREEN, 1-HOUR, 50 GRAM, NON-FASTING GESTATIONAL GLUCOSE SCREEN, 1-HOUR, 50 GRAM, NON-FASTING Lab Routine 26 weeks gestation of Screening for diabetes mellitus Expected: 03/26/2024, Expires: 03/26/2025 [facility] Work Phone: Comment on above: Expected: 03/26/2024 , Expires: 03/26/2025 Start: 03-26-2024 End: 03-26-2025 SYPHILIS TREPONEMAL W/REFLEX SYPHILIS TREPONEMAL W/REFLEX Lab Routine 26 weeks gestation of Screening for diabetes mellitus Expected: 03/26/2024, Expires: 03/26/2025 [facility] Comment on above: Expected: 03/26/2024 , Expires: 03/26/2025 Start: 03-26-2024 End: 03-26-2024 Patient encounter procedure 03/26/2024 10:00 AM EST Routine Office Visit OB/Gynecology [address] [place] [id number] Verena Garcia MD [address] [place] [id number] OB OB/Gynecology Comment on above: OB Start: 02-26-2024 End: 02-26-2024 Patient encounter procedure [facility] Comment on above: Anatomy Scan OB Routine Start: 01-16-2024 End: 01-16-2024 Patient encounter procedure 01/16/2024 2:30 PM EST Routine Office Visit OB/Gynecology [address] [place] [address] Sarkis Webber APRN.ROVING MACHINE OPERATOR [address] [place] [address] OB Routine OB/Gynecology Comment on above: OB Routine Start: 12-19-2023 End: 12-18-2024 OBSTETRIC ULTRASOUND WHI OBSTETRIC ULTRASOUND WHI Anc Imaging Routine Encounter for supervision of other normal in first trimester Expected: 12/19/2023, Expires: 12/18/2024 [facility] Work Phone: Comment on above: Expected: 12/19/2023 , Expires: 12/18/2024 Start: 12-19-2023 End: 12-19-2023 Patient encounter procedure OB/Gynecology Comment on above: est new OB Nuchal Start: 11-24-2023 End: 11-24-2023 ambulatory 11/24/2023 10:00 AM EDT Results Only [place] [facility] [address] [place] [address] [place] [facility] Start: 11-14-2023 End: 02-13-2024 CBC panel - Blood by Automated count COMPLETE BLOOD COUNT Lab Routine Encounter for supervision of other normal in first trimester 7 weeks gestation of with uncertain dates in first trimester Expected: 11/14/2023, Expires: 02/13/2024 [facility] Work Phone: Comment on above: Expected: 11/14/2023 , Expires: 02/13/2024 Start: 11-14-2023 End: 02-13-2024 Hemoglobin A1c in Blood HEMOGLOBIN A1C Lab Routine Encounter for supervision of other normal in first trimester 7 weeks gestation of with uncertain dates in first trimester Expected: 11/14/2023, Expires: 02/13/2024 [facility] Comment on above: Expected: 11/14/2023 , Expires: 02/13/2024 Start: 11-14-2023 End: 02-13-2024 HEMOGLOBIN EVALUATION CASCADE HEMOGLOBIN EVALUATION CASCADE Lab Routine Encounter for supervision of other normal in first trimester 7 weeks gestation of with uncertain dates in first trimester Expected: 11/14/2023, Expires: 02/13/2024 [facility] Comment on above: Expected: 11/14/2023 , Expires: 02/13/2024 Start: 11-14-2023 End: 02-13-2024 Hepatitis B virus surface Ag [Presence] in Serum HEPATITIS B SURFACE ANTIGEN Lab Routine Encounter for supervision of other normal in first trimester 7 weeks gestation of with uncertain dates in first trimester Expected: 11/14/2023, Expires: 02/13/2024 [facility] Comment on above: Expected: 11/14/2023 , Expires: 02/13/2024 Start: 11-14-2023 End: 02-13-2024 Hepatitis C virus Ab [Presence] in Serum HEPATITIS C ANTIBODY IA WITH CONFIRMATION Lab Routine Encounter for supervision of other normal in first trimester 7 weeks gestation of with uncertain dates in first trimester Expected: 11/14/2023, Expires: 02/13/2024 [facility] Comment on above: Expected: 11/14/2023 , Expires: 02/13/2024 Start: 11-14-2023 End: 02-13-2024 HIV 1+2 Ab [Presence] in Serum or Plasma by Immunoassay HIV 1/2 COMBO WITH REFLEX TO DIFFERENTIATION Lab Routine Encounter for supervision of other normal in first trimester 7 weeks gestation of with uncertain dates in first trimester Expected: 11/14/2023, Expires: 02/13/2024 [facility] Comment on above: Expected: 11/14/2023 , Expires: 02/13/2024 Start: 11-14-2023 End: 11-13-2024 NUCHAL TRANSLUCENCY WHI NUCHAL TRANSLUCENCY WHI Anc Imaging Routine Encounter for supervision of other normal in first trimester 7 weeks gestation of Expected: 11/14/2023, Expires: 11/13/2024 [facility] Comment on above: Expected: 11/14/2023 , Expires: 11/13/2024 Start: 11-14-2023 End: 02-13-2024 RUBELLA IGG ANTIBODY RUBELLA IGG ANTIBODY Lab Routine Encounter for supervision of other normal in first trimester 7 weeks gestation of with uncertain dates in first trimester Expected: 11/14/2023, Expires: 02/13/2024 [facility] Comment on above: Expected: 11/14/2023 , Expires: 02/13/2024 Start: 11-14-2023 End: 02-13-2024 SYPHILIS TOTAL W/REFLEX SYPHILIS TOTAL W/REFLEX Lab Routine Encounter for supervision of other normal in first trimester 7 weeks gestation of with uncertain dates in first trimester Expected: 11/14/2023, Expires: 02/13/2024 [facility] Comment on above: Expected: 11/14/2023 , Expires: 02/13/2024 Start: 11-14-2023 End: 02-13-2024 TYPE + SCREEN TYPE + SCREEN Blood Bank Routine Encounter for supervision of other normal in first trimester 7 weeks gestation of with uncertain dates in first trimester Expected: 11/14/2023, Expires: 02/13/2024 [facility] Comment on above: Expected: 11/14/2023 , Expires: 02/13/2024 Start: 10-26-2023 Covid-19 Vaccine ( season) Covid-19 Vaccine ( season) [facility] Start: 10-26-2023 Covid-19 Vaccine ( season) Covid-19 Vaccine ( season) [facility] Start: 10-26-2023 Influenza vaccination Influenza Vacc ine (#1) [facility] Start: 01-06-2023 End: 01-06-2023 Hepatobil syst imag inc gb w/pharma intervenj HIDA SCAN WITH ADMINISTRATION OF CHOLECYSTOKININ (65517)(ACR 9 )(DSN [id number])(G-Code G1004(ME)) Date: 06-Jan-2023 Comments: Clinical Indications: Abdominal pain, cholecystitis or biliary obstruction suspected [facility] Comment on above: Clinical Indications : Abdominal pain, cholecystitis or biliary obstruction suspected Start: 08-20-2021 Procedure [facility] Work Phone: Start: 2013 Screening for malign ant neoplasm of cervix Cervical Cancer Screening [facility] Start: 10-14-2011 Hepatitis B Vaccine (1 of 3 - 19+ 3-dose series) Hepatitis B Vaccine (1 of 3 - 19+ 3-dose series) [facility] Start: 10-14-2011 Urine microalbumin profile DTaP,Tdap,Td Vaccine (1 - Tdap) [facility] Start: 2010 Anxiety Screening Anxiety Screening [facility] Start: 2010 Depression Screening Depression Scre ening [facility] Start: 2010 Hepatitis C screening Hepatitis C Sc reening [facility] Start: 2010 HIV screening HIV Screening [facility] Bacteria identified in Urine by Culture URINE CULTURE Microbiology Routine Encounter for supervision of other normal in first trimester 7 weeks gestation of with uncertain dates in first trimester 11/14/2023 12:13 PM EDT [facility] BACTERIAL VAGINOSIS NAAT BACTERI AL VAGINOSIS NAAT Lab Routine Vaginal odor Ordered: 03/31/2024 [facility] Work Phone: Comment on above: Ordered: 03/31/2024 KALINA/TRICHOMONAS NAAT KALINA /TRICHOMONAS NAAT Lab Routine Vaginal odor Ordered: 03/31/2024 [facility] Comment on above: Ordered: 03/31/2024 Chlamydia trachomatis+Neisseria gonorrhoeae DNA [Presence] in Unspecified specimen by KEIKO with probe detection GONORRHEA/CHLAMYDIA NAAT Lab Routine Encounter for supervision of other normal in first trimester 7 weeks gestation of with uncertain dates in first trimester 11/14/2023 12:13 PM EDT [facility] for supervision of other normal in first trimester 7 weeks gestation of with uncertain dates in first trimester Encounter for screening for malignant neoplasm of cervix Special screening examination for human papillomavirus (HPV) 11/14/2023 12:13 PM EDT [facility] Patient referral [facility] Work Phone: Procedure [facility] Work Phone: ROUTINE, GR OUP B STREPTOCOCCUS BY PCR ROUTINE, GROUP B STREPTOCOCCUS BY PCR Microbiology Routine 36 weeks gestation of (HCC) Obesity in , antepartum (HCC) 06/04/2024 10:29 AM EDT [facility] Work Phone: Thyroglobulin antibo dy measurement [facility] Work Phone: Payers Date Payer Category Payer Self-pay [id number] 2024 Unknown [id number] 2023 Unknown PENDING 2022 Private Health Insurance [id number] 2022 Unknown 2022 Unknown [id number] 1992 Unknown [id number] Unknown [id number] Unknown [id number] Social History Date Type Detail Facility Start: 05-17-2020 Tobacco smoking stat us IAIS Unknown if ever smoked [facility] Work Phone: Start: 1990 Sex Assigned At Female [facility] Work Phone: Start: 11-07-2023 End: 07-05-2024 Tobacco smoking status NHIS Never smoked tobacco [facility] Start: 11-07-2023 Tobacco use and exposure Smokeless tobacco non-user [facility] Start: 11-14-2023 End: 08-16-2024 Alcoholic beverage intake Ex-drinker (finding) [facility] Start: 11-14-2023 End: 11-24-2023 History of Social function [facility] Start: 11-14-2023 End: 11-24-2023 Tobacco use panel [facility] National Score (1-10 0), lower number is lower risk Not on file [facility] Start: 10-10-2023 [facility] Start: 11-07-2023 Gender identity Identifies as female gender (finding) [facility] Start: 11-07-2023 Sexual orientation Heterosexual (argelia ndiaye) [facility] Tobacco Use: Tobacco Use: ; N ever smoker. [facility], [facility]. Goals Date Patient Goal Desired Activity /State Personal health goal Clinical Notes 11-07-2023 to 08-16-2024 Amelia Howard MD - 08/16/2024 10:05 AM Amelia Connolly MD - 08/16/2024 10:05 AM Amelia Connolly MD - 07/26/2024 10:21 AM EDT Note Date & Type Note Facility 08-16-2024 History and physical note DATE OF SERVICE: August 16, 2024 PROBLEM: request for sterilization PAST SURGICAL HISTORY: PAST SURGICAL HISTORY Procedure Laterality Date NONE PAST MEDICAL HISTORY: PAST MEDICAL HISTORY Diagnosis Date No known health problems SUBJECTIVE: Pt doing well and offers no complaints SOCIAL HISTORY: Social History Tobacco Use Smoking status: Never Smokeless tobacco: Never Vaping Use Vaping status: Never Used Substance Use Topics Alcohol use: Not Currently Drug use: Never Current Outpatient Medications on File Prior to Visit Medication Sig vits62/FA/om3/dha/epa ( GUMMY ORAL) Take 2 Pieces by mouth once daily. No current facility-administered medications on file prior to visit. ALLERGIES No Known Allergies OBJECTIVE: VITALS: BP 110/70 Pulse 76 Resp 14 Ht 162.6 cm (5' 4) Wt 86.2 kg (190 lb) LMP 09/26/2023 (Exact Date) No BMI 32.61 kg/m HEENT: Normocephalic, atraumatic, Mucus membranes moist without lesions. SKIN: No lesions. CHEST: Clear to auscultation. No wheezes or rales. Good air exchange. HEART: Regular rate and rhythm No S3 or S4. No gallops or rubs. BACK: Nontender. ABDOMEN: Soft, non-tender, non-distended, no masses, no hepatosplenomegaly. LOWER EXTREMITIES: There was no pitting edema, no palpable cords and no skin changes. ASSESSMENT: pre op visit, request for sterilization PLAN: 1) Discussed r/b/a laparoscopic bilateral salpingectomy. She understands the surgery is permanent and irreversible with risk of regret. The rationale for the proposed surgery was discussed in addition to risks, benefits, and alternatives. General pre- and post-operative care was reviewed. Questions were answered. After discussion, the patient indicated a desire to proceed with the planned surgery. Amelia Howard DO Medical Decision Making: Problems: Moderate: New problem with uncertain prognosis Risk: Moderate: Decision on minor surgery w/ risk factors Medical Decision Making Level: 4 - Moderate [facility] 08-16-2024 History and physical note DATE OF SERVICE: August 16, 2024 PROBLEM: request for sterilization PAST SURGICAL HISTORY: PAST SURGICAL HISTORY Procedure Laterality Date NONE PAST MEDICAL HISTORY: PAST MEDICAL HISTORY Diagnosis Date No known health problems SUBJECTIVE: Pt doing well and offers no complaints SOCIAL HISTORY: Social History Tobacco Use Smoking status: Never Smokeless tobacco: Never Vaping Use Vaping status: Never Used Substance Use Topics Alcohol use: Not Currently Drug use: Never Current Outpatient Medications on File Prior to Visit Medication Sig vits62/FA/om3/dha/epa ( GUMMY ORAL) Take 2 Pieces by mouth once daily. No current facility-administered medications on file prior to visit. ALLERGIES No Known Allergies OBJECTIVE: VITALS: BP 110/70 Pulse 76 Resp 14 Ht 162.6 cm (5' 4) Wt 86.2 kg (190 lb) LMP 09/26/2023 (Exact Date) No BMI 32.61 kg/m HEENT: Normocephalic, atraumatic, Mucus membranes moist without lesions. SKIN: No lesions. CHEST: Clear to auscultation. No wheezes or rales. Good air exchange. HEART: Regular rate and rhythm No S3 or S4. No gallops or rubs. BACK: Nontender. ABDOMEN: Soft, non-tender, non-distended, no masses, no hepatosplenomegaly. LOWER EXTREMITIES: There was no pitting edema, no palpable cords and no skin changes. ASSESSMENT: pre op visit, request for sterilization PLAN: 1) Discussed r/b/a laparoscopic bilateral salpingectomy. She understands the surgery is permanent and irreversible with risk of regret. The rationale for the proposed surgery was discussed in addition to risks, benefits, and alternatives. General pre- and post-operative care was reviewed. Questions were answered. After discussion, the patient indicated a desire to proceed with the planned surgery. Amelia Howard DO Medical Decision Making: Problems: Moderate: New problem with uncertain prognosis Risk: Moderate: Decision on minor surgery w/ risk factors Medical Decision Making Level: 4 - Moderate documented in this encounter [facility] 07-26-2024 Note HNO ID: [id number] Author: AMELIA HOWARD MD Service: ? Author Type: Physician Type: Progress Notes Filed: 07/29/2024 16:44 Note Text: EARLY VISIT Zan Santos is a 33 year old here for 3 week visit. Delivery Summary: 07/05/2024 ROS: General: Denies any fever or chills Hypertension Screening: Headache? No. Visual Changes? No Epigastric Pain? No Increased Swelling? No Taking any BP medications at home? No If applicable, monitoring BP at home? (If Yes, include results) NA Mood: normal Depression: denies symptoms of depression. OB Depression and Anxiety Screening- This Encounter Over the past 2 weeks have you felt down, depressed, or hopeless? Negative Over the past two weeks, have you felt little interest or pleasure in doing things?? Negative Feeling nervous, anxious or on edge 0-Not at all Not being able to stop or control worrying 0-Not al all Anxiety Pre-Screening Total (If >/= 3 additional questions will be reviewed) 0 Feeding: Bottle feeding problems: None Bladder: No dysuria, gross hematuria, urinary frequency, urinary urgency, or incontinence Bowel symptoms: Negative for abdominal discomfort, blood in stools or black stools and change in bowel habits Abdomen: N/A Bleeding: None Bottom and Perineum: Hemorrhoids Sleep: no sleep concerns and sleeps in own bassinet/crib/bed in separate room, feels rested [place] since delivery: Not resumed Emotional support: Yes Exercise: N/A Other issues: discuss tubal SENSITIVE EXAM: Sensitive exam not performed. PHYSICAL EXAMINATION: BP 110/72 Wt 84.9 kg (187 lb 3.2 oz) LMP 09/26/2023 (Exact Date) No BMI 32.64 kg/m? General: pleasant,female in no apparent distress. Skin warm and intact. Breast: Deferred Abdomen: Deferred /Incision: N/A Pelvic: Deferred Bimanual: Deferred ASSESSMENT AND PLAN: 33 year old status post with normal course. Contraception plan: Reinforced 6-week pelvic rest. Encouraged condom usage should patient deviate. Education: resources provided - see MA/RN note Desires tubal sterilization. Discussed r/b/a of laparoscopic bilateral salpingectomy. She understands the surgery is permanent and irreversible with risk of regret. Surgery sheet completed Follow up: Return to Clinic for 6 week visit and as needed Amelia Howard DO [facility] 07-26-2024 History of Present illness Narrative EARLY VISIT Zan Santos is a 33 year old here for 3 week visit. Delivery Summary: 07/05/2024 ROS: General: Denies any fever or chills Hypertension Screening: Headache? No. Visual Changes? No Epigastric Pain? No Increased Swelling? No Taking any BP medications at home? No If applicable, monitoring BP at home? (If Yes, include results) NA Mood: normal Depression: denies symptoms of depression. OB Depression and Anxiety Screening- This Encounter Over the past 2 weeks have you felt down, depressed, or hopeless? Negative Over the past two weeks, have you felt little interest or pleasure in doing things? Negative Feeling nervous, anxious or on edge 0-Not at all Not being able to stop or control worrying 0-Not al all Anxiety Pre-Screening Total (If >/= 3 additional questions will be reviewed) 0 Feeding: Bottle feeding problems: None Bladder: No dysuria, gross hematuria, urinary frequency, urinary urgency, or incontinence Bowel symptoms: Negative for abdominal discomfort, blood in stools or black stools and change in bowel habits Abdomen: N/A Bleeding: None Bottom and Perineum: Hemorrhoids Sleep: no sleep concerns and sleeps in own bassinet/crib/bed in separate room, feels rested [place] since delivery: Not resumed Emotional support: Yes Exercise: N/A Other issues: discuss tubal SENSITIVE EXAM: Sensitive exam not performed. PHYSICAL EXAMINATION: BP 110/72 Wt 84.9 kg (187 lb 3.2 oz) LMP 09/26/2023 (Exact Date) No BMI 32.64 kg/m General: pleasant,female in no apparent distress. Skin warm and intact. Breast: Deferred Abdomen: Deferred /Incision: N/A Pelvic: Deferred Bimanual: Deferred ASSESSMENT AND PLAN: 33 year old status post with normal course. Contraception plan: Reinforced 6-week pelvic rest. Encouraged condom usage should patient deviate. Education: resources provided - see MA/RN note Desires tubal sterilization. Discussed r/b/a of laparoscopic bilateral salpingectomy. She understands the surgery is permanent and irreversible with risk of regret. Surgery sheet completed Follow up: Return to Clinic for 6 week visit and as needed Amelia Howard DO documented in this encounter [facility] 07-06-2024 Discharge summary Note Date/Time July 06, 2024 8:53a m [facility] Medical Records Department [address] [place] [address] Discharge Summary 07/06/24 0851 MR#: [id number] Acct: [id number] Name: ZAN SANTOS Rep #:[id number] : 1990 33 From: Shiv Mckeon MD PCP: Dr. Mu Fitzgerald MD Status:ADM IN Location: [id number] Providers Date of Admission: 07/05/24 Primary Care Physician: Dr. Mu Fitzgerald MD Reason For Visit: VAGINAL DELIVERY Diagnosis Discharge Diagnosis (1) Vaginal delivery: Status: Acute Code(s): O80 - Encounter for full-term uncomplicated delivery Plan D/c home per patient request Medications at Discharge Home Medications vit 122-ferrous fumarate 27 mg iron-folic acid 800 mcg tablet (PrenatalMulti) 1 tab PO DAILY 12/05/16 calcium 500 mg (carb,gluconate)-magnesium 250 mg (gluc,oxide) tablet 1 each PO DAILY cramps and sleep 05/14/20 acetaminophen 500 mg tablet 1,000 mg (2 x 500 mg) PO Q6H PRN PRN Pain 1-10 Or Fever #0 tabs 07/06/24 ibuprofen 600 mg tablet 600 mg PO Q6H PRN PRN Pain Score 1-10 #0 tabs 07/06/24 Hospital Course Operations None Procedures None Summary of Care Provided Minutes Spent on Discharge: 15 Weight / BMI Weight Weight: 205 lb 11.06 oz Body Mass Index (BMI) 35.3 ABG / Lab / Microbiology Data 07/05/24 08:30 07/05/24 08:30 Laboratory: Laboratory Results - last 24 hr 07/05/24 08:30: Creatinine 0.46 L, Estim Creat Clear Calc 196.21, Est GFR (MDRD)Non-Af 131, Uric Acid 5.3, AST 13, ALT 10, Syphilis Total Ab Nonreactive, Blood Type A POSITIVE, Antibody Screen NEGATIVE 07/05/24 09:30: U Random Total Protein 8.2, Urine Creatinine 34.40, Protein/Creatinin Ratio 239 H D/C Instructions Discharge Diet: No restrictions Discharge Activity: May Shower May resume sexual activity in: 6 weeks Weight Bearing Status: Weight bearing as tolerated Call your doctor if you observe: Fever of 101 or Higher, Coldness, Increased Pain, Change in Color, Inability to urinate, Inability to have a bowel movement,Using more than 1 pad per hour, Shortness of breath, Dizziness, Fainting spells,Chest pain, Increased palpitations (irregular heartbeat), Calf discomfort and Uncontrolled pain DC O2, CPAP, BIPAP Needs Home O2 Discharge instructions: No Please Follow Up With: Amelia Howard DO When: Follow up in 2 and 6 weeks for visits. Meaningful Use Info Meaningful Use Meaningful Use Diagnoses (Choose all that apply): None applicable Ischemic Stroke Statin Dosing Therapy Reference: STATIN DOSE THERAPY REFERENCE: * Patients > 75 years receive moderate or high dose statin therapy. * Patients 75 years or YOUNGER should receive HIGH intensity statin dose unless contraindicated. You will be required to document reason for non-treatment if statin daily dose does not meet guidelines. HIGH DOSE STATIN THERAPY DAILY Atorvastatin > than or = to 40 mg Rosuvastatin > than or = to 20 mg Amlodipine + Atorvastatin > than or = to 2.5/40 mg Ezetimibe + Simvastatin 10/80 mg Simvastatin 80mg Discharge Plan Admission Admit Date/Time: 07/05/24 07:00 Primary Reason for Your Visit: vaginal delivery Attending Provider: Amelia Howard Primary Care Provider: Mu Fitzgerald Discharge Orders/Prescriptions Prescriptions: New acetaminophen 500 mg Tablet 1,000 mg PO Q6H PRN PRN (Reason: Pain 1-10 Or Fever) Qty: 0 0RF ibuprofen 600 mg Tablet 600 mg PO Q6H PRN PRN (Reason: Pain Score 1-10) Qty: 0 0RF Continued Multi 1 EACH tablet 1 tab PO DAILY calcium carb,gluc-mag gluc,ox 1 EACH tablet 1 each PO DAILY Discontinued ferrous gluconate 325 MG tablet 325 mg PO BIDCM Qty: 60 1RF Referrals / Follow Up: Mu Fitzgerald MD [Primary Care Provider] - Disposition Disposition (needs filled in before D/C Order can be placed): Home, Self Care 07/06/24 0853 <Electronically signed by Shiv Mckeon MD> Cosigner Signature (if applicable): CC: Dr. Shiv Mckeon MD; Dr. Mu Fitzgerald MD~ Signed [facility] Work Phone: [phone]) 896-260505-13-2025 Progress note Author Shiv Mckeon [facility] Note Date/Time July 06, 2024 8:51a m [facility] Medical Records Department [address] [place] [id number] Progress Note - OBGYN 07/06/24 0849 MR#: [id number] Acct: [id number] Name: ZAN SANTOS Rep #:[id number] : 1990 33 From: Shiv Mckeon MD PCP: Dr. Mu Fitzgerald MD Status:ADM IN Location: XP361-2 Subjective Subjective Denies complaints Objective Data Objective Data Vital Signs: Vital Signs Temp Pulse Resp BP Pulse Ox O2 Del Method 97.6 F L 91 16 127/83 H 97 Room Air 07/06/24 04:45 07/06/24 07:28 07/06/24 07:28 07/06/24 07:28 07/06/24 07:28 07/06/24 07:28 Oxygen Delivery Method Room Air Weight: 205 lb 11.06 oz Body Mass Index (BMI) 35.3 Intake & Output: Intake and Output for Last 24 Hours 07/04/24 07/05/24 07/06/24 23:59 23:59 23:59 Intake Total 2596.71 / 2596.71 Output Total 1050 / 1050 400 / 400 Balance 1546.71 / 1546.71 -400 / -400 Lab / Micro Data 07/05/24 08:30 07/05/24 08:30 Labs: Laboratory Results - last 24 hr 07/05/24 08:30: Creatinine 0.46 L, Estim Creat Clear Calc 196.21, Est GFR (MDRD)Non-Af 131, Uric Acid 5.3, AST 13, ALT 10, Syphilis Total Ab Nonreactive, Blood Type A POSITIVE, Antibody Screen NEGATIVE 07/05/24 09:30: U Random Total Protein 8.2, Urine Creatinine 34.40, Protein/Creatinin Ratio 239 H Physical Exam Const alert, oriented x3 and no apparent distress HEENT normocephalic GI soft to palpation, non-tender and non-distended GI Narrative: fundus firm, mid & below umbilicus Extremity normal to inspection and no calf tenderness Assessment & Plan (1) Vaginal delivery: COMMENT: PPD#1 PLAN: Plan D/c home per patient request 07/06/24850 <Electronically signed by Shiv Mckeon MD> Cosigner Signature (if applicable): CC: ~ Signed [facility] Work Phone: 1(272) 339-513105-13-2025 Discharge summary [facility] Medical Records Department [address] [place] [address] Discharge Summary 07/06/24850 MR#: [id number] Acct: [id number] Name: ZAN SANTOS Rep #:[id number] : 1990 33 From: Shiv Mckeon MD PCP: Dr. Mu Fitzgerald MD Status:ADM IN Location: MO202-6 Providers Date of Admission: 07/05/24 Primary Care Physician: Dr. Mu Fitzgerald MD Reason For Visit: VAGINAL DELIVERY Diagnosis Discharge Diagnosis (1) Vaginal delivery: Status: Acute Code(s): O80 - Encounter for full-term uncomplicated delivery Plan D/c home per patient request Medications at Discharge Home Medications vit 122-ferrous fumarate 27 mg iron-folic acid 800 mcg tablet (PrenatalMulti) 1 tab PO DAILY 12/05/16 calcium 500 mg (carb,gluconate)-magnesium 250 mg (gluc,oxide) tablet 1 each PO DAILY cramps and sleep 05/14/20 acetaminophen 500 mg tablet 1,000 mg (2 x 500 mg) PO Q6H PRN PRN Pain 1-10 Or Fever #0 tabs 07/06/24 ibuprofen 600 mg tablet 600 mg PO Q6H PRN PRN Pain Score 1-10 #0 tabs 07/06/24 Hospital Course Operations None Procedures None Summary of Care Provided Minutes Spent on Discharge: 15 Weight / BMI Weight Weight: 205 lb 11.06 oz Body Mass Index (BMI) 35.3 ABG / Lab / Microbiology Data 07/05/24 08:30 07/05/24 08:30 Laboratory: Laboratory Results - last 24 hr 07/05/24 08:30: Creatinine 0.46 L, Estim Creat Clear Calc 196.21, Est GFR (MDRD)Non-Af 131, Uric Acid 5.3, AST 13, ALT 10, Syphilis Total Ab Nonreactive, Blood Type A POSITIVE, Antibody Screen NEGATIVE 07/05/24 09:30: U Random Total Protein 8.2, Urine Creatinine 34.40, Protein/Creatinin Ratio 239 H D/C Instructions Discharge Diet: No restrictions Discharge Activity: May Shower May resume sexual activity in: 6 weeks Weight Bearing Status: Weight bearing as tolerated Call your doctor if you observe: Fever of 101 or Higher, Coldness, Increased Pain, Change in Color,Inability to urinate, Inability to have a bowel movement,Using more than 1 pad per hour, Shortness of breath, Dizziness, Fainting spells,Chest pain, Increased palpitations (irregular heartbeat), Calf discomfort and Uncontrolled pain DC O2, CPAP, BIPAP Needs Home O2 Discharge instructions: No Please Follow Up With: Amelia Howard DO When: Follow up in 2 and 6 weeks for visits. Meaningful Use Info Meaningful Use Meaningful Use Diagnoses (Choose all that apply): None applicable Ischemic Stroke Statin Dosing Therapy Reference: STATIN DOSE THERAPY REFERENCE: * Patients > 75 years receive moderate or high dose statin therapy. * Patients 75 years or YOUNGER should receive HIGH intensity statin dose unless contraindicated. You will be required to document reason for non-treatment if statin daily dose does not meet guidelines. HIGH DOSE STATIN THERAPY DAILY Atorvastatin > than or = to 40 mg Rosuvastatin > than or = to 20 mg Amlodipine + Atorvastatin > than or = to 2.5/40 mg Ezetimibe + Simvastatin 10/80 mg Simvastatin 80mg Discharge Plan Admission Admit Date/Time: 07/05/24 07:00 Primary Reason for Your Visit: vaginal delivery Attending Provider: Amelia Howard Primary Care Provider: Mu Fitzgerald Discharge Orders/Prescriptions Prescriptions: New acetaminophen 500 mg Tablet 1,000 mg PO Q6H PRN PRN (Reason: Pain 1-10 Or Fever) Qty: 0 0RF ibuprofen 600 mg Tablet 600 mg PO Q6H PRN PRN (Reason: Pain Score 1-10) Qty: 0 0RF Continued Multi 1 EACH tablet 1 tab PO DAILY calcium carb,gluc-mag gluc,ox 1 EACH tablet 1 each PO DAILY Discontinued ferrous gluconate 325 MG tablet 325 mg PO BIDCM Qty: 60 1RF Referrals / Follow Up: Mu Fitzgerald MD [Primary Care Provider] - Disposition Disposition (needs filled in before D/C Order can be placed): Home, Self Care 07/06/24 0853 Cosigner Signature (if applicable): CC: Dr. Shiv Mckeon MD; Dr. Mu Fitzgerald MD~ Signed [facility]05-13-2025 [facility] Medical Records Department [address] [place] [address] Discharge Summary 07/06/24 0851 MR#: [id number] Acct: [id number] Name: ZAN SANTOS Rep #: [id number] : 1990 33 From: Shiv Mckeon MD PCP: Dr. Mu Fitzgerald MD Status:ADM IN [facility] Prov[facility] Date of Admission: 07/05/24 Primary Care Physician: Dr. Mu Fitzgerald MD Reason For Visit: VAGINAL DELIVERY Diagnosis Discharge Diagnosis (1) Vaginal delivery: Status: Acute Code(s): O80 - Encounter for full-term uncomplicated delivery Plan D/c home per patient request Medications at Discharge Home Medications vit 122-ferrous fumarate 27 mg iron-folic acid 800 mcg tablet ( Multi) 1 tab PO DAILY 12/05/16 calcium 500 mg (carb,gluconate)-magnesium 250 mg (gluc,oxide) tablet 1 each PO DAILY cramps and sleep 05/14/20 acetaminophen 500 mg tablet 1,000 mg (2 x 500 mg) PO Q6H PRN PRN Pain 1-10 Or Fever #0 tabs 07/06/24 ibuprofen 600 mg tablet 600 mg PO Q6H PRN PRN Pain Score 1-10 #0 tabs 07/06/24 Hospital Course Operations None Procedures None Summary of Care Provided Minutes Spent on Discharge: 15 Weight / BMI Weight Weight: 205 lb 11.06 oz Body Mass Index (BMI) 35.3 ABG / Lab / Microbiology Data 07/05/24 08:30 07/05/24 08:30 Laboratory: Laboratory Results - last 24 hr 07/05/24 08:30: Creatinine 0.46 L, Estim Creat Clear Calc 196.21, Est GFR (MDRD) Non-Af 131, Uric Acid 5.3, AST 13, ALT 10, Syphilis Total Ab Nonreactive, Blood Type A POSITIVE, Antibody Screen NEGATIVE 07/05/24 09:30: U Random Total Protein 8.2, Urine Creatinine 34.40, Protein/Creatinin Ratio 239 H D/C Instructions Discharge Diet: No restrictions Discharge Activity: May Shower May resume sexual activity in: 6 weeks Weight Bearing Status: Weight bearing as tolerated Call your doctor if you observe: Fever of 101 or Higher, Coldness, Increased Pain, Change in Color, Inability to urinate, Inability to have a bowel movement, Using more than 1 pad per hour, Shortness of breath, Dizziness, Fainting spells, Chest pain, Increased palpitations (irregular heartbeat), Calf discomfort and Uncontrolled pain DC O2, CPAP, BIPAP Needs Home O2 Discharge instructions: No Please Follow Up With: Amelia Howard DO When: Follow up in 2 and 6 weeks for visits. Meaningful Use Info Meaningful Use Meaningful Use Diagnoses (Choose all that apply): None applicable Ischemic Stroke Statin Dosing Therapy Reference: STATIN DOSE THERAPY REFERENCE: * Patients > 75 years receive moderate or high dose statin therapy. * Patients 75 years or YOUNGER should receive HIGH intensity statin dose unless contraindicated. You will be required to document reason for non-treatment if statin daily dose does not meet guidelines. HIGH DOSE STATIN THERAPY DAILY Atorvastatin > than or = to 40 mg Rosuvastatin > than or = to 20 mg Amlodipine + Atorvastatin > than or = to 2.5/40 mg Ezetimibe + Simvastatin 10/80 mg Simvastatin 80mg Discharge Plan Admission Admit Date/Time: 07/05/24 07:00 Primary Reason for Your Visit: vaginal delivery Attending Provider: Amelia Howard Primary Care Provider: Mu Fitzgerald Discharge Orders/Prescriptions Prescriptions: New acetaminophen 500 mg Tablet 1,000 mg PO Q6H PRN PRN (Reason: Pain 1-10 Or Fever) Qty: 0 0RF ibuprofen 600 mg Tablet 600 mg PO Q6H PRN PRN (Reason: Pain Score 1-10) Qty: 0 0RF Continued Multi 1 EACH tablet 1 tab PO DAILY calcium carb,gluc-mag gluc,ox 1 EACH tablet 1 each PO DAILY Discontinued ferrous gluconate 325 MG tablet 325 mg PO BIDCM Qty: 60 1RF Referrals / Follow Up: Mu Fitzgerald MD [Primary Care Provider] - Disposition Disposition (needs filled in before D/C Order can be placed): Home, Self Care 07/06/24 0853 Cosigner Signature (if applicable): CC: Dr. Shiv Mckeon MD; [facility] Mu [facility] Progress note [facility] Medical Records Department [address] [place] [address] Progress Note - OBGYN 07/06/24 0849 MR#: [id number] Acct: [id number] Name: ZAN SANTOS Rep #:[id number] : 1990 33 From: Shiv Mckeon MD PCP: Dr. Mu Fitzgerald MD Status:ADM IN Location: [id number] Subjective Subjective Denies complaints Objective Data Objective Data Vital Signs: Vital Signs Temp Pulse Resp BP Pulse Ox O2 Del Method 97.6 F L 91 16 127/83 H 97 Room Air 07/06/24 04:45 07/06/24 07:28 07/06/24 07:28 07/06/24 07:28 07/06/24 07:28 07/06/24 07:28 Oxygen Delivery Method Room Air Weight: 205 lb 11.06 oz Body Mass Index (BMI) 35.3 Intake & Output: Intake and Output for Last 24 Hours 07/04/24 07/05/24 07/06/24 23:59 23:59 23:59 Intake Total 2596.71 / 2596.71 Output Total 1050 / 1050 400 / 400 Balance 1546.71 / 1546.71 -400 / -400 Lab / Micro Data 07/05/24 08:30 07/05/24 08:30 Labs: Laboratory Results - last 24 hr 07/05/24 08:30: Creatinine 0.46 L, Estim Creat Clear Calc 196.21, Est GFR (MDRD)Non-Af 131, Uric Acid 5.3, AST 13, ALT 10, Syphilis Total Ab Nonreactive, Blood Type A POSITIVE, Antibody Screen NEGATIVE 07/05/24 09:30: U Random Total Protein 8.2, Urine Creatinine 34.40, Protein/Creatinin Ratio 239 H Physical Exam Const alert, oriented x3 and no apparent distress HEENT normocephalic GI soft to palpation, non-tender and non-distended GI Narrative: fundus firm, mid & below umbilicus Extremity normal to inspection and no calf tenderness Assessment & Plan (1) Vaginal delivery: COMMENT: PPD#1 PLAN: Plan D/c home per patient request 07/06/24 0851 Cosigner Signature (if applicable): CC: ~ Signed [facility]05-12-2025 History of Present illness Narrative* Vanessa Marsh RN - 07/05/2024 4:45 PM EDT Patient delivered via at [facility] on 07/05/24 per Amelia Howard D.O. See OB Outcome note. Vanessa Marsh RN documented [facility]25 NoteHNO ID: [id number] Author: VANESSA MARSH RN Service: ? Author Type: Registered Nurse Type: Progress Notes Filed: 07/05/2024 16:46 Note Text: Patient delivered via at [facility] on 07/05/24 per Amelia Howard D.O. See OB Outcome note. Vanessa Marsh RN[facility] Procedure note [facility] Medical Records Department [address] [place] [address] OB Vaginal Delivery 07/05/24 1617 MR#: [id number] Acct: [id number] Name: ZAN SANTOS Rep #:[id number] : 1990 33 From: Amelia Howard DO PCP: Dr. Mu Fitzgerald MD Status:ADM IN Location: [id number] Assessment & Plan (1) 40 weeks gestation of : (2) Elective induction of labor planned: (3) Vaginal delivery: (4) Second degree perineal laceration: Vaginal Delivery Maternal Presentation Maternal Presentation: Elective Induction Type of Induction: Pitocin and Amniotomy Vaginal Delivery Information Procedure Performed: Spontaneous Vaginal Delivery Surgeon/Practitioner: Amelia Howard Date of Procedure: 07/05/24 Pre-Procedure Diagnosis: 40 week gestation, elective IOL Post-Procedure Diagnosis: As above Type of anesthesia: Epidural Special Medications: None Estimated Blood Loss: 250 mL Fluids Replaced: N/A Findings Description of procedure: The patient was complete and pushing. The head of the delivered in FAN position. A tight nuchal cord x 1 was noted around the neck without compression. The anterior shoulder was delivered through the nuchal cord, followed by the posterior shoulder and body without any traction, force, delay.A vigorous viable male was placed on maternal abdomen. The cord was clamped and cut after a 60 second delay by the father of the baby. Placenta wasdelivered spontaneously and noted to be normal-appearing and intact with a three-vessel cord. 3-0 Vicryl was used to repair second-degree perineal laceration in usual fashion. Fundus firm and bleeding scant. A vaginal sweep was performed. Sharp and sponge counts were correct. Procedure findings: Vigorous VMI Apgars 8, 9. 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 Amelia Howard DO; Dr. 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 Mu Fitzgerald MD Status:ADM IN Location: [id number] HPI - General General Date of Admission: 07/05/24 Date of Service: 07/05/24 Chief Complaint: IOL HPI Narrative ZAN SANTOS, is a 33 F who presents for scheduled IOL. Offers no complaints. [facility] Medical History (Updated 07/05/24 @ 12:[address] Amelia Howard DO) Superficial varicosities Headache Home Medications ?Medication ?Instructions ?Recorded ?Last Taken ?Type vit 122-ferrous fumarate 1 tab PO DAILY pregn glen 12/05/16 07/04/24 History 27 mg iron-folic acid 800 mcg tablet ( Multi) ferrous gluconate 324 mg (37.5 mg 325 mg (1.0031 x 324 mg (37.5 mg 12/07/16 07/04/24 Rx iron) tablet iron)) PO BIDCM anemia #60 T ABLETS calcium 500 mg 1 each PO DAILY cramps and s leep 05/14/20 07/04/24 History (carb,gluconate)-magnesium 250 mg (gluc,oxide) tablet Allergy/AdvReac Type Severity Reaction Status Date / Time No Known Allergies Allergy Verified 07/05/24 07:33 Social History Smoking Status: Never smoker History Elective abortions Hx Para 2 Spontaneous abortions Hx # Term Pregnancies Ectopic pregnancies Hx # Pregnancies Multiple births # of living children NST FHR Rate Baby A FHR Category:: Category I Vital Signs Vital Signs Vital Signs: 07/05/24 07:18 07/05/24 07:18 07/05/24 07:19 Temperature Temperature Source Pulse Rate 89 Respiratory Rate Blood Pressure 133/87 H BP Systolic 133 BP Diastolic 87 Pulse Ox 97 07/05/24 07:19 07/05/24 08:57 07/05/24 08:57 Temperature Temperature Source Pulse Rate 93 89 Respiratory Rate Blood Pressure 115/65 BP Systolic 115 BP Diastolic 65 Pulse Ox 07/05/24 08:57 07/05/24 08:57 07/05/24 09:03 Temperature Temperature Source Temporal Pulse Rate 88 Respiratory Rate Blood Pressure BP Systolic BP Diastolic Pulse Ox 92 07/05/24 09:03 07/05/24 09:03 07/05/24 09:03 Temperature 97.9 F Temperature Source Pulse Rate Respiratory Rate 16 Blood Pressure BP Systolic BP Diastolic Pulse Ox 97 07/05/24 10:19 07/05/24 10:19 07/05/24 10:19 Temperature Temperature Source Temporal Pulse Rate 83 Respiratory Rate Blood Pressure 119/73 BP Systolic 119 BP Diastolic 73 Pulse Ox 07/05/24 10:19 07/05/24 10:19 07/05/24 10:19 Temperature 98.0 F Temperature Source Pulse Rate Respiratory Rate 16 Blood Pressure BP Systolic BP Diastolic Pulse Ox 98 07/05/24 11:32 07/05/24 11:32 07/05/24 11:37 Temperature Temperature Source Pulse Rate 80 74 Respiratory Rate Blood Pressure BP Systolic BP Diastolic Pulse Ox 99 07/05/24 11:37 07/05/24 11:38 07/05/24 11:38 Temperature Temperature Source Pulse Rate 75 Respiratory Rate Blood Pressure 131/78 H BP Systolic 131 BP Diastolic 78 Pulse Ox 99 07/05/24 11:41 07/05/24 11:41 07/05/24 11:41 Temperature Temperature Source Pulse Rate 80 Respiratory Rate 16 Blood Pressure 130/77 H BP Systolic 130 BP Diastolic 77 Pulse Ox 07/05/24 11:42 07/05/24 11:42 07/05/24 11:44 Temperature Temperature Source Pulse Rate 86 Respiratory Rate Blood Pressure BP Systolic BP Diastolic Pulse Ox 98 94 07/05/24 11:46 07/05/24 11:47 07/05/24 11:47 Temperature Temperature Source Pulse Rate 82 Respiratory Rate 16 Blood Pressure 127/76 H BP Systolic 127 BP Diastolic 76 Pulse Ox 07/05/24 11:47 07/05/24 11:47 07/05/24 11:47 Temperature Temperature Source Pulse Rate 82 Respiratory Rate Blood Pressure 124/71 H BP Systolic 124 BP Diastolic 71 Pulse Ox 97 07/05/24 11:51 07/05/24 11:51 07/05/24 11:51 Temperature Temperature Source Pulse Rate 95 Respiratory Rate 16 Blood Pressure 130/74 H BP Systolic 130 BP Diastolic 74 Pulse Ox 07/05/24 11:52 07/05/24 11:52 07/05/24 11:56 Temperature Temperature Source Temporal Pulse Rate 90 Respiratory Rate Blood Pressure BP Systolic BP Diastolic Pulse Ox 98 07/05/24 11:56 07/05/24 11:56 07/05/24 11:57 Temperature 97.8 F Temperature Source Pulse Rate 88 Respiratory Rate 16 Blood Pressure BP Systolic BP Diastolic Pulse Ox 07/05/24 11:57 07/05/24 11:57 07/05/24 11:57 Temperature Temperature Source Pulse Rate 83 Respiratory Rate Blood Pressure 118/56 L BP Systolic 118 BP Diastolic 56 Pulse Ox 97 07/05/24 12:02 07/05/24 12:02 07/05/24 12:02 Temperature Temperature Source Pulse Rate 85 Respiratory Rate Blood Pressure 111/59 L BP Systolic 111 BP Diastolic 59 Pulse Ox 96 07/05/24 12:02 07/05/24 12:02 07/05/24 12:02 Temperature Temperature Source Pulse Rate 86 Respiratory Rate 16 Blood Pressure BP Systolic BP Diastolic Pulse Ox 97 07/05/24 12:07 07/05/24 12:07 07/05/24 12:07 Temperature Temperature Source Pulse Rate 92 Respiratory Rate 16 Blood Pressure 105/57 L BP Systolic 105 BP Diastolic 57 Pulse Ox 07/05/24 12:07 07/05/24 12:12 07/05/24 12:12 Temperature Temperature Source Pulse Rate 96 Respiratory Rate Blood Pressure 109/67 BP Systolic 109 BP Diastolic 67 Pulse Ox 98 07/05/24 12:12 07/05/24 12:17 07/05/24 12:17 Temperature Temperature Source Pulse Rate 82 Respiratory Rate Blood Pressure BP Systolic BP Diastolic Pulse Ox 97 93 Weight Weight: 205 lb 11.06 oz Body Mass Index (BMI) 35.3 Physical Exam Const alert and no apparent distress General Appearance: comfortable Narrative: Cvx 3/50/-1, vertex Labs Labs Labs: Blood Type A POSITIVE Antibody Screen NEGATIVE Hct 35.7 % (37-47) L Hgb 11.9 g/dL (12.0-15.0) L Syphilis Total Ab Nonreactive (Nonreactive) Rubella IgG Antibody > 500.0 IU/mL Hep Bs Antigen Non-Reactive (Nonreactive) Hepatitis C Antibody Non-Reactive (Nonreactive) Hepatitis C Ab (EIA) <0.1 s/co ratio (0.0-0.9) Chlamydia DNA (KEIKO) Negative (Negative) N.gonorrhoeae DNA (KEIKO) Negative (Negative) HIV 1&2 Antibody Non-Reactive (Nonreactive) Glucose 1 Hr 50 gm 169 mg/dL (70-140) H Gest Glucose Tolerance MG/DL Group B Strep DNA Negative (Negative) Rhogam given: No Assessment & Plan (1) 40 weeks gestation of : PLAN: Discussed r/b/a elective IOL and patient desires to proceed. Cvx /-1, vertex and head well applied. AROM performed for clear fluid. Pitocin per protocol. GBS negative. Pelvis adequate and EFW < 3500 grams. Amticipate vaginaldelivery. (2) Elective induction of labor planned: 07/05/24 1233 <Electronically signed by Amelia Howard DO> Cosigner Signature (if applicable): CC: Dr. Amelia Howard DO; Dr. 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 Mu Fitzgerald MD Status:ADM IN Location: [place] [id number] HPI - General General Date of Admission: 07/05/24 Date of Service: 07/05/24 Chief Complaint: IOL HPI Narrative ZAN SANTOS, is a 33 F who presents for scheduled IOL. Offers no complaints. [facility] Medical History (Updated 07/05/24 @ 12:[address] Amelia Howard DO) Superficial varicosities Headache Home Medications ?Medication ?Instructions ?Recorded ?Last Taken ?Type vit 122-ferrous fumarate 1 tab PO DAILY pregn glen 12/05/16 07/04/24 History 27 mg iron-folic acid 800 mcg tablet ( Multi) ferrous gluconate 324 mg (37.5 mg 325 mg (1.0031 x 324 mg (37.5 mg 12/07/16 07/04/24 Rx iron) tablet iron)) PO BIDCM anemia #60 T ABLETS calcium 500 mg 1 each PO DAILY cramps and s leep 05/14/20 07/04/24 History (carb,gluconate)-magnesium 250 mg (gluc,oxide) tablet Allergy/AdvReac Type Severity Reaction Status Date / Time No Known Allergies Allergy Verified 07/05/24 07:33 Social History Smoking Status: Never smoker History Elective abortions Hx Para 2 Spontaneous abortions Hx # Term Pregnancies Ectopic pregnancies Hx # Pregnancies Multiple births # of living children NST FHR Rate Baby A FHR Category:: Category I Vital Signs Vital Signs Vital Signs: 07/05/24 07:18 07/05/24 07:18 07/05/24 07:19 Temperature Temperature Source Pulse Rate 89 Respiratory Rate Blood Pressure 133/87 H BP Systolic 133 BP Diastolic 87 Pulse Ox 97 07/05/24 07:19 07/05/24 08:57 07/05/24 08:57 Temperature Temperature Source Pulse Rate 93 89 Respiratory Rate Blood Pressure 115/65 BP Systolic 115 BP Diastolic 65 Pulse Ox 07/05/24 08:57 07/05/24 08:57 07/05/24 09:03 Temperature Temperature Source Temporal Pulse Rate 88 Respiratory Rate Blood Pressure BP Systolic BP Diastolic Pulse Ox 92 07/05/24 09:03 07/05/24 09:03 07/05/24 09:03 Temperature 97.9 F Temperature Source Pulse Rate Respiratory Rate 16 Blood Pressure BP Systolic BP Diastolic Pulse Ox 97 07/05/24 10:19 07/05/24 10:19 07/05/24 10:19 Temperature Temperature Source Temporal Pulse Rate 83 Respiratory Rate Blood Pressure 119/73 BP Systolic 119 BP Diastolic 73 Pulse Ox 07/05/24 10:19 07/05/24 10:19 07/05/24 10:19 Temperature 98.0 F Temperature Source Pulse Rate Respiratory Rate 16 Blood Pressure BP Systolic BP Diastolic Pulse Ox 98 07/05/24 11:32 07/05/24 11:32 07/05/24 11:37 Temperature Temperature Source Pulse Rate 80 74 Respiratory Rate Blood Pressure BP Systolic BP Diastolic Pulse Ox 99 07/05/24 11:37 07/05/24 11:38 07/05/24 11:38 Temperature Temperature Source Pulse Rate 75 Respiratory Rate Blood Pressure 131/78 H BP Systolic 131 BP Diastolic 78 Pulse Ox 99 07/05/24 11:41 07/05/24 11:41 07/05/24 11:41 Temperature Temperature Source Pulse Rate 80 Respiratory Rate 16 Blood Pressure 130/77 H BP Systolic 130 BP Diastolic 77 Pulse Ox 07/05/24 11:42 07/05/24 11:42 07/05/24 11:44 Temperature Temperature Source Pulse Rate 86 Respiratory Rate Blood Pressure BP Systolic BP Diastolic Pulse Ox 98 94 07/05/24 11:46 07/05/24 11:47 07/05/24 11:47 Temperature Temperature Source Pulse Rate 82 Respiratory Rate 16 Blood Pressure 127/76 H BP Systolic 127 BP Diastolic 76 Pulse Ox 07/05/24 11:47 07/05/24 11:47 07/05/24 11:47 Temperature Temperature Source Pulse Rate 82 Respiratory Rate Blood Pressure 124/71 H BP Systolic 124 BP Diastolic 71 Pulse Ox 97 07/05/24 11:51 07/05/24 11:51 07/05/24 11:51 Temperature Temperature Source Pulse Rate 95 Respiratory Rate 16 Blood Pressure 130/74 H BP Systolic 130 BP Diastolic 74 Pulse Ox 07/05/24 11:52 07/05/24 11:52 07/05/24 11:56 Temperature Temperature Source Temporal Pulse Rate 90 Respiratory Rate Blood Pressure BP Systolic BP Diastolic Pulse Ox 98 07/05/24 11:56 07/05/24 11:56 07/05/24 11:57 Temperature 97.8 F Temperature Source Pulse Rate 88 Respiratory Rate 16 Blood Pressure BP Systolic BP Diastolic Pulse Ox 07/05/24 11:57 07/05/24 11:57 07/05/24 11:57 Temperature Temperature Source Pulse Rate 83 Respiratory Rate Blood Pressure 118/56 L BP Systolic 118 BP Diastolic 56 Pulse Ox 97 07/05/24 12:02 07/05/24 12:02 07/05/24 12:02 Temperature Temperature Source Pulse Rate 85 Respiratory Rate Blood Pressure 111/59 L BP Systolic 111 BP Diastolic 59 Pulse Ox 96 07/05/24 12:02 07/05/24 12:02 07/05/24 12:02 Temperature Temperature Source Pulse Rate 86 Respiratory Rate 16 Blood Pressure BP Systolic BP Diastolic Pulse Ox 97 07/05/24 12:07 07/05/24 12:07 07/05/24 12:07 Temperature Temperature Source Pulse Rate 92 Respiratory Rate 16 Blood Pressure 105/57 L BP Systolic 105 BP Diastolic 57 Pulse Ox 07/05/24 12:07 07/05/24 12:12 07/05/24 12:12 Temperature Temperature Source Pulse Rate 96 Respiratory Rate Blood Pressure 109/67 BP Systolic 109 BP Diastolic 67 Pulse Ox 98 07/05/24 12:12 07/05/24 12:17 07/05/24 12:17 Temperature Temperature Source Pulse Rate 82 Respiratory Rate Blood Pressure BP Systolic BP Diastolic Pulse Ox 97 93 Weight Weight: 205 lb 11.06 oz Body Mass Index (BMI) 35.3 Physical Exam Const alert and no apparent distress General Appearance: comfortable Narrative: Cvx 350/-1, vertex Labs Labs Labs: Blood Type A POSITIVE Antibody Screen NEGATIVE Hct 35.7 % (37-47) L Hgb 11.9 g/dL (12.0-15.0) L Syphilis Total Ab Nonreactive (Nonreactive) Rubella IgG Antibody > 500.0 IU/mL Hep Bs Antigen Non-Reactive (Nonreactive) Hepatitis C Antibody Non-Reactive (Nonreactive) Hepatitis C Ab (EIA) <0.1 s/co ratio (0.0-0.9) Chlamydia DNA (KEIKO) Negative (Negative) N.gonorrhoeae DNA (KEIKO) Negative (Negative) HIV 1&2 Antibody Non-Reactive (Nonreactive) Glucose 1 Hr 50 gm 169 mg/dL (70-140) H Gest Glucose Tolerance MG/DL Group B Strep DNA Negative (Negative) Rhogam given: No Assessment & Plan (1) 40 weeks gestation of : PLAN: Discussed r/b/a elective IOL and patient desires to proceed. Cvx /-1, vertex and head well applied. AROM performed for clear fluid. Pitocin per protocol. GBS negative. Pelvis adequate and EFW < 3500 grams. Amticipate vaginaldelivery. (2) Elective induction of labor planned: 07/05/24 1233 Cosigner Signature (if applicable): CC: Dr. Amelia Howard DO; Dr. Mu Fitzgerald MD~ Signed [facility]05-12-2025 Evaluation note* Diagnosis Onset Date Resolution Status Admit Date 40 weeks gestation of acut e July 05, 2024 7:00am Elective induction of labor planned acute July 05, 2024 7 :00am Second degree perineal laceration ac sitka July 05, 2024 7:00am Vaginal delivery acute June 7:00am [facility] Work Phone: 1(906) 126-123505-09-2025 Progress note* Quick Notes - Amelia Howard MD - 07/02/2024 12:28 PM EDT SW- No ctx, vb, lof. Good FM. Tearful today as she is uncomfortable and desires delivery PE: Gen- NAD, well appearing Abd- Soft, gravid, NT See flowsheet A/p 40 wk gestation - Discussed r/b/a IOL and consent signed. Patient desires IOL 07/05/24 if undelivered - RTO Amelia Howard DO [facility]05-09-2025 Miscellaneous Notes* Quick Notes - Amelia Howard MD - 07/02/2024 12:28 PM EDT SW- No ctx, vb, lof. Good FM. Tearful today as she is uncomfortable and desires delivery PE: Gen- NAD, well appearing Abd- Soft, gravid, NT See flowsheet A/p 40 wk gestation - Discussed r/b/a IOL and consent signed. Patient desires IOL 07/05/24 if undelivered - RTO Amelia Howard DO documented in this encounterAdena Health System05-09-2025 Instructions* Patient Instructions* Nancy Haro MA - 07/02/2024 10:51 AM EDT SEQUENTIAL SCREENINGS The [facility] offers sequential screenings for women who are interested in screenings for chromosomal abnormalities and certain defects during a . The sequential screen combinesultrasound and blood tests to determine the risk of chromosomal abnormalities, including Down's Syndrome (Trisomy 21) and Trisomy 18, as well as open neural tube defects including spina bifida. Ultrasound examination is performed between 11 weeks and 13 weeks gestational age. Blood tests are drawn after the ultrasound and again later in the between 15 and 21 weeks gestational age. Please let your physician know if you are interested in this testing. It will require an appointment withour psychology technician. This is not an ultrasound performed by a physician in our office during a routine visit. SIGNS AND SYMPTOMS OF LABOR 1. Contractions every 10 minutes or more often 2. Clear, pink, or brownish fluid (water) leaking from vagina 3. Feeling that baby is pushing down, pressure 4. Low, dull backache 5. Cramps that feel like a period 6. Cramps with or without diarrhea If you notice any of the above symptoms, contact our office at [phone] and ask to speak with anurse. After hours, you can call doctors registry at [phone] OR call [facility] at [phone] ask to have the doctor substation operator helper paged. If you consider this an emergency, dial [phone] or go to your nearest emergency department. NEED HELP? Are you dealing with a violent or abusive relationship? Are you a victim of rape or sexual assult? Call [facility] ([place]) 24 hour Crisis Hotline: 880.602.4090 or 923-780-6644. MANUAL Your Guide to a Healthy manual is now on-line. Visit [email or web address] to download your free copy documented in this encounterAdena Health System05-01-2025 Progress note* Quick Notes - Shiv Mckeon MD - 06/24/2024 10:38 AM EDT KJ - S: Zan denies LOF, contractions or vaginal bleeding. O: 38w6d, see flow sheet SENSITIVE EXAM: Sensitive exam not performed. A/P: Assessment & Plan Anemia complicating , third trimester (HCC) Orders: URINE OB DIP B/O Obesity in , antepartum (HCC) Orders: URINE OB DIP B/O Reviewed labor & FM precautions Shiv Mckeon MD [facility]05-01-2025 Miscellaneous Notes* Quick Notes - Shiv Mckeon MD - 06/24/2024 10:38 AM EDT KJ - S: Zan denies LOF, contractions or vaginal bleeding. O: 38w6d, see flow sheet SENSITIVE EXAM: Sensitive exam not performed. A/P: Assessment & Plan Anemia complicating , third trimester (HCC) Orders: URINE OB DIP B/O Obesity in , antepartum (HCC) Orders: URINE OB DIP B/O Reviewed labor & FM precautions Shiv Mckeon MD documented in this encounterAdena Health System05-01-2025 Instructions* Patient Instructions* Nancy Haro MA - 06/24/2024 10:24 AM EDT SEQUENTIAL SCREENINGS The [facility] offers sequential screenings for women who are interested in screenings for chromosomal abnormalities and certain defects during a . The sequential screen combinesultrasound and blood tests to determine the risk of chromosomal abnormalities, including Down's Syndrome (Trisomy 21) and Trisomy 18, as well as open neural tube defects including spina bifida. Ultrasound examination is performed between 11 weeks and 13 weeks gestational age. Blood tests are drawn after the ultrasound and again later in the between 15 and 21 weeks gestational age. Please let your physician know if you are interested in this testing. It will require an appointment withour psychology technician. This is not an ultrasound performed by a physician in our office during a routine visit. SIGNS AND SYMPTOMS OF LABOR 1. Contractions every 10 minutes or more often 2. Clear, pink, or brownish fluid (water) leaking from vagina 3. Feeling that baby is pushing down, pressure 4. Low, dull backache 5. Cramps that feel like a period 6. Cramps with or without diarrhea If you notice any of the above symptoms, contact our office at [phone] and ask to speak with anurse. After hours, you can call doctors registry at [phone] OR call [facility] at [phone] ask to have the doctor substation operator helper paged. If you consider this an emergency, dial [phone]--1 or go to your nearest emergency department. NEED HELP? Are you dealing with a violent or abusive relationship? Are you a victim of rape or sexual assult? Call [facility] ([place]) 24 hour Crisis Hotline: 867.194.3839 or 774-947-9446. MANUAL Your Guide to a Healthy manual is now on-line. Visit [email or web address] to download your free copy documented in this encounterAdena Health System04-29-2025 NoteHNO ID: [id number] Author: NANCY CALVILLO MA Service: ? Author Type: Laborer Carpentry Dock Type: Progress Notes Filed: 06/22/2024 11:38 Note Text: POPULATION HEALTH NAVIGATION OUTREACH Action/FYI Called and spoke with pt and confirmed account maintenance representative. Reason for Outreach Medicaid OB/Peds Care Gaps due: N/A Patient Contacted: Spoke to patient/parent/or legal guardian Patient identified by name and : Yes Medicaid OB/Peds actions taken: [place] Operator added Navigation Signature: Nancy Kerr MA June 22, 2024 11:36 [facility]04-29-2025 History of Present illness Narrative* Nancy Calvillo MA - 06/22/2024 11:34 AM EDT POPULATION HEALTH NAVIGATION OUTREACH Action/FYI Called and spoke with pt and confirmed account maintenance representative. Reason for Outreach Medicaid OB/Peds Care Gaps due: N/A Patient Contacted: Spoke to patient/parent/or legal guardian Patient identified by name and : Yes Medicaid OB/Peds actions taken: [place] Operator added Navigation Signature: Nancy Kerr MA June 22, 2024 11:36 AM documented in this encounterAdena Health System04-29-2025 NotePatient Outreach (NETNAV) ZAN SANTOS ([id number]) 1990 F Date Time Provider Department 06/22/24 NANCY CALVILLO During your visit today, we recorded the following information about you: Nancy Calvillo MA 06/22/2024 11:38 AM Signed POPULATION HEALTH NAVIGATION OUTREACH Action/FYI Called and spoke with pt and confirmed account maintenance representative. Reason for Outreach Medicaid OB/Peds Care Gaps due: N/A Patient Contacted: Spoke to patient/parent/or legal guardian Patient identified by name and : Yes Medicaid OB/Peds actions taken: /[place] Operator added Navigation Signature: Nancy Kerr MA June 22, 2024 11:36 AM Allergies As of Date: 06/22/2024 (No Known Allergies) Date Reviewed: 06/18/2024 Reviewed by: Shiv Mckeon MD - Fully Assessed Reason for Visit: Population Health Navigation Outreach [3910] Cmt: Ob/peds Prescriptions as of 06/22/2024 - ferrous sulfate (IRON) 325 mg (65 mg iron) tablet Take 325 mg by mouth once daily. - vits62/FA/om3/dha/epa ( GUMMY ORAL) Take 2 Pieces by mouth once daily. - OTC NUTRITIONAL SUPPLEMENT Take 1 tablet by mouth once daily. Calcium, Magnesium, and Zinc supplement Problem List As Of Date 06/22/2024 Noted Resolved Supervision of normal [Z34.90] 11/14/2023 History of headache [Z87.898] 11/14/2023 Obesity affecting in second trimester*11/14/2023 Nausea [R11.0] 12/19/2023 Request for sterilization [Z30.2] 04/23/2024 Abnormal glucose complicating [O99.81*04/26/2024 Encounter Status:Closed by NANCY CALVILLO on 06/22/24[facility] 06-11-2024 Progress note* Quick Notes - Amelia Howard MD - 06/11/2024 1:42 PM EDT SW- Some irregular ctx's and pressure. No vb, lof. Good FM. Has had watery diarrhea and stomach cramping. No fevers or severe pain. No sick contacts or new foods. Tolerating PO PE: Gen- NAD, well appearing Abd- NT, gravid, S=D See flowsheet A/p 37 wk gestation - Discussed likely gastroenteritis. Encouraged hydration and bland diet - Interested in membrane sweeps when appropriate - Labor precautions reviewed - RTO 1 wk Amelia Howard DO [facility]04-18-2025 Miscellaneous Notes* Quick Notes - Amelia Howard MD - 06/11/2024 1:42 PM EDT SW- Some irregular ctx's and pressure. No vb, lof. Good FM. Has had watery diarrhea and stomach cramping. No fevers or severe pain. No sick contacts or new foods. Tolerating PO PE: Gen- NAD, well appearing Abd- NT, gravid, S=D See flowsheet A/p 37 wk gestation - Discussed likely gastroenteritis. Encouraged hydration and bland diet - Interested in membrane sweeps when appropriate - Labor precautions reviewed - RTO 1 wk Amelia Howard DO documented in this encounterAdena [facility] System04-18-2025 Instructions* Patient Instructions* Nancy Haro MA - 06/11/2024 1:36 PM EDT SEQUENTIAL SCREENINGS The [facility] offers sequential screenings for women who are interested in screenings for chromosomal abnormalities and certain defects during a . The sequential screen combinesultrasound and blood tests to determine the risk of chromosomal abnormalities, including Down's Syndrome (Trisomy 21) and Trisomy 18, as well as open neural tube defects including spina bifida. Ultrasound examination is performed between 11 weeks and 13 weeks gestational age. Blood tests are drawn after the ultrasound and again later in the between 15 and 21 weeks gestational age. Please let your physician know if you are interested in this testing. It will require an appointment withour psychology technician. This is not an ultrasound performed by a physician in our office during a routine visit. SIGNS AND SYMPTOMS OF LABOR 1. Contractions every 10 minutes or more often 2. Clear, pink, or brownish fluid (water) leaking from vagina 3. Feeling that baby is pushing down, pressure 4. Low, dull backache 5. Cramps that feel like a period 6. Cramps with or without diarrhea If you notice any of the above symptoms, contact our office at [phone] and ask to speak with anurse. After hours, you can call doctors registry at [phone] OR call [facility] at [phone] ask to have the doctor substation operator helper paged. If you consider this an emergency, dial 9-1-7 or go to your nearest emergency department. NEED HELP? Are you dealing with a violent or abusive relationship? Are you a victim of rape or sexual assult? Call [facility] ([place]) 24 hour Crisis Hotline: 940.776.8482 or 790-663-1381. MANUAL Your Guide to a Healthy manual is now on-line. Visit [email or web address] to download your free copy documented in this encounterAdena Health System04-11-2025 Progress note* Quick Notes - Amelia Howard MD - 06/04/2024 10:14 AM EDT SW- Varicose veins that are bothersome and improve with ice. No vb, lof. No ctx's. Good FM PE: Gen- NAD, well appearing Abd- Soft, gravid, NT See flowsheet A/p 36 wk gestation - GBS today - Bedside TAUS confirms vertex presentation - Weekly visits Amelia Howard DO [facility]04-11-2025 Miscellaneous Notes* Quick Notes - Amelia Howard MD - 06/04/2024 10:14 AM EDT SW- Varicose veins that are bothersome and improve with ice. No vb, lof. No ctx's. Good FM PE: Gen- NAD, well appearing Abd- Soft, gravid, NT See flowsheet A/p 36 wk gestation - GBS today - Bedside TAUS confirms vertex presentation - Weekly visits Amelia Howard DO documented in this encounterAdena Health System04-11-2025 Instructions* Patient Instructions* Nancy HaroKARIE - 06/04/2024 9:56 AM EDT SEQUENTIAL SCREENINGS The [facility] offers sequential screenings for women who are interested in screenings for chromosomal abnormalities and certain defects during a . The sequential screen combinesultrasound and blood tests to determine the risk of chromosomal abnormalities, including Down's Syndrome (Trisomy 21) and Trisomy 18, as well as open neural tube defects including spina bifida. Ultrasound examination is performed between 11 weeks and 13 weeks gestational age. Blood tests are drawn after the ultrasound and again later in the between 15 and 21 weeks gestational age. Please let your physician know if you are interested in this testing. It will require an appointment withour psychology technician. This is not an ultrasound performed by a physician in our office during a routine visit. SIGNS AND SYMPTOMS OF LABOR 1. Contractions every 10 minutes or more often 2. Clear, pink, or brownish fluid (water) leaking from vagina 3. Feeling that baby is pushing down, pressure 4. Low, dull backache 5. Cramps that feel like a period 6. Cramps with or without diarrhea If you notice any of the above symptoms, contact our office at [phone] and ask to speak with anurse. After hours, you can call doctors registry at [phone] OR call [facility] at [phone] ask to have the doctor substation operator helper paged. If you consider this an emergency, dial 9-1-1 or go to your nearest emergency department. NEED HELP? Are you dealing with a violent or abusive relationship? Are you a victim of rape or sexual assult? Call [facility] ([place]) 24 hour Crisis Hotline: 467.410.4308 or 169-035-9511. MANUAL Your Guide to a Healthy manual is now on-line. Visit [email or web address] to download your free copy documented in this encounterAdena Health System03-26-2025 NoteHNO ID: [id number] Author: SARA BLANKENSHIP MD Service: ? Author Type: Physician Type: Progress Notes Filed: 05/19/2024 10:46 Note Text: DM-Pt doing well. Denies vaginal Bleeding, Leaking fluid, or regular Contractions. Pt reports good movement Physical Exam: Gen: female in no apparent distress Abd: soft, Gravid. Non tender to palpation. See flow sheet @ 33.5 weeks Assessment AND Plan Encounter for supervision of other normal in third trimester Anemia complicating , third trimester Continue PO iron Obesity in , antepartum Declined ASA 33 weeks gestation of Kick counts and PTL reviewed RTO 2 wks [facility] History of Present illness Narrative* Sara Blankenship MD - 05/19/2024 10:25 AM EDT DM-Pt doing well. Denies vaginal Bleeding, Leaking fluid, or regular Contractions. Pt reports good movement Physical Exam: Gen: female in no apparent distress Abd: soft, Gravid. Non tender to palpation. See flow sheet @ 33.5 weeks Assessment & Plan Encounter for supervision of other normal in third trimester Anemia complicating , third trimester Continue PO iron Obesity in , antepartum Declined ASA 33 weeks gestation of Kick counts and PTL reviewed RTO 2 wks Sara Iraheta MD documented in this encounterAdena Health System03-26-2025 Instructions* Patient Instructions* Nata Rios MA - 05/19/2024 10:07 AM EDT SEQUENTIAL SCREENINGS The [facility] offers sequential screenings for women who are interested in screenings for chromosomal abnormalities and certain defects during a . The sequential screen combinesultrasound and blood tests to determine the risk of chromosomal abnormalities, including Down's Syndrome (Trisomy 21) and Trisomy 18, as well as open neural tube defects including spina bifida. Ultrasound examination is performed between 11 weeks and 13 weeks gestational age. Blood tests are drawn after the ultrasound and again later in the between 15 and 21 weeks gestational age. Please let your physician know if you are interested in this testing. It will require an appointment withour psychology technician. This is not an ultrasound performed by a physician in our office during a routine visit. SIGNS AND SYMPTOMS OF LABOR 1. Contractions every 10 minutes or more often 2. Clear, pink, or brownish fluid (water) leaking from vagina 3. Feeling that baby is pushing down, pressure 4. Low, dull backache 5. Cramps that feel like a period 6. Cramps with or without diarrhea If you notice any of the above symptoms, contact our office at [phone] and ask to speak with anurse. After hours, you can call doctors registry at [phone] OR call [facility] at [phone] ask to have the doctor substation operator helper paged. If you consider this an emergency, dial 7-1- or go to your nearest emergency department. NEED HELP? Are you dealing with a violent or abusive relationship? Are you a victim of rape or sexual assult? Call [facility] ([place]) 24 hour Crisis Hotline: 815.631.6998 or 673-812-5257. MANUAL Your Guide to a Healthy manual is now on-line. Visit [email or web address] to download your free copy documented in this encounterAdena Health System03-13-2025 Progress note* Quick Notes - Shiv Mckeon MD - 05/06/2024 10:51 AM EDT KJ - S: Zan denies LOF, contractions or vaginal bleeding. O: 31w6d, see flow sheet SENSITIVE EXAM: Sensitive exam not performed. A/P: Assessment & Plan Encounter for supervision of other normal in third trimester 31 weeks gestation of Anemia complicating , third trimester Reviewed PTL & FM precautions Shiv Mckeon MD [facility]03-13-2025 Miscellaneous Notes* Quick Notes - Shiv Mckeon MD - 05/06/2024 10:51 AM EDT KJ - S: Azn denies LOF, contractions or vaginal bleeding. O: 31w6d, see flow sheet SENSITIVE EXAM: Sensitive exam not performed. A/P: Assessment & Plan Encounter for supervision of other normal in third trimester 31 weeks gestation of Anemia complicating , third trimester Reviewed PTL & FM precautions Shiv Mckeon MD documented in this encounterAdena Health System02-28-2025 Progress note* Quick Notes - Amelia Howard MD - 04/23/2024 11:12 AM EST SW- No pain, vb, lof. Good FM PE: Gen- Nad, well appearing Abd- Soft, gravid, NT, S=D See flowsheet A/p 30 wk gestation - Tdap declined - plan sheet given - 28 wk labs today - Title 19 signed. Discussed r/b/a sterilization. Patient desires sterilization and plans to followup 1-2 weeks to schedule - RTO 2 wks Amelia Howard DO [facility]02-28-2025 Miscellaneous Notes* Quick Notes - Amelia Howard MD - 04/23/2024 11:12 AM EST SW- No pain, vb, lof. Good FM PE: Gen- Nad, well appearing Abd- Soft, gravid, NT, S=D See flowsheet A/p 30 wk gestation - Tdap declined - plan sheet given - 28 wk labs today - Title 19 signed. Discussed r/b/a sterilization. Patient desires sterilization and plans to followup 1-2 weeks to schedule - RTO 2 wks Amelia Howard DO documented in this encounterAdena Health System02-28-2025 Instructions* Patient Instructions* Nancy Haro MA - 04/23/2024 10:32 AM EST SEQUENTIAL SCREENINGS The [facility] offers sequential screenings for women who are interested in screenings for chromosomal abnormalities and certain defects during a . The sequential screen combinesultrasound and blood tests to determine the risk of chromosomal abnormalities, including Down's Syndrome (Trisomy 21) and Trisomy 18, as well as open neural tube defects including spina bifida. Ultrasound examination is performed between 11 weeks and 13 weeks gestational age. Blood tests are drawn after the ultrasound and again later in the between 15 and 21 weeks gestational age. Please let your physician know if you are interested in this testing. It will require an appointment withour psychology technician. This is not an ultrasound performed by a physician in our office during a routine visit. SIGNS AND SYMPTOMS OF LABOR 1. Contractions every 10 minutes or more often 2. Clear, pink, or brownish fluid (water) leaking from vagina 3. Feeling that baby is pushing down, pressure 4. Low, dull backache 5. Cramps that feel like a period 6. Cramps with or without diarrhea If you notice any of the above symptoms, contact our office at [phone] and ask to speak with anurse. After hours, you can call doctors registry at [phone] OR call [facility] at [phone] ask to have the doctor substation operator helper paged. If you consider this an emergency, dial 9-1-5 or go to your nearest emergency department. NEED HELP? Are you dealing with a violent or abusive relationship? Are you a victim of rape or sexual assult? Call [facility] ([facility] 24 hour Crisis Hotline: 683.456.2936 or 963-351-5738. MANUAL Your Guide to a Healthy manual is now on-line. Visit [email or web address] to download your free copy documented in this encounterAdena Health System02-05-2025 Progress note* Quick Notes - Alexandra Haro MD - 03/31/2024 4:46 PM EST S: Zan Santos is a 33 year old female who presents at 07/02/2024, by Last Menstrual Period fora routine visit. Denies headache, visual changes, chest pain, shortness of breath, vaginal bleeding, leakage of fluid, or dysuria. Feeling well, no complaints. O: See flow sheet Gen: No apparent distress Abd: Gravid, nontender Participation of a fellow, resident, medical student, or advanced practice provider student in performing the sensitive examination was discussed with the patient or authorized customer development representative. The patient or authorized customer development representative has agreed to proceed with the sensitive examination. (Sensitive examination includes inspection and/or palpation of the breasts, pelvis, prostate and anorectal regions) Discharge on exam. Cultures collected No bleeding CVX closed ASSESSMENT/PLAN: 1. 26 weeks gestation of - ICD9: V22.2, ICD10: Z3A.26 (primary diagnosis) PTL precautions 2. Vaginal odor - ICD9: 625.8, ICD10: N89.8 - BACTERIAL VAGINOSIS NAAT - KALINA/TRICHOMONAS NAAT 3. Encounter for supervision of other normal in second trimester - ICD9: V22.1, ICD10: Z34.82 Alexandra Haro MD [facility]02-05-2025 Miscellaneous Notes* Quick Notes - Alexandra Haro MD - 03/31/2024 4:46 PM EST S: Zan Santos is a 33 year old female who presents at 07/02/2024, by Last Menstrual Period fora routine visit. Denies headache, visual changes, chest pain, shortness of breath, vaginal bleeding, leakage of fluid, or dysuria. Feeling well, no complaints. O: See flow sheet Gen: No apparent distress Abd: Gravid, nontender Participation of a fellow, resident, medical student, or advanced practice provider student in performing the sensitive examination was discussed with the patient or authorized customer development representative. The patient or authorized customer development representative has agreed to proceed with the sensitive examination. (Sensitive examination includes inspection and/or palpation of the breasts, pelvis, prostate and anorectal regions) Discharge on exam. Cultures collected No bleeding CVX closed ASSESSMENT/PLAN: 1. 26 weeks gestation of - ICD9: V22.2, ICD10: Z3A.26 (primary diagnosis) PTL precautions 2. Vaginal odor - ICD9: 625.8, ICD10: N89.8 - BACTERIAL VAGINOSIS NAAT - KALINA/TRICHOMONAS NAAT 3. Encounter for supervision of other normal in second trimester - ICD9: V22.1, ICD10: Z34.82 Alexandra Haro MD documented in this encounterAdena Health System02-05-2025 Instructions* Patient Instructions* Nancy Haro MA - 03/31/2024 2:06 PM EST SEQUENTIAL SCREENINGS The [facility] offers sequential screenings for women who are interested in screenings for chromosomal abnormalities and certain defects during a . The sequential screen combinesultrasound and blood tests to determine the risk of chromosomal abnormalities, including Down's Syndrome (Trisomy 21) and Trisomy 18, as well as open neural tube defects including spina bifida. Ultrasound examination is performed between 11 weeks and 13 weeks gestational age. Blood tests are drawn after the ultrasound and again later in the between 15 and 21 weeks gestational age. Please let your physician know if you are interested in this testing. It will require an appointment withour psychology technician. This is not an ultrasound performed by a physician in our office during a routine visit. SIGNS AND SYMPTOMS OF LABOR 1. Contractions every 10 minutes or more often 2. Clear, pink, or brownish fluid (water) leaking from vagina 3. Feeling that baby is pushing down, pressure 4. Low, dull backache 5. Cramps that feel like a period 6. Cramps with or without diarrhea If you notice any of the above symptoms, contact our office at [phone] and ask to speak with anurse. After hours, you can call [employer] registry at [phone] OR call [facility] at [phone] ask to have the doctor substation operator helper paged. If you consider this an emergency, dial 9-1-3 or go to your nearest emergency department. NEED HELP? Are you dealing with a violent or abusive relationship? Are you a victim of rape or sexual assult? Call [facility] ([place]) 24 hour Crisis Hotline: 548.567.9049 or 056-833-5618. MANUAL Your Guide to a Healthy manual is now on-line. Visit [email or web address] to download your free copy documented in this encounterAdena Health System01-31-2025 Progress note* Quick Notes - Verena Garcia MD - 03/26/2024 10:13 AM EST RR- VB No. LOF No. CTXS No. Movement: present. Other c/o: No. Medication list reviewed. SENSITIVE EXAM: Sensitive exam not performed. Physical Exam See Flow Sheet Abd: soft, nontender, gravid Ext: edema: Trace A/P 26w0d Estimated Date of Delivery: 07/02/24 would like tubal for contraception 28 week labs next visit f/u in 4 weeks or prn Verena Garcia M.D. [facility]01-31-2025 Miscellaneous Notes* Quick Notes - eVrena Garcia MD - 03/26/2024 10:13 AM EST RR- VB No. LOF No. CTXS No. Movement: present. Other c/o: No. Medication list reviewed. SENSITIVE EXAM: Sensitive exam not performed. Physical Exam See Flow Sheet Abd: soft, nontender, gravid Ext: edema: Trace A/P 26w0d Estimated Date of Delivery: 07/02/24 would like tubal for contraception 28 week labs next visit f/u in 4 weeks or prn Verena Garcia M.D. documented in this encounterAdena Health System01-31-2025 Instructions* Patient Instructions* Veena Snyder MA - 03/26/2024 10:03 AM EST SEQUENTIAL SCREENINGS The [facility] offers sequential screenings for women who are interested in screenings for chromosomal abnormalities and certain defects during a . The sequential screen combinesultrasound and blood tests to determine the risk of chromosomal abnormalities, including Down's Syndrome (Trisomy 21) and Trisomy 18, as well as open neural tube defects including spina bifida. Ultrasound examination is performed between 11 weeks and 13 weeks gestational age. Blood tests are drawn after the ultrasound and again later in the between 15 and 21 weeks gestational age. Please let your physician know if you are interested in this testing. It will require an appointment withour psychology technician. This is not an ultrasound performed by a physician in our office during a routine visit. SIGNS AND SYMPTOMS OF LABOR 1. Contractions every 10 minutes or more often 2. Clear, pink, or brownish fluid (water) leaking from vagina 3. Feeling that baby is pushing down, pressure 4. Low, dull backache 5. Cramps that feel like a period 6. Cramps with or without diarrhea If you notice any of the above symptoms, contact our office at [phone] and ask to speak with anurse. After hours, you can call doctors registry at [phone] OR call [facility] at [phone] ask to have the doctor substation operator helper paged. If you consider this an emergency, dial 9-1-4 or go to your nearest emergency department. NEED HELP? Are you dealing with a violent or abusive relationship? Are you a victim of rape or sexual assult? Call [facility] ([facility] 24 hour Crisis Hotline: 451.419.6156 or 741-871-6651. MANUAL Your Guide to a Healthy manual is now on-line. Visit [email or web address] to download your free copy documented in this encounterAdena Health System01-02-2025 Progress note* Quick Notes - Shiv Mckeon MD - 02/26/2024 1:41 PM EST KJ - VB No. LOF No. CTXS No. Movement: present. Other c/o: No. Medication list reviewed. Physical Exam See Flow Sheet Gen: no accute distress, well appearing A/P 21w6d Estimated Date of Delivery: 07/02/24 Anatomy US today Shiv Mckeon MD [facility]01-02-2025 Miscellaneous Notes* Quick Notes - Shiv Mckeon MD - 02/26/2024 1:41 PM EST KJ - VB No. LOF No. CTXS No. Movement: present. Other c/o: No. Medication list reviewed. Physical Exam See Flow Sheet Gen: no accute distress, well appearing A/P 21w6d Estimated Date of Delivery: 07/02/24 Anatomy US today Shiv Mckeon MD documented in this encounterAdena Health System01-02-2025 Instructions* Patient Instructions* Shiv Mckeon MD - 02/26/2024 10:06 AM EST SEQUENTIAL SCREENINGS The [facility] offers sequential screenings for women who are interested in screenings for chromosomal abnormalities and certain defects during a . The sequential screen combinesultrasound and blood tests to determine the risk of chromosomal abnormalities, including Down's Syndrome (Trisomy 21) and Trisomy 18, as well as open neural tube defects including spina bifida. Ultrasound examination is performed between 11 weeks and 13 weeks gestational age. Blood tests are drawn after the ultrasound and again later in the between 15 and 21 weeks gestational age. Please let your physician know if you are interested in this testing. It will require an appointment withour psychology technician. This is not an ultrasound performed by a physician in our office during a routine visit. SIGNS AND SYMPTOMS OF LABOR 1. Contractions every 10 minutes or more often 2. Clear, pink, or brownish fluid (water) leaking from vagina 3. Feeling that baby is pushing down, pressure 4. Low, dull backache 5. Cramps that feel like a period 6. Cramps with or without diarrhea If you notice any of the above symptoms, contact our office at [phone] and ask to speak with anurse. After hours, you can call doctors registry at [phone] OR call [facility] at [phone] ask to have the doctor substation operator helper paged. If you consider this an emergency, dial 9-1-4 or go to your nearest emergency department. NEED HELP? Are you dealing with a violent or abusive relationship? Are you a victim of rape or sexual assult? Call [facility] ([place]) 24 hour Crisis Hotline: 303.924.3502 or 380-583-2963. MANUAL Your Guide to a Healthy manual is now on-line. Visit [email or web address] to download your free copy Safe Medications to Take During for Cold and Flu Diphenhydramine (Benadryl) Dextromethorphan (Robitussin) Guaifenesin (Mucinex [plain]) Vicks Vapor Rub mentholated cream Mentholated or non-mentholated cough drops (Sugar free cough drops for gestational diabetes should not contain blends of herbs or aspartame) Acetaminophen (Tylenol) Saline nasal drops or spray Warm salt/water gargle *Note: Do not take the SA (Sustained Action) form of these drugs or the Multi Symptom form of these drugs Do not use Nyquil or a generic version, due to its high alcohol content documented in this encounterAdena Health System11-22-2024 Progress note* Quick Notes - Sarkis Webber APRN.CNP - 01/16/2024 2:33 PM EST EH - S: Zan is a 33 year old female who presents at 16w0d for a routine visit. Feeling movement. Denies headache, visual changes, chest pain, shortness of breath, vaginal bleeding, leakage of fluid, or dysuria. O: See flow sheet Gen: No apparent distress Abd: Gravid, nontender ASSESSMENT/PLAN: 1. Encounter for supervision of other normal in second trimester - ICD9: V22.1, ICD10: Z34.82 (primary diagnosis) - Headaches - already taking Magnesium. Has stopped caffeine use: recommend 1-2 servings per day again - Nausea improving, not taking LDA because it was causing vomiting - Asking about massage 2. 16 weeks gestation of - ICD9: V22.2, ICD10: Z3A.16 - Anatomy ultrasound next visit 3. Obesity affecting in second trimester, unspecified obesity type - ICD9: 649.13, ICD10:O99.212 - Pre BMI 31 PTL precautions reviewed. RTO in 4 weeks or sooner as needed. Sarkis Webber APRN.CNP [facility]11-22-2024 Miscellaneous Notes* Quick Notes - Sarkis Webber APRN.CNP - 01/16/2024 2:33 PM EST EH - S: Zan is a 33 year old female who presents at 16w0d for a routine visit. Feeling movement. Denies headache, visual changes, chest pain, shortness of breath, vaginal bleeding, leakage of fluid, or dysuria. O: See flow sheet Gen: No apparent distress Abd: Gravid, nontender ASSESSMENT/PLAN: 1. Encounter for supervision of other normal in second trimester - ICD9: V22.1, ICD10: Z34.82 (primary diagnosis) - Headaches - already taking Magnesium. Has stopped caffeine use: recommend 1-2 servings per day again - Nausea improving, not taking LDA because it was causing vomiting - Asking about massage 2. 16 weeks gestation of - ICD9: V22.2, ICD10: Z3A.16 - Anatomy ultrasound next visit 3. Obesity affecting in second trimester, unspecified obesity type - ICD9: 649.13, ICD10:O99.212 - Pre BMI 31 PTL precautions reviewed. RTO in 4 weeks or sooner as needed. Sarkis Webber APRN.CNP documented in this encounterA[facility]11-22-2024 Instructions* Patient Instructions* Margarita Chaves MA - 01/16/2024 2:27 PM EST SEQUENTIAL SCREENINGS The [facility] offers sequential screenings for women who are interested in screenings for chromosomal abnormalities and certain defects during a . The sequential screen combinesultrasound and blood tests to determine the risk of chromosomal abnormalities, including Down's Syndrome (Trisomy 21) and Trisomy 18, as well as open neural tube defects including spina bifida. Ultrasound examination is performed between 11 weeks and 13 weeks gestational age. Blood tests are drawn after the ultrasound and again later in the between 15 and 21 weeks gestational age. Please let your physician know if you are interested in this testing. It will require an appointment withour psychology technician. This is not an ultrasound performed by a physician in our office during a routine visit. SIGNS AND SYMPTOMS OF LABOR 1. Contractions every 10 minutes or more often 2. Clear, pink, or brownish fluid (water) leaking from vagina 3. Feeling that baby is pushing down, pressure 4. Low, dull backache 5. Cramps that feel like a period 6. Cramps with or without diarrhea If you notice any of the above symptoms, contact our office at [phone] and ask to speak with anurse. After hours, you can call doctors registry at [phone] OR call [facility] at [phone] ask to have the doctor substation operator helper paged. If you consider this an emergency, dial 9-3-3 or go to your nearest emergency department. NEED HELP? Are you dealing with a violent or abusive relationship? Are you a victim of rape or sexual assult? Call [facility] ([place]) 24 hour Crisis Hotline: 508.982.1307 or 324-841-6202. MANUAL Your Guide to a Healthy manual is now on-line. Visit [email or web address] to download your free copy documented in this encounterAdena Health System10-25-2024 Progress note* Quick Notes - Jeanna Ferrera APRN.CNM - 12/19/2023 9:17 AM EDT S: Zan Santos is a 33 year old female who presents at 12 weeks gestation for a routine visit. Just completed NT US. Declines blood work. Occasional nausea without emesis. Denies headache, visual changes, chest pain, shortness of breath, vaginal bleeding, leakage of fluid, or dysuria. Feelingwell, no complaints. O: See flow sheet Gen: No apparent distress Abd: Gravid, nontender ASSESSMENT/PLAN: 1. Encounter for supervision of other normal in first trimester - ICD9: V22.1, ICD10: Z34.81 (primary diagnosis) 2. 12 weeks gestation of - ICD9: V22.2, ICD10: Z3A.12 - Vit B 6 and Unisom for nausea - PTL / Bleeding precautions reviewed - RTO 4 weeks Jeanna Ferrera APRN.CNM [facility]10-25-2024 Miscellaneous Notes* Quick Notes - Jeanna Ferrera APRN.CNM - 12/19/2023 9:17 AM EDT S: Zan Santos is a 33 year old female who presents at 12 weeks gestation for a routine visit. Just completed NT US. Declines blood work. Occasional nausea without emesis. Denies headache, visual changes, chest pain, shortness of breath, vaginal bleeding, leakage of fluid, or dysuria. Feelingwell, no complaints. O: See flow sheet Gen: No apparent distress Abd: Gravid, nontender ASSESSMENT/PLAN: 1. Encounter for supervision of other normal in first trimester - ICD9: V22.1, ICD10: Z34.81 (primary diagnosis) 2. 12 weeks gestation of - ICD9: V22.2, ICD10: Z3A.12 - Vit B 6 and Unisom for nausea - PTL / Bleeding precautions reviewed - RTO 4 weeks Jeanna Ferrera APRN.CNM documented in this encounterAdena [facility] System10-25-2024 Instructions* Patient Instructions* Jeanna Ferrera APRN.CNM - 12/19/2023 9:01 AM EDT As you may already know, morning sickness can often be more appropriately called evening sickness or eacfd-tnktck-ta-the-day sickness. While there are the dior few, most women (50-90%) experience some degree of nausea, some have vomiting, and a few develop a severe form of vomiting duringpregnancy called hyperemesis gravidarum. What causes the nausea and vomiting of ? We can't explain why some people feel fine and others are green for months. Even the same woman mayfeel vastly different in each . There is some relationship between nausea and the level ofthe hormone hCG. In twin pregnancies, and in other situations where the hCG is greater than expected, nausea and vomiting tend to be worse. In a destined for miscarriage, hCG levels tend to be low, and nausea is often less severe. This being said, a lack of nausea doesn't guarantee that the is destined for miscarriage. The fact that nausea and vomiting are often signs of a healthy can offer a silver lining in the dark cloud of miserable nausea. How long will the nausea last? Fortunately, for most women, nausea and vomiting are a first trimester event, peaking at week 9-10 and waning by week 14-16. When you are feeling bad the weeks can go by slowly but most momsdo feel tremendously better by the middle of the . Whether morning sickness is a brief experience or lasts through most of the , there are treatments that can make the weeks or months more tolerable. What can you do about it? Diet: See what works for you. Try eating bland dry foods, and avoid fatty or spicy foods. It is okay to eat a less than perfectly balanced diet in the first trimester. Have your liquids separately from dry foods. Try sports drinks, water, clear juices, Sergio-aid, or non-caffeinated tea. Avoid carbonated beverages that fill up your stomach. Try eating lots of little meals. If you tend to feel sick when you first wake up, leave crackers next to the bed for a quick snack before rising. Keeping healthy snacks with you all day to nibble when you feel queasy can sometimes even prevent nausea from starting. vitamins and nausea: Pre-maurice vitamins can sometimes worsen nausea in . While folate is necessary, especially early in the , it comes as a smaller pill that many people find more tolerable than the complete vitamin pill. Ask your practitioner if it is okay to temporarilyreplace vitamins and iron with just a folate pill if you find a significant worsening in the level of your nausea from the vitamins. Alternative therapies: Acupressure may be used to treat nausea in , and is not known to have any risks for the fetus. Wristbands (marketed for seasickness) that put pressure on an acupressure point at the wrist are often available at drugstores or travel stores. Pascale root is used for nausea in many traditional cultures. Some women take fresh grated pascale or pascale tablets. It is possible that the pill form contains other ingredients or contaminants, so you may want to try fresh pascale first. Medications: Emetrol is the only nausea medication approved for use in . It is available over the counter and is soothing to the stomach. A prescription medication called Bendectin was available in the 1970s-1979's and was shown to be safe in , but the company stopped marketing it in the [place] due to the costs of liability coverage. Bendectin contained 10 milligrams of vitamin B6 and 10 milligrams of Doxylamine. Two tablets were given at bedtime and a total of up to 4 tablets could be used in a 24-hour period. Interestingly, Unisom , which contains a higher dose (25 mg.) of the same medication, Doxylamine, is currently marketed as an kkqs-gok-fxizkrx sleeping pill. Ask your practitioner if creating a vitamin B6/Doxylaminecombination with vtfa-qpg-dvwrnzr medications would be safe for you. Prescription medications like Compazine and Phenergan can be used if the benefits outweigh possiblerisks, but these have not been clearly shown to be safe in . Zofran , an expensive anti-nausea medication often used to treat nausea from chemotherapy, can also be used. Can I throw up so much it harms the baby? The act of vomiting cannot hurt your fetus, which is protected inside the uterus. If you get dehydrated or develop a metabolic imbalance, this can be unhealthy. As long as you can keep down liquids, you and your baby will generally do all right. Eat when you feel able. If you are unable to keep anyt amanda down, or if you notice potential signs of dehydration such as lightheadedness, or concentratedand/or infrequent urination, call your practitioner. Some women need brief hospital admission for intravenous fluids and anti-nausea medications if their condition becomes severe. This severe form ofnausea and vomiting is called Hyperemesis Gravidarum. As with many symptoms of , remind yourself that this, too, shall pass, and you'll have a wonderful baby to show for it! TREATMENT OPTIONS, SHORT VERSION: Frequent small meals Hydrate throughout day [employer] wrist pressure point applicators Pascale root (powdered, in capsules) 250mg four times a day Vitamin B6 25 mg tablet three times a day Also may be taken with half a tablet of Unisom three times a day (Doxylamine 12.5 mg) If severe (weight loss, dehydration), call us and come in for IV hydration and possible medication in the form of injections. Prescription medications such as Phenergan, Compazine, ReglanSEQUENTIAL SCREENINGS The [facility] offers sequential screenings for women who are interested in screenings for chromosomal abnormalities and certain defects during a . The sequential screen combinesultrasound and blood tests to determine the risk of chromosomal abnormalities, including Down's Syndrome (Trisomy 21) and Trisomy 18, as well as open neural tube defects including spina bifida. Ultrasound examination is performed between 11 weeks and 13 weeks gestational age. Blood tests are drawn after the ultrasound and again later in the between 15 and 21 weeks gestational age. Please let your physician know if you are interested in this testing. It will require an appointment withour psychology technician. This is not an ultrasound performed by a physician in our office during a routine visit. SIGNS AND SYMPTOMS OF LABOR 1. Contractions every 10 minutes or more often 2. Clear, pink, or brownish fluid (water) leaking from vagina 3. Feeling that baby is pushing down, pressure 4. Low, dull backache 5. Cramps that feel like a period 6. Cramps with or without diarrhea If you notice any of the above symptoms, contact our office at [phone] and ask to speak with anurse. After hours, you can call doctors registry at [phone] OR call [facility] at [phone] ask to have the doctor substation operator helper paged. If you consider this an emergency, dial 2--3 or go to your nearest emergency department. NEED HELP? Are you dealing with a violent or abusive relationship? Are you a victim of rape or sexual assult? Call [facility] ([place]) 24 hour Crisis Hotline: 806.188.6992 or 184-185-7509. MANUAL Your Guide to a Healthy manual is now on-line. Visit [email or web address] to download your free copy documented in this encounterAdena [facility] System09-13-2024 NoteHNO ID: [id number] Author: SARKIS WEBBER APRN.CNP Service: ? Author Type: Nurse Practitioner Type: Progress Notes Filed: 11/14/2023 13:37 Note Text: INITIAL OB ASSESSMENT HPI: Zan is a 33 year old White Female here to establish Obstetrical Care. Patient's last menstrual period was 09/26/2023 (exact date). from OB Dating Form. was planned Complaints: Abdominal pain (sitting up, round ligament) and vaginal discharge (no itching or irritation) OB History T2 L2 SAB0 IAB0 Ectopic0 Multiple0 Live Births2 Previous history: Prior : never History of 4th degree laceration: No History of shoulder dystocia: No History of Hypertensive disorders including pre-eclampsia or gestational hypertension: No History of gestational diabetes: No Patient's Risk Screening for delivery: Have you had a prior de la torre between 20w and 36w6d? No How many pregnancies have you had before? 2 Did you have a previous baby with a GBS Infection? No Please select all that apply for any prior : N/A MEDICAL/PSYCHOSOCIAL HISTORY: History of hemorrhage or bleeding concerns: No Thyroid Disease: No History of chronic hypertension: No History of pre-existing diabetes: No No results found for: ABORHD BMI 33.48 kg/(m2) Last Pap: History of abnormal pap: No Prior treatment for cervical dysplasia: none. Last HPV: History of STDs: None Partner History of STDs: None Did you have a partner with Herpes? No Tobacco use: No E-Cigarette/Vaping Use: No Caffeine use: Yes, limited Drug use: No Alcohol use: No Multivitamin with Folic acid: Yes Would refuse blood transfusion if medically necessary: No Social Needs: How often does this describe you? I don't have enough money to pay my bills: Never Within the past 12 months, have you worried that your food would run out before you had money to buy more? Never In the past 12 months, has lack of reliable transportation kept you from going to medical appointments or work, or from getting things needed for daily living? Never In the past 12 months, have you had any concerns about having a place to live, or about the condition or quality of your housing? Never Social History: Do you have any history of depression, anxiety, PTSD, or other mood problems? No Do you have a history of abuse or trauma that may impact your experience? No Are you currently employed? No Depression/Anxiety Screening: denies symptoms of depression. OB Depression and Anxiety Screening- This Encounter (since 11/13/2023) Over the past 2 weeks have you felt down, depressed, or hopeless? Negative Over the past two weeks, have you felt little interest or pleasure in doing things?? Negative Feeling nervous, anxious or on edge 0-Not at all Not being able to stop or control worrying 0-Not al all Anxiety Pre-Screening Total (If >/= 3 additional questions will be reviewed) 0 Genetic Screening: Partner present: No Patient verbalized knowledge of partner family health history: Yes Do you or your partner have any personal or family history of defects not previously discussed: No Do you have history of a complicated by anomaly, genetic condition, or demise: No OB Risk Screening: Completed, no positive findings documented. Marital Status: Partner: Name: William Age: 33 Occupation: [employer] Gender: Male PAST MEDICAL HISTORY Diagnosis Date No known health problems PAST SURGICAL HISTORY Procedure Laterality Date NONE Current Outpatient Medications Medication Sig Dispense Refill vits62/FA/om3/dha/epa ( GUMMY ORAL) Take 2 Pieces by mouth once daily. OTC NUTRITIONAL SUPPLEMENT Take 1 tablet by mouth once daily. Calcium, Magnesium, and Zinc supplement No current facility-administered medications for this visit. Allergies As of Date: 11/14/2023 (No Known Allergies) Fully Assessed 11/14/2023 Does patient have penicillin allergy: No REVIEW OF SYSTEMS: GENERAL: Negative for: Fever or Chills HEENT: Negative for: Impaired Vision, Ringing in Ears, Nosebleeds + headache NECK: Negative for: Swelling, Pain, Stiffness RESPIRATORY: Negative for: Cough, Shortness of breath, Wheezing GASTROINTESTINAL: Negative for: Heartburn, Constipation, Diarrhea, Blood in stool, Vomiting MUSCULOSKELETAL: Negative for: Muscle or joint pain, stiffness, Joint swelling NEUROLOGIC/PSYCHIATRIC: Negative for: Weakness, Paralysis, Numbness, Tingling, Tremor, Anxiety, Depression, Memory loss SKIN: Negative for: Rash, Itching GENITOURINARY: Negative for: vaginal itching, vaginal discharge, hematuria or dysuria SENSITIVE EXAM: The sensitive examination was discussed with the Patient or Patient's Authorized Bulk Fluids Handler. As applicable, any other physician, advance practice provider, medical student, (more content not included)... [facility]09-13-2024 History of Present illness Narrative* Sarkis Webber, RHONDA.ROVING MACHINE OPERATOR - 11/07/2023 12:59 PM EDT INITIAL OB ASSESSMENT HPI: Zan is a 33 year old White Female here to establish Obstetrical Care. Patient's last menstrual period was 09/26/2023 (exact date). from OB Dating Form. was planned Complaints: Abdominal pain (sitting up, round ligament) and vaginal discharge (no itching or irritation) OB History T2 L2 SAB0 IAB0 Ectopic0 Multiple0 Live Births2 Previous history: Prior : never History of 4th degree laceration: No History of shoulder dystocia: No History of Hypertensive disorders including pre-eclampsia or gestational hypertension: No History of gestational diabetes: No Patient's Risk Screening for delivery: Have you had a prior de la torre between 20w and 36w6d? No How many pregnancies have you had before? 2 Did you have a previous baby with a GBS Infection? No Please select all that apply for any prior : N/A MEDICAL/PSYCHOSOCIAL HISTORY: History of hemorrhage or bleeding concerns: No Thyroid Disease: No History of chronic hypertension: No History of pre-existing diabetes: No No results found for: ABORHD BMI 33.48 kg/(m^2) Last Pap: History of abnormal pap: No Prior treatment for cervical dysplasia: none. Last HPV: History of STDs: None Partner History of STDs: None Did you have a partner with Herpes? No Tobacco use: No E-Cigarette/Vaping Use: No Caffeine use: Yes, limited Drug use: No Alcohol use: No Multivitamin with Folic acid: Yes Would refuse blood transfusion if medically necessary: No Social Needs: How often does this describe you? I don't have enough money to pay my bills: Never Within the past 12 months, have you worried that your food would run out before you had money to buy more? Never In the past 12 months, has lack of reliable transportation kept you from going to medical appointments or work, or from getting things needed for daily living? Never In the past 12 months, have you had any concerns about having a place to live, or about the condition or quality of your housing? Never Social History: Do you have any history of depression, anxiety, PTSD, or other mood problems? No Do you have a history of abuse or trauma that may impact your experience? No Are you currently employed? No Depression/Anxiety Screening: denies symptoms of depression. OB Depression and Anxiety Screening- This Encounter (since 11/13/2023) Over the past 2 weeks have you felt down, depressed, or hopeless? Negative Over the past two weeks, have you felt little interest or pleasure in doing things? Negative Feeling nervous, anxious or on edge 0-Not at all Not being able to stop or control worrying 0-Not al all Anxiety Pre-Screening Total (If >/= 3 additional questions will be reviewed) 0 Genetic Screening: Partner present: No Patient verbalized knowledge of partner family health history: Yes Do you or your partner have any personal or family history of defects not previously discussed: No Do you have history of a complicated by anomaly, genetic condition, or demise: No OB Risk Screening: Completed, no positive findings documented. Marital Status: Partner: Name: William Age: 33 Occupation: [employer] Gender: Male PAST MEDICAL HISTORY Diagnosis Date No known health problems PAST SURGICAL HISTORY Procedure Laterality Date NONE Current Outpatient Medications Medication Sig Dispense Refill vits62/FA/om3/dha/epa ( GUMMY ORAL) Take 2 Pieces by mouth once daily. OTC NUTRITIONAL SUPPLEMENT Take 1 tablet by mouth once daily. Calcium, Magnesium, and Zinc supplement No current facility-administered medications for this visit. Allergies As of Date: 11/14/2023 (No Known Allergies) Fully Assessed 11/14/2023 Does patient have penicillin allergy: No REVIEW OF SYSTEMS: GENERAL: Negative for: Fever or Chills HEENT: Negative for: Impaired Vision, Ringing in Ears, Nosebleeds + headache NECK: Negative for: Swelling, Pain, Stiffness RESPIRATORY: Negative for: Cough, Shortness of breath, Wheezing GASTROINTESTINAL: Negative for: Heartburn, Constipation, Diarrhea, Blood in stool, Vomiting MUSCULOSKELETAL: Negative for: Muscle or joint pain, stiffness, Joint swelling NEUROLOGIC/PSYCHIATRIC: Negative for: Weakness, Paralysis, Numbness, Tingling, Tremor, Anxiety, Depression, Memory loss SKIN: Negative for: Rash, Itching GENITOURINARY: Negative for: vaginal itching, vaginal discharge, hematuria or dysuria SENSITIVE EXAM: The sensitive examination was discussed with the Patient or Patient's Authorized Bulk Fluids Handler. As applicable, any other physician, advance practice provider, medical student, or other health professional student that will be observing or involved in the sensitive examination for educational or training purposes was discussed with the Patient or Authorized Bulk Fluids Handler. The Patient or Authorized Bulk Fluids Handler has agreed to proceed with the sensitive examination. (Sensitive examination includes inspection and/or palpation of the breasts, pelvis, prostate and anorectal regions). PHYSICAL EXAM: BP 112/68 Ht 5' 3.5 (1.61m) Wt 192 lb (87.1kg) LMP 09/26/2023 BMI 33.47 kg/(m^2). GENERAL: pleasant in no apparent distress DERMATOLOGY: Normal, without lesions, non-icteric, and non-hirsute NECK: Supple, full range of motion, no adenopathy, and thyroid normal CHEST: Normal inspiratory effort BREAST: soft, non-tender, symmetric, no dominant mass, normal nipple-areolar complex, no lymphadenopathy, and no nipple discharge ABDOMEN: soft, non-tender, and no masses NEURO: alert and oriented x3,exam grossly non-focal PELVIS: External genitalia normal without lesions. Perineal body intact. No cervical lesions. + 0.5cm skin tag to superior right labia majora. Cervix closed. Uterus 7 week size. No adnexal masses ortenderness. Clinical Pelvimetry: Pelvimetry clinically assessed as adequate Limited OB ultrasound exam: single intrauterine and positive cardiac activity ASSESSMENT: 33 year old at 7w0d wks gestational age PLAN: 1) Patient oriented to practice. Patient given new OB orientation folder. Discussed nutrition, folic acid supplementation, dietary guidelines, exercise, smoking, alcohol, caffeine, and drug use. Discussed gestational weight gain guidelines. Discussed routine OB labs including STD/HIV. Discussed how to access Your guide to a health and the Dialysis Biomed Technician. Discussed hemoglobin electrophoresis. Patient: Declines Reviewed midwifery and petroleum supply specialist services that are available. 2) Screening: Hemoglobin A1C: ordered Baby Aspirin: The patient has been counseled about the potential benefits of low dose aspirin in and our recommendation that this be offered to all patients, regardless of whether they meet the high risk criteria specified above. She Accepts Aneuploidy Screening: Discussed aneuploidy screening, nuchal translucency/first trimester early anatomy ultrasound and NIPT. The risks/benefits and limitations of NIPT/aneuploidy screening were reviewed including the potential for false negative and false positive results. The availability of genetic counseling was reviewed. Information on aneuploidy screening was provided. The patient chooses toproceed with First trimester early anatomy ultrasound (12-13w6d) Myriad Carrier Screening: Discussed myriad carrier screening. We discussed the availability of professional-society guided carrier screening and reviewed the conditions screened and limitations of screening. The availability of genetic counseling was reviewed. Information on carrier screening was provided. The patient Declines 3) Patient offered option of Virtual Visits. Patient prefers in person visits. ACTIVE PROBLEM LIST Supervision of Normal - 11/14/2023 Comment: Care Checklist Vaccines: [] Flu vaccine [] declined [] RSV vaccine 32 0/7 - 36 6/7 (Oct - Mar) [] declined [] COVID vaccine [] declined [] TDaP 27-36 [] declined First trimester: [x] Dating US [] 1st tri labs [x] Pap smear [] Carrier screening [x] declined [] NIPT screening [x] declined [x] First trimester anatomy scan [] declined [x] universal ASA ordered (start 12w-16w) [] declined [] M Power Consult [] not indicated [] declined Second trimester: [] AFP [] declined [] Anatomy scan [] Mode of Delivery - [] Feeding - [] Pump ordered [] Diabetes screen [] CBC, RPR Third trimester (28-30 weeks): [] Consent [] Contraception - [] Malter Operator Third trimester (36-40 weeks): [] GBS [] Presentation - [] Scheduled [] yes - Hibiclens, pre-op instructions, CBC, T&S ordered [] no [] H&P History of Headache - 11/14/2023 Comment: Discussed Tylenol and Magnesium. Obesity Affecting in First Trimester - 11/14/2023 Comment: Pre BMI 33 Follow up in 4 weeks or sooner prn. Plan for NT scan between 12w0d and 13w6d gestation. Sarkis Webber APRN.BONNIE documented in [facility] encounter[facility] Instructions* Patient Instructions* Veena Snyder MA - 11/07/2023 12:59 PM EDT Please select the following link to access the [facility] Your Guide to a Healthy . [email or web address] Please select the following link to access the [facility] Your Guide to a Healthy . [email or web address] documented in this encounterAdena [facility] SystemEvaludelaware [facility] noteNo assessment information availableWHenry County Hospital Work Phone: Evaluation note* Diagnosis Encounter for supervision of other normal in first trimester- Primary 7 weeks gestation of state, incidental with uncertain dates in first trimester Encounter for screening for malignant neoplasm of cervix Screening for malignant neoplasm of the cervix Special screening examination for human papillomavirus (HPV) History of headache Personal history of other specified diseases Obesity affecting in first trimester, unspecified obesity type documented in this encounter [facility]* Diagnosis Encounter for supervision of other normal in first trimester- Primary 12 weeks gestation of state, incidental Nausea Nausea alone documented in this encounter [facility]* Diagnosis Encounter for screening for malformation using ultrasound- Primary 12 weeks gestation of state, incidental Encounter for (NT) nuchal translucency scan Other specified screening [facility]* Diagnosis Encounter for supervision of other normal in second trimester- Primary 16 weeks gestation of state, incidental Obesity affecting in second trimester, unspecified obesity type [facility]* Diagnosis Encounter for supervision of other normal in second trimester- Primary 21 weeks gestation of state, incidental documented in this encounter [facility] note* Diagnosis Encounter for routine screening for malformation using ultrasonics- Primary Obesity in , antepartum Obesity complicating , childbirth, or the puerperium, antepartum condition or complication 21 weeks gestation of state, incidental Class 1 obesity due to excess calories with body mass index (BMI) of 33.0 to 33.9 in adult, unspecified whether serious comorbidity present Maternal obesity syndrome in second trimester documented in this encounter [facility] note* Diagnosis 26 weeks gestation of - Primary state, incidental Screening for diabetes mellitus Encounter for supervision of other normal in second trimester [facility]* Diagnosis 26 weeks gestation of - Primary state, incidental Vaginal odor Unspecified symptom associated with female genital organs Encounter for supervision of other normal in second trimester [facility]* Diagnosis Encounter for supervision of other normal in third trimester- Primary 30 weeks gestation of state, incidental Request for sterilization documented in this encounter [facility] note* Diagnosis Encounter for supervision of other normal in third trimester- Primary 31 weeks gestation of state, incidental Anemia complicating , third trimester * Assessment & Plan Note - Shiv Mckeon MD - 05/06/2024 10:51 AM EDTAssociated Problem(s): Supervision of normal documented in this encounter [facility] note* Diagnosis Encounter for supervision of other normal in third trimester- Primary 31 weeks gestation of state, incidental Anemia complicating , third trimester Encounter for supervision of other normal in third trimester- Primary Anemia complicating , third trimester Obesity in , antepartum Obesity complicating , childbirth, or the puerperium, antepartum condition or complication 33 weeks gestation of state, incidental * Assessment & Plan Note - Sara Blankenship MD - 05/19/2024 10:26 AM EDTAssociated Problem(s): Supervision of normal documented in this encounter [facility] note* Diagnosis Encounter for supervision of other normal in third trimester (HCC)- Primary 31 weeks gestation of (HCC) state, incidental Anemia complicating , third trimester ([facility]) Encounter for supervision of other normal in third trimester ([facility])- Primary Anemia complicating , third trimester (HCC) Obesity in , antepartum (HCC) Obesity complicating , childbirth, or the puerperium, antepartum condition or complication 33 weeks gestation of (HCC) state, incidental Obesity in , antepartum (HCC)- Primary Obesity complicating , childbirth, or the puerperium, antepartum condition or complication 36 weeks gestation of ([facility]) state, incidental Anemia complicating , third trimester ([facility]) documented in this encounter [facility] note* Diagnosis Encounter for supervision of other normal in third trimester (HCC)- Primary 31 weeks gestation of (HCC) state, incidental Anemia complicating , third trimester ([facility]) Encounter for supervision of other normal in third trimester (HCC)- Primary Anemia complicating , third trimester (HCC) Obesity in , antepartum (HCC) Obesity complicating , childbirth, or the puerperium, antepartum condition or complication 33 weeks gestation of (HCC) state, incidental Obesity in , antepartum (HCC)- Primary Obesity complicating , childbirth, or the puerperium, antepartum condition or complication 37 weeks gestation of (HCC) state, incidental Anemia complicating , third trimester ([facility]) Encounter for supervision of other normal in third trimester ([facility]) documented in this encounter [facility] note* Diagnosis Abnormal glucose complicating (HCC)- Primary Abnormal maternal glucose tolerance, complicating , childbirth, or the puerperium, unspecified as to episode of care Encounter for supervision of other normal in third trimester (HCC)- Primary 31 weeks gestation of (HCC) state, incidental Anemia complicating , third trimester (HCC) Encounter for supervision of other normal in third trimester (HCC)- Primary Anemia complicating , third trimester (HCC) Obesity in , antepartum (HCC) Obesity complicating , childbirth, or the puerperium, antepartum condition or complication 33 weeks gestation of (HCC) state, incidental 38 weeks gestation of (HCC)- Primary state, incidental Anemia complicating , third trimester ([facility]) Obesity in , antepartum (HCC) Obesity complicating , childbirth, or the puerperium, antepartum condition or complication Encounter for supervision of other normal in third trimester ([facility]) documented in this encounter [facility]* Diagnosis Encounter for supervision of other normal in third trimester ([facility])- Primary 31 weeks gestation of ([facility]) state, incidental Anemia complicating , third trimester ([facility]) Encounter for supervision of other normal in third trimester ([facility])- Primary Anemia complicating , third trimester ([facility]) Obesity in , antepartum ([facility]) Obesity complicating , childbirth, or the puerperium, antepartum condition or complication 33 weeks gestation of (HCC) state, incidental 38 weeks gestation of ([facility])- Primary state, incidental Anemia complicating , third trimester ([facility]) Obesity in , antepartum ([facility]) Obesity complicating , childbirth, or the puerperium, antepartum condition or complication Encounter for supervision of other normal in third trimester ([facility]) Anemia complicating , third trimester ([facility])- Primary Obesity in , antepartum (HCC) Obesity complicating , childbirth, or the puerperium, antepartum condition or complication documented in this encounter [facility]* Diagnosis Encounter for supervision of other normal in third trimester (HCC)- Primary 31 weeks gestation of ([facility]) state, incidental Anemia complicating , third trimester ([facility]) Encounter for supervision of other normal in third trimester ([facility])- Primary Anemia complicating , third trimester ([facility]) Obesity in , antepartum (HCC) Obesity complicating , childbirth, or the puerperium, antepartum condition or complication 33 weeks gestation of (HCC) state, incidental 38 weeks gestation of (HCC)- Primary state, incidental Anemia complicating , third trimester (HCC) Obesity in , antepartum (HCC) Obesity complicating , childbirth, or the puerperium, antepartum condition or complication Encounter for supervision of other normal in third trimester (HCC) Anemia complicating , third trimester (HCC)- Primary 40 weeks gestation of (HCC) state, incidental Obesity in , antepartum (HCC) Obesity complicating , childbirth, or the puerperium, antepartum condition or complication documented in this encounter [facility] note* Diagnosis Encounter for supervision of other normal in third trimester ([facility])- Primary 31 weeks gestation of ([facility]) state, incidental Anemia complicating , third trimester ([facility]) Encounter for supervision of other normal in third trimester ([facility])- Primary Anemia complicating , third trimester (HCC) Obesity in , antepartum (HCC) Obesity complicating , childbirth, or the puerperium, antepartum condition or complication 33 weeks gestation of (HCC) state, incidental 38 weeks gestation of ([facility])- Primary state, incidental Anemia complicating , third trimester ([facility]) Obesity in , antepartum (HCC) Obesity complicating , childbirth, or the puerperium, antepartum condition or complication Encounter for supervision of other normal in third trimester ([facility]) state ([facility])- Primary Routine follow-up Request for sterilization documented in this encounter [facility] note* Diagnosis Encounter for supervision of other normal in third trimester ([facility])- Primary 31 weeks gestation of (HCC) state, incidental Anemia complicating , third trimester (HCC) Encounter for supervision of other normal in third trimester ([facility])- Primary Anemia complicating , third trimester (HCC) Obesity in , antepartum (HCC) Obesity complicating , childbirth, or the puerperium, antepartum condition or complication 33 weeks gestation of (HCC) state, incidental 38 weeks gestation of ([facility])- Primary state, incidental Anemia complicating , third trimester (HCC) Obesity in , antepartum (HCC) Obesity complicating , childbirth, or the puerperium, antepartum condition or complication Encounter for supervision of other normal in third trimester (HCC) Request for sterilization- Primary Visit for pre-operative examination Preoperative examination, unspecified documented in this encounter [facility] for referral (narrative)* Diagnostic Procedure Only (Routine) - Pending Review Specialty Diagnoses / Procedures Referred By Chris ricardo Referred To Contact [facility] Diagnoses Encounter for supervision of other normal in first trimester 7 weeks gestation of Procedures NUCHAL TRANSLUCENCY WHI US NUCHAL TRANSLUCENCY 1ST GESTATION Sarkis Webber APRN.CNP [address] [place] [address] [facility] [place] [address] Referral ID Status Reason Start Date Expiration Date Visits Requested Visits Authorized [id number] Pending Review Auto-Generat ed Referral 11/14/2023 11/13/2024 1 1 [facility] for referral (narrative)* Diagnostic Procedure Only (Routine) - New Request Specialty Diagnoses / Procedures Referred By Chris ricardo Referred To Contact [facility] Diagnoses Encounter for supervision of other normal in first trimester Procedures OBSTETRIC ULTRASOUND WHI US PREG UTERUS AFTER 1ST TRIMEST GESTATION Jeanna Ferrera APRN.CNM [address] [place] [address] [facility] [place] [address] Referral ID Status Reason Start Date Expiration Date Visits Requested Visits Authorized [id number] New Request Auto-Generat ed Referral 12/18/2024 1 1 [facility] for referral (narrative)No reason for referral information availableWHenry County Hospital Work Phone: Summary Purpose Family History No Family History Records FoundNo Family History Records FoundNo Family History Records FoundNo Family History Records Found Advance Directives No Advanced Directives Records Found Advance Directive Response Recorded Date/ Time Living Will No May 17, 2020 3:37pm Power of [employer] No May 17 3:37pm Advance Directive Response Recorded Date/ Time Do you have a Healthcare Power of [employer]? No July 05, 2024 7:36am Chief Complaint and Reason for Visit Chief Complaint CYCLE DAY Chief Complaint Admit Date VAGINAL DELIVERY July 05, 2024 7:00a m Reason for Visit Admit Date 40 weeks gestation of June 7:00am Elective induction of labor planned July 05, 2024 7:00am Second degree perineal laceration July 052024 7:00am Vaginal delivery July 05, 2024 7:00a m Additional Source Comments INFORMATION SOURCE (unrecogn ized section and content) DATE CREATED AUTHOR 05/08/2020 [facility] DATE CREATED AUTHOR AUTHOR'S ORGANIZ ATION 01/08/2023 [facility] DATE CREATED AUTHOR AUTHOR'S ORGANIZ ATION 08/17/2024 [facility] DATE CREATED AUTHOR AUTHOR'S ORGANIZ ATION 08/24/2024 [facility] Goals (unrecognized section and content) Goals may be documented in a n alternate section Source Comments (unrecognize d section and content) In the event this informatio n is protected by the Federal Confidentiality of Alcohol and Drug Abuse Patient Records regulations: The Federal rules restrict any use of the information to criminally investigate or prosecute any alcohol or drug abuse patient.[facility] SystemIn the event this information is protected by the Federal Confidentiality of Alcohol and Drug Abuse Patient Records regulations: The Federal rules restrict any use of the information to criminally investigate or prosecute any alcohol or drug abuse patient.[facility] SystemIn the event this information is protected by the Federal Confidentiality of Alcohol and Drug Abuse Patient Records regulations: The Federal rules restrict any use of the information to criminally investigate or prosecute any alcohol or drug abuse patient.[facility] SystemIn the event this information is protected by the Federal Confidentiality of Alcohol and Drug Abuse Patient Records regulations: The Federal rules restrict any use of the information to criminally investigate or prosecute any alcohol or drug abuse patient.[facility] SystemIn the event this information is protected by the Federal Confidentiality of Alcohol and Drug Abuse Patient Records regulations: The Federal rules restrict any use of the information to criminally investigate or prosecute any alcohol or drug abuse patient.[facility] SystemIn the event this information is protected by the Federal Confidentiality of Alcohol and Drug Abuse Patient Records regulations: The Federal rules restrict any use of the information to criminally investigate or prosecute any alcohol or drug abuse patient.[facility] SystemIn the event this information is protected by the Federal Confidentiality of Alcohol and Drug Abuse Patient Records regulations: The Federal rules restrict any use of the information to criminally investigate or prosecute any alcohol or drug abuse patient.[facility] SystemIn the event this information is protected by the Federal Confidentiality of Alcohol and Drug Abuse Patient Records regulations: The Federal rules restrict any use of the information to criminally investigate or prosecute any alcohol or drug abuse patient.[facility] SystemIn the event this information is protected by the Federal Confidentiality of Alcohol and Drug Abuse Patient Records regulations: The Federal rules restrict any use of the information to criminally investigate or prosecute any alcohol or drug abuse patient.[facility] SystemIn the event this information is protected by the Federal Confidentiality of Alcohol and Drug Abuse Patient Records regulations: The Federal rules restrict any use of the information to criminally investigate or prosecute any alcohol or drug abuse patient.[facility] SystemIn the event this information is protected by the Federal Confidentiality of Alcohol and Drug Abuse Patient Records regulations: The Federal rules restrict any use of the information to criminally investigate or prosecute any alcohol or drug abuse patient.[facility] SystemIn the event this information is protected by the Federal Confidentiality of Alcohol and Drug Abuse Patient Records regulations: The Federal rules restrict any use of the information to criminally investigate or prosecute any alcohol or drug abuse patient.[facility] SystemIn the event this information is protected by the Federal Confidentiality of Alcohol and Drug Abuse Patient Records regulations: The Federal rules restrict any use of the information to criminally investigate or prosecute any alcohol or drug abuse patient.[facility] SystemIn the event this information is protected by the Federal Confidentiality of Alcohol and Drug Abuse Patient Records regulations: The Federal rules restrict any use of the information to criminally investigate or prosecute any alcohol or drug abuse patient.[facility] SystemIn the event this information is protected by the Federal Confidentiality of Alcohol and Drug Abuse Patient Records regulations: The Federal rules restrict any use of the information to criminally investigate or prosecute any alcohol or drug abuse patient.[facility] SystemIn the event this information is protected by the Federal Confidentiality of Alcohol and Drug Abuse Patient Records regulations: The Federal rules restrict any use of the information to criminally investigate or prosecute any alcohol or drug abuse patient.[facility] SystemIn the event this information is protected by the Federal Confidentiality of Alcohol and Drug Abuse Patient Records regulations: The Federal rules restrict any use of the information to criminally investigate or prosecute any alcohol or drug abuse patient.[facility] SystemIn the event this information is protected by the Federal Confidentiality of Alcohol and Drug Abuse Patient Records regulations: The Federal rules restrict any use of the information to criminally investigate or prosecute any alcohol or drug abuse patient.[facility] SystemIn the event this information is protected by the Federal Confidentiality of Alcohol and Drug Abuse Patient Records regulations: The Federal rules restrict any use of the information to criminally investigate or prosecute any alcohol or drug abuse patient.[facility] SystemIn the event this information is protected by the Federal Confidentiality of Alcohol and Drug Abuse Patient Records regulations: The Federal rules restrict any use of the information to criminally investigate or prosecute any alcohol or drug abuse patient.[facility] SystemIn the event this information is protected by the Federal Confidentiality of Alcohol and Drug Abuse Patient Records regulations: The Federal rules restrict any use of the information to criminally investigate or prosecute any alcohol or drug abuse patient.[facility] SystemIn the event this information is protected by the Federal Confidentiality of Alcohol and Drug Abuse Patient Records regulations: The Federal rules restrict any use of the information to criminally investigate or prosecute any alcohol or drug abuse patient.[facility] Reason for Visit (unrecogniz ed section and content) Reason Comments Initial OB Visit Specialty Diagnoses / Procedures Referred By Chris ricardo Referred To Contact [facility] Diagnoses Encounter for general adult medical examination without abnormal findings office visit Procedures NEW LEVEL 2 VISIT Self [id number] [place] [address] Referral ID Status Reason Start Date Expiration Date Visits Requested Visits Authorized [id number] Authorized OON/Self Pay Override 11/03/2023 02/24/2024 99 99 Reason Onset Date Comments Care 12/19/2023 Reason Comments US Specialty Diagnoses / Procedures Referred By Chris ricardo Referred To Contact [facility] Diagnoses Encounter for supervision of other normal in first trimester 7 weeks gestation of Procedures NUCHAL TRANSLUCENCY WHI US NUCHAL TRANSLUCENCY 1ST GESTATION Sarkis Webber APRN.ROVING MACHINE OPERATOR [address] [place] [address] [address] Referral ID Status Reason Start Date Expiration Date Visits Requested Visits Authorized [id number] Pending Review Auto-Generat ed Referral 11/14/2023 11/13/2024 1 1 Reason Onset Date Comments Care 01/16/2024 Specialty Diagnoses / Procedures Referred By Chris ricardo Referred To Contact [facility] Diagnoses Encounter for general adult medical examination without abnormal findings office visit Procedures NEW LEVEL 2 VISIT Self [id number] [place] [address] Reason Onset Date Comments Care 02/26/2024 Specialty Diagnoses / Procedures Referred By Contac t Referred To Contact [facility] Diagnoses Obesity in , antepartum Procedures OBSTETRIC ULTRASOUND WHI US PREG UTERUS AFTER 1ST TRIMEST GESTATION Sara Blankenship MD [address] [place] [address] [facility] [address] [place] [address] Referral ID Status Reason Start Date Expiration Date V isits Requested Visits Authorized [id number] Denied Auto-Generated Referral Clearance Not Met -Financial Clearance Bypassed 02/26/2024 02/25/2025 1 0 Reason Onset Date Comments Care 03/26/2024 Reason Onset Date Comments Care 03/31/2024 Reason Onset Date Comments Care 04/23/2024 Reason Onset Date Comments Care 05/19/2024 Reason Onset Date Comments Care 06/04/2024 Reason Onset Date Comments Care 06/11/2024 Specialty Diagnoses / Procedures Referred By Contac t Referred To Contact 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 Specialty Start Date End Date Mu Fitzgerald MD [address] [place] [address] PCP - General Family Medicine 08/19/18 Fruit 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 Vegetable Factory Worker Relationship Specialty Start Date End Date Mu Fitzgerald MD [address] [place] [address] PCP - General Family Medicine 08/19/18 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 Vegetable Factory Worker Relationship Specialty Start Date End Date Mu Fitzgerald MD [address] [place] [address] PCP - General Family Medicine 08/19/18 Fruit And Vegetable Factory Worker Relationship Specialty Start Date End Date Mu Fitzgerald MD [address] [address] PCP - General Family Medicine 08/19/18 Fruit 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 Vegetable Factory Worker Relationship Specialty Start Date End Date Mu Fitzgerald MD [address] [place] [address] PCP - General Family Medicine 08/19/18 Fruit And Vegetable Factory Worker Relationship Specialty Start Date End Date Mu Fitzgerald MD [address] [place] [address] PCP - General Family Medicine 08/19/18 Fruit And Vegetable Factory Worker Relationship Specialty Start Date End Date Mu Fitzgerald MD [address] [place] [address] PCP - General Family Medicine 08/19/18 Fruit And Vegetable Factory Worker Relationship Specialty Start Date End Date Mu Fitzgerald MD [address] [address] PCP - General Family Medicine 08/19/18 Fruit And Vegetable Factory Worker Relationship Specialty Start Date End Date Mu Fitzgerald MD [address] [place] [address] PCP - General Family Medicine 08/19/18 Fruit And Vegetable Factory Worker Relationship Specialty Start Date End Date Mu Fitzgerald MD [address] [place] [address] PCP - General [facility] Medicine 08/19/18 Fruit And Vegetable Factory Worker Relationship Specialty Start Date End Date Mu Fitzgerald MD [address] [place] [address] PCP - General [facility] Medicine 08/19/18 Fruit And Vegetable Factory Worker Relationship Specialty Start Date End Date Mu Fitzgerald MD [address] [place] [address] PCP - General [facility] Medicine 08/19/18 Fruit And Vegetable Factory Worker Relationship Specialty Start Date End Date Mu Fitzgerald MD [address] [place] [address] PCP - [facility] Medicine 08/19/18 Fruit And Vegetable Factory Worker Relationship Specialty Start Date End Date Mu Fitzgerald MD [address] [address] PCP - General [facility] Medicine 08/19/18 Fruit And Vegetable Factory Worker Relationship Specialty Start Date End Date uM Fitzgerald MD [address] [place] [address] PCP - [facility] Medicine 08/19/18 Team Status: Active Member Role Status Dates Dr. Mu Fitzgerald MD Primary Care Provider Active Team Status: Inactive Member Role Status Dates Dr. Mu Fitzgerald MD Primary Care Provider Active Start: July 05, 2024 End: July 06, 2024 Dr. Amelia Howard , Admit Provider Active Star t: July 05, 2024 End: July 06, 2024 Dr. Amelia Howard , Attending Provider Active Start: July 05, 2024 End: July 06, 2024 Dr. Amelia Howard , Referring Provider Active Start: July 05, 2024 End: July 06, 2024 FOR RECORDS PERTAINING TO PATIENTS WHO ARE OR HAVE BEEN ENROLLED IN A CHEMICAL DEPENDENCY/SUBSTANCEABUSE PROGRAM, SOME INFORMATION MAY BE OMITTED. This clinical summary was aggregated from multiple sources. Caution should be exercised in using it in the provision of clinical care. This summary normalizes information from multiple sources, and as a consequence, information in this document may materially change the coding, format and clinical context of patient data. In addition, data may be omitted in some cases. CLINICAL DECISIONS SHOULD BE BASED ON THE PRIMARY CLINICAL RECORDS. [facility], [facility]. provides no warranty or guarantee of the accuracy or completeness of information in this document.
[2024-08-26 06:38] LABS: Internal QC Validated? YES +Cl - CLEAR BKGD; Pregnancy, Urine Negative Negative
[2024-08-26 06:39] LABS: Record Kit Lot#,Urine Preg 947241
[2024-08-26] MEDS: Lactated Ringers 1,000 ML 15 ML IV (06:45)
--- NOTE | 2024-08-26 06:54 | PRE.ANES_ITS ---
ASA Classification* ASA Classification ASA Classification: 1 Assessment & Plan Anesthesia* Anesthesia Assessment Anesthesia Assessment: Discussed sedation and/or anesthesia options, risks, benefits, and alternatives with patient/parents/legal guardian/POA. Questions invited. The patient/parents/legal guardian/POA seems to understand and agrees to proceed with anesthesia plan. Reviewed the physical assessment, medical history, allergy history and patient home medications list prior to surgery/procedure/anesthetic and documented any changes. Performed airway and anesthesia risk assessments. Anesthesia Type Anesthesia Type: General (discussed GA with ETT) History Source History Obtained from:: Patient and Chart Anesthesia Focused Assessment* Temperature: 97.2 F Pulse Rate: 71 Blood Pressure: 115/78 Respiratory Rate: 16 Pulse Ox: 99 Oxygen Delivery Method: Room Air Airway Assessment Mouth opens: >3 cm Mallampati Score: I Teeth Condition: Intact Labs Anesthesia Preop lab: CBC WBC 7.0 K/mm3 (4.4-11.0) 07/05/24 08:07/05/24 RBC 4.06 M/mm3 (4.2-5.4) L 07/05/24 08:30 07/05/24 Hgb 11.9 g/dL (12.0-15.0) L 07/05/24 08:30 5 Hct 35.7 % (37-47) L 07/05/24 08:30 07/05/24 Plt Count 174 K/mm3 (150-450) 07/05/24 08:30 07/05/24 CHEMISTRY Potassium 3.8 mmol/L (3.5-5.1) 08/20/21 10:19 08/20/21 Sodium 137 mmol/L (136-145) 08/20/21 10:19 08/20/21 BUN 16 mg/dL (7-18) 08/20/21 10:08/20/21 Creatinine 0.46 mg/dL (0.70-1.20) L 07/05/24 08:30 Glucose 97 mg/dL (74-106) 08/20/21 10:19 08/20/21 TSH 3.32 uIU/mL (0.358-3.74) 08/20/21 10:19 COAG Urine Test Negative Negative 08/26/24 06:07 08/26/24 Pre-Assessment Diagnosis/Proposed Procedure Planned Operative Procedure(s): (B) Laparoscopic, bilateral Salpingectomy Anesthesia History 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 When Was Last Pacemaker Check QUESTION #4 FULL TEXT: You/Your Family Experience fever (hyperthermia) with Anesthesia Last Oral Intake Last Oral intake: Last Oral Intake NPO since 21:00 08/26/24 06:24 Meds taken in AM with sips of No 08/26/24 06:24 water? Meds patient instructed to take am of surgery PONV PONV - unmanned aircraft systems roboticist: PONV - unmanned aircraft systems roboticist Female Yes 08/18/24 13:22 HX of Motion Sickness No 08/18/24 13:22 HX of N/V After Surgery No 08/18/24 13:22 Non-Smoker Yes 08/18/24 13:22 Duration of Surgery greater No 08/18/24 13:22 than 60 minutes Number of Risk Factors 2 08/18/24 13:22 PONV Score Moderate Risk 08/18/24 13:22 Height & Weight Height & Weight: Anesthesia: Height & Weight Height 5 ft 4 in 08/26/24 06:24 Weight: 86.908 kg 08/26/24 06:24 Body Mass Index (BMI) 32.8 08/26/24 06:24 Respiratory Assessment Respiratory Assessment - unmanned aircraft systems roboticist: Respiratory Tract Infection Hx - unmanned aircraft systems roboticist Hx Respiratory Tract Infection No 08/18/24 13:22 STOP Sleep Apnea STOP Sleep Apnea - unmanned aircraft systems roboticist: STOP Sleep Apnea - unmanned aircraft systems roboticist Hx Hypertension No 08/18/24 13:22 Hx Sleep Apnea No 08/18/24 13:22 CPAP BIPAP Do you snore loudly (louder No 08/18/24 13:22 than talking or can be heard Do you often feel tired/ No 08/18/24 13:22 fatigued/ sleepy during daytime? Has anyone observed you stop No 08/18/24 13:22 breathing during sleep? STOP Results Negative 08/18/24 13:22 QUESTION #5 FULL TEXT : Do you snore loudly (louder than talking or can be heard through closed doors)? 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 Specify any problems Hx of Preganancy in last 3 Yes 08/18/24 13:22 Months Nurse Filling Out Transfusion VLEHANDREW 08/18/24 13:22 & Questions: Date: 08/18/24 08/18/24 13:22 Time: 13:27 08/18/24 13:22 Patient unable to answer at this time (ie. confused, unrespo /Reproduction History /Reproductive History - unmanned aircraft systems roboticist: /Reproductive Hx- unmanned aircraft systems roboticist Hx Now Yes 08/18/24 13:22 Gestational Age (in weeks): EDC: Hx Hx Para Hx Section SAB No 08/18/24 13:22 Active Medications Active Medications: Current Medications Generic Name Dose Route Start Last Admin Trade Name Freq PRN Reason Stop Dose Admin Lactated Ringer's 1,000 mls @ 15 mls/hr 08/26/24 06:15 08/26/24 06:45 IV 15 mls/hr .Q48H MARCI Administration PFSH Medical History Non-smoker Superficial varicosities Headache Home Medications ?Medication ?Instructions ?Recorded ?Last Taken ?Type acetaminophen 500 mg tablet 1,000 mg (2 x 500 mg) PO Q 6H PRN 07/06/24 Unknown Rx PRN Pain 1-10 Or Fever #0 tabs ibuprofen 600 mg tablet 600 mg PO Q6H PRN PRN Pain S core 07/06/24 Unknown Rx 1-10 #0 tabs Allergy/AdvReac Type Severity Reaction Status Date / Time No Known Allergies Allergy Verified 08/26/24 06:23 Surgical History No history of previous surgery Social History Smoking Status: Never smoker Review of Systems (Anesthesia) ROS Narrative System reviewed and no additional complaints, except as documented. Physical Exam Const alert, oriented x3 and average body habitus HEENT dentition normal Neck full ROM Resp normal respiratory effort, normal air movement and clear to auscultation bilaterally Cardio regular rate, regular rhythm and no murmurs Neuro oriented x3 and moves all extremities
--- NOTE | 2024-08-26 07:30 | FALS_PTH ---
PATIENT: ZAN SANTOS LOC: [facility] U#:[id number] AGE/SX: 33/ ROOM: RE08/26/[address]: Dr. Karla Howard DO : 1990 BED: DIS: 08/26/2024 SPEC #: [id number] RECD: 08/26/24 10:07 STATUS: KATHLEEN REPaulo #: [id number] ROXANNA: 08/26/24 07:[address]: Karla Howard DEPT: SURGICAL PATHOLOGY RECD BY: Hudson Garcia ENTERED: 08/26/24 15:12 SP TYPE: FALL TUBES OTHR DR: Dr. Mu Mei MD Tissues: A - Fallopian tube Procedures: Surgery Specimen Level II HEADER OPERATION: Laparoscopic bilateral salpingectomy PRE-OP DIAGNOSIS: Permanent sterilization TISSUE SUBMITTED: A- Bilateral fallopian tubes MICROSCOPIC DIAGNOSIS A. Bilateral fallopian tubes, permanent sterilization bilateral salpingectomy: - Complete luminal cross-section confirmed. MICROSCOPIC DESCRIPTION Slides are reviewed. GROSS DESCRIPTION A. Received in formalin labeled with the patient's name and date of . Designated as osmel fallopian tubes are 2 undesignated, red-purple fimbriated fallopian tubes averaging 8.9 cm in length by 0.4-0.6 cm in diameter. There is a single, 0.1 cm paratubal cyst. Prospecting Observer sections are submitted in 2 cassettes, to include the paratubal cyst in cassette A1. AR 08/26/2024 CPT:97389
--- NOTE | 2024-08-26 08:11 | DCINST_ITS ---
Discharge Instructions Diet Discharge Diet: No restrictions DC O2, CPAP, BIPAP needs Home O2 Discharge instructions: No Dressing / Incision Discharge Activity: May Drive (once you are more than 24 hours out from surgery) and May Shower (once you are more than 24 hours out from surgery) May resume sexual activity in: 1 week (nothing in the vagina and no soaking in water) Ice area for (Minutes): 15 Weight Bearing Status: Weight bearing as tolerated Lifting Restrictions: nothing greater than 20-25 pounds for 1 week Dressing / Incision Call your doctor if your incision/area has: Continuous Slow Oozing, Sudden Increased Bleeding, Increased Pain/ Swelling, Increased Redness, Foul Smelling Discharge and Swelling at the incision site Call your doctor if you observe: Fever of 101 or Higher, Using more than 1 pad per hour, Shortness of breath, Dizziness, Swelling in the ankles, Chest pain, Increased palpitations (irregular heartbeat), Calf discomfort and Uncontrolled pain Remove Dressing in: leave until fall off Cleanse incision/area with: Soap & Water Follow Up Care Please Follow Up With: Karla Howard DO When: 1 week post op Test Results: Test results from this visit will be discussed in further detail at your follow- up appointment, if applicable. Discharge Plan Admission Primary Reason for Your Visit: surgery Attending Provider: Karla Howard Primary Care Provider: Mu Mei Instructions Patient Instructions: Lap Fallopian Tube Ligation Dc Print Language: Frisian Discharge Orders/Prescriptions Prescriptions: Continued acetaminophen 500 mg Tablet 1,000 mg PO Q6H PRN PRN (Reason: Pain 1-10 Or Fever) Qty: 0 0RF ibuprofen 600 mg Tablet 600 mg PO Q6H PRN PRN (Reason: Pain Score 1-10) Qty: 0 0RF Referrals / Follow Up: Mu Mei MD [Primary Care Provider] - Disposition Disposition (needs filled in before D/C Order can be placed): Home, Self Care
--- NOTE | 2024-08-26 08:13 | PCM.OPRPT ---
Problems Associated Problem List Diagnoses (1) Request for sterilization: Operative Report (Standard) Operative Information Date of Procedure: 08/26/24 Pre-Operative Diagnosis: Request for sterilization Post-Operative Diagnosis: As above Surgery/Procedure Performed: Laparoscopic bilateral salpingectomy program control analyst: Yes Skein Yarn Dyer Helper: Yuni Cohen Tasks completed by certified nursing assistant instructor: Closing, Insert Trochanter and Retracting Additional technical support assistant?: Yes Additional Paper Spooler #2: Cailin Melgar MS4 Tasks completed by technical support assistant #2: Closing Type of Anesthesia: General RN Documented Start/Stop Times: Operation Date: 08/26/24 07:30 Case Time Into Pre-Op 08/26/24 06:03 Out of Pre-Op 08/26/24 07:23 Anesthesia Start 08/26/24 07:26 Into Room 08/26/24 07:26 Procedure Start 08/26/24 07:50 Procedure Start Time: 07:50 Procedure Stop Time: 08:15 Select all DRAINS/GRAFTS/IMPLANTS that apply: None Special Medications: None Estimated Blood Loss: < 20 mL Fluids Replaced: See anesthesia record Specimen collected: Yes Description of specimen(s) removed: Bilateral fallopian tubes Description of surgery: The patient was taken to the operating room where general anesthesia was induced. She was prepped and draped in the dorsal lithotomy position using yellowfin stirrups. A weighted speculum was placed in the vagina to expose the cervix. The anterior lip of the cervix was grasped with a single-tooth tenaculum. The uterus sounded to 7 cm. A uterine manipulator was placed. Gloves were changed and attention was turned to the abdominal portion of the procedure. Local was infiltrated at all port sites. An infraumbilical incision was made to accommodate a 5 mm port. The 5 mm port was placed infraumbilically under direct visualization using the laparoscope. Once confirmed intraperitoneal CO2 insufflation was initiated. The patient was placed in Trendelenburg position. A right lateral 5 mm port was placed. A left lateral 5 mm port was placed. No injuries were noted upon entry into the abdomen or upon placement of the trocars. The uterus was upheld from below. The pelvis was normal-appearing. The right fallopian tube was followed out to the fimbriated end and elevated out of the pelvis. LigaSure device was used to serially clamp, cauterize, and transect along the mesosalpinx hugging adjacent to the fallopian tube until reaching the cornua. Once the level of the cornua the fallopian tube was transected and removed. The left fallopian tube was followed out to the fimbriated end and elevated out of the pelvis. LigaSure device was used to serially clamp, cauterize, and transect along the mesosalpinx hugging adjacent to the fallopian tube until reaching the cornua. Once at the level of the cornea the fallopian tube was transected and removed. Bilateral fallopian tubes were sent to pathology for review. Hemostasis was confirmed. All trocars were removed and the abdomen was exsufflated. The skin was closed with 4-0 Monocryl in a subicular fashion and glue. The uterine manipulator was removed vaginally. A vaginal sweep was performed. Instrument, sharp, sponge counts were correct. The patient was taken to the recovery in stable condition. Surgical Findings: Normal appearing pelvis Uterus sounded to 7 cm Complications Complications: No Admit VTE Documentation VTE Present on Admission: No VTE Mechan Device Prophylaxis: SCD's
--- NOTE | 2024-08-26 08:43 | PCM.POST.ANE ---
Anesthesia: Postop Eval I Current Vital Signs Temperature: 97.6 F Pulse Rate: 76 Blood Pressure: 131/93 Respiratory Rate: 16 Pulse Ox: 97 Oxygen Delivery Method: Room Air Assessment Airway patent: Yes Spontaneous unlabored respirations: Yes Mental status: Awake nausea: No Vomiting: No Anesthesia Complication: No Fluid Hydration Crystalloid volume administer (ml): 1,000 Total IV fluid infused: 1,000 Progress Note Anesthesia document: Postop Eval 1 completed: Yes
--- NOTE | 2024-08-26 08:58 | POSTOPAN2_ITS ---
Anesthesia Postop Eval I Sum Postop Eval Completion status Anesthesia document: Postop Eval 1 completed: Yes Anesthesia Postop Eval I Summary Anesthesia Postop Eval I Summary: Anesthesia Postop Eval I: Assessment Summary Airway patent Yes 08/26/24 08:47 RAILROAD [email or web address] Spontaneous unlabored Yes 08/26/24 08:47 RAILROAD [email or web address].ACAR respirations Mental status Awake 08/26/24 08:47 RAILROAD [email or web address].ACAR nausea No 08/26/24 08:47 RAILROAD SWITCHMAN.ACAR Vomiting No 08/26/24 08:47 RAILROAD SWITCHMAN.ACAR Anesthesia Postop Eval I: Fluid Summary Crystalloid volume administer 1,000 08/26/24 08:47 RAILROAD [email or web address].ACAR (ml) Colloids volume administered ( ml) Blood Product volume administered (ml) Total IV fluid infused 1,000 08/26/24 08:47 RAILROAD SWITCHMAN.ACAR Anesthesia Postop Eval I: Summary Notes Anesthesia Complication No 08/26/24 08:47 RAILROAD SWITCHMAN.ACAR Anesthesia Complication Comment: Post-operative progress note Anesthesia: Postop Eval II Evaluation Mental status: Awake and Calm Pain Level: 2 nausea: No Vomiting: No Complications Anesthesia Complication: No
--- NOTE | 2024-08-26 08:58 | PCM.POSTANE2 ---
Anesthesia Postop Eval I Sum Postop Eval Completion status Anesthesia document: Postop Eval 1 completed: Yes Anesthesia Postop Eval I Summary Anesthesia Postop Eval I Summary: Anesthesia Postop Eval I: Assessment Summary Airway patent Yes 08/26/24 08:47 PLANT HEALTH [email or web address] Spontaneous unlabored Yes 08/26/24 08:47 PLANT HEALTH MANAGER.ACAR respirations Mental status Awake 08/26/24 08:47 PLANT HEALTH MANAGER.ACAR nausea No 08/26/24 08:47 PLANT HEALTH MANAGER.ACAR Vomiting No 08/26/24 08:47 PLANT HEALTH MANAGER.ACAR Anesthesia Postop Eval I: Fluid Summary Crystalloid volume administer 1,000 08/26/24 08:47 PLANT HEALTH MANAGER.ACAR (ml) Colloids volume administered ( ml) Blood Product volume administered (ml) Total IV fluid infused 1,000 08/26/24 08:47 PLANT HEALTH MANAGER.ACAR Anesthesia Postop Eval I: Summary Notes Anesthesia Complication No 08/26/24 08:47 PLANT HEALTH MANAGER.ACAR Anesthesia Complication Comment: Post-operative progress note Anesthesia: Postop Eval II Evaluation Mental status: Awake and Calm Pain Level: 2 nausea: No Vomiting: No Complications Anesthesia Complication: No
== END 2024-08-26 09:42 | disposition home or self-care (01) ==
LOC: SDC 05:56 → AC 05:58
PROVIDERS: PCP Family Medicine; Referring Provider Obstetrics & Gynecology; Visit Provider Obstetrics & Gynecology
PROC: (CPT 58661; principal; 2024-08-26 07:15)
DX: Z30.2 Encounter for sterilization (principal)
CPT/HCPCS: 58661; 00840; 81025; 86850; 86900; 86901; 88302; J2405